=== PATIENT | male | born 1945 | race Caucasian/White ===

== ENCOUNTER 2016-11-04 12:20 | Emergency (ER) | payer MEDICARE ==
[2016-11-04] MEDS ORDERED: NS 0.9% 1000 ML* 1,000 ML IV ONE (14:50)
[2016-11-04 15:01] LABS: Hematocrit 45 % (42-52); Mean Corpuscular HGB Conc 34 g/dl (31-36); Mean Corpuscular Hemoglobin 30 pg (27-31); Mean Corpuscular Volume 90 fL (80-94); Mean Platelet Volume 9 um3 (7.4-10.4); Red Blood Count 4.98 10^6/ul (4.0-5.4); Red Cell Distribution Width 13 % (10.5-15); White Blood Count 11.2 10^3/ul (3.5-10.8)
[2016-11-04 15:13] LABS: ALT 3 U/L (7-52); AST 13 U/L (13-39); Albumin 4.5 g/dL (3.2-5.2); Alkaline Phosphatase 53 U/L (34-104); Anion Gap 7 mmol/L (2-11); BUN/Creatinine Ratio 32.1 (8-20); Blood Urea Nitrogen 25 mg/dL (6-24); C Reactive Protein 5.15 mg/L (< 5.00); CO2 Carbon Dioxide 26 mmol/L (22-32); Calcium 9.8 mg/dL (8.6-10.3); Chloride 102 mmol/L (101-111); EGFR African American 125.8 (>60); EGFR Non-African American 97.8 (>60); Globulin 2.8 g/dL (2-4); Glucose 106 mg/dL (70-100); Lipase < 10 U/L (11.0-82.0); Potassium 3.6 mmol/L (3.5-5.0); Sodium 135 mmol/L (133-145); Total Protein 7.3 g/dL (6.4-8.9)
--- NOTE | 2016-11-04 15:32 | RAD ---
Indication: Diffuse abdominal pain. Diarrhea for 4 days. Nausea and vomiting. Parkinson disease. History of urolithiasis with prior lithotripsy. Comparison: August 09, 2013 CT. Technique: Supine and upright views of the abdomen. Report: Negative for free air beneath the diaphragm. Few dilated small bowel loops in the LEFT abdomen with suggestion of mural thickening. Air-fluid levels at multiple small bowel loops and throughout the nondilated colon. No appreciable pneumatosis or portal venous gas. No suspicious calcifications or mass effect. RIGHT and LEFT dorsal column stimulator leads partially visualized. Unremarkable soft tissue contours. Grossly clear lung bases. IMPRESSION: Mild small bowel dilatation and mural thickening most prominent at the LEFT abdomen. Nonspecific appearance which may reflect gastroenteritis, inflammatory bowel disease, or potentially ischemia. Correlate with clinical presentation and consider CT for further assessment if deemed appropriate.
--- NOTE | 2016-11-04 16:26 | RAD ---
INDICATION: Left lower quadrant pain COMPARISON: CT August 09, 2013 TECHNIQUE: Noncontrast axial source images were acquired from the level hemidiaphragms to the symphysis pubis. The examination was ordered using a renal stone protocol which does not use oral or intravenous contrast and therefore has inherent limitations in evaluating the solid viscera and bowel. Lung bases: There is minimal left basilar atelectasis or scarring. Liver: The liver is normal in size. Noncontrast imaging shows a small hepatic hypodensity in the right hepatic lobe measuring 8 mm, unchanged Gallbladder: There are no calcified gallstones. There is no evidence of wall thickening or pericholecystic fluid.. Spleen: The spleen is normal in size. There is a small splenic granuloma The noncontrast CT appearance is otherwise unremarkable. Pancreas: There is mild pancreatic atrophy. No mass or ductal dilatation is seen on noncontrast imaging. Adrenal glands: No masses are identified. Kidneys/Bladder: There are incompletely characterized renal cortical hypodensities likely representing centimeter and smaller cysts. There is a nonobstructive 6 to 7 mm left renal calculus. Adenopathy: There is no evidence of intraperitoneal or retroperitoneal adenopathy. Evaluation is limited without oral contrast. Fluid collections: There are no free or localized fluid collections. Vessels: The aorta and iliac vessels are normal in caliber. There are no significant atherosclerotic changes. The IVC appears normal Pelvic organs: The prostate is normal in size. There are prostatic calcifications GI tract: Limited evaluation of the bowel shows no abnormality. There is no obstruction. Soft tissues: No significant soft tissue abnormalities of the extraperitoneal abdomen or pelvis are identified. A small, subcutaneous lesion in the left abdomen appears smaller. Osseous structures: There are no acute osseous findings. There are osteoarthritic changes. IMPRESSION: Nonobstructive, 6 mm left renal calculus. Probable renal and hepatic cysts
[2016-11-04] MEDS ORDERED: Morphine INJ* 4 MG/ML 1 ML CARPUJECT IV ONE (17:55)
[2016-11-04] MEDS ORDERED: Ondansetron INJ* 2 MG/ML VIAL IV ONE (17:55)
--- NOTE | 2016-11-04 17:59 | ED ---
nAu Olson Anna, scribed for Deacon Aguirre MD on 11/04/16 at 1618 . Progress - Progress Note Progress Note: DISCUSSED RESULTS WITH PATIENT/. DISCUSSED ADMISSION VERSES DISCHARGE HOME AND F/U WITH DR KEITH. PATIENT PREFERS TO GO HOME. DISCHARGE HOME STABLE. Re-Evaluation - Re-Evaluation First Eval Re-Evaluation Time: 17:43 Change: Unchanged Comment: Discussed results of CT and labs with patient. Patient reports he is still in pain, but he feels he can manage the pain at home and with follow up from his primary care physician, Dr. Keith. He will return to the ED with new or worsening symptoms. He and his are agreeable with this plan. Course/Dx - Course Course Of Treatment: DISCHARGE HOME STABLE. - Diagnoses Provider Diagnoses: Abdominal pain Diagnostics - Vital Signs Vital Signs Temp Pulse Resp BP Pulse Ox 11/04/16 15:12 65 95 11/04/16 14:30 73 123/85 94 11/04/16 14:21 64 95 11/04/16 14:19 145/97 11/04/16 13:23 98.5 F 100 20 120/66 96 11/04/16 12:23 99.5 F 75 20 95/73 97 - Laboratory Lab Results: Lab Results 11/04/16 11/04/16 11/04/16 Range/Units 14:34 14:34 14:34 WBC 11.2 H (3.5-10.8) 10^3/ul RBC 4.98 (4.0-5.4) 10^6/ul Hgb 15.0 (14.0-18.0) g/dl Hct 45 (42-52) % MCV 90 (80-94) fL MCH 30 (27-31) pg MCHC 34 (31-36) g/dl RDW 13 (10.5-15) % Plt Count 238 (150-450) 10^3/ul MPV 9 (7.4-10.4) um3 Neut % (Auto) 67.2 (38-83) % Lymph % (Auto) 23.9 L (25-47) % [place] % (Auto) 7.2 (1-9) % Eos % (Auto) 1.0 (0-6) % Baso % (Auto) 0.7 (0-2) % Absolute Neuts (auto) 7.5 (1.5-7.7) 10^3/ul Absolute Lymphs (auto) 2.7 (1.0-4.8) 10^3/ul Absolute Monos (auto) 0.8 (0-0.8) 10^3/ul Absolute Eos (auto) 0.1 (0-0.6) 10^3/ul Absolute Basos (auto) 0.1 (0-0.2) 10^3/ul Absolute Nucleated RBC 0 10^3/ul Nucleated RBC % 0 Sodium 135 (133-145) mmol/L Potassium 3.6 (3.5-5.0) mmol/L Chloride 102 (101-111) mmol/L Carbon Dioxide 26 (22-32) mmol/L Anion Gap 7 (2-11) mmol/L BUN 25 H (6-24) mg/dL Creatinine 0.78 (0.67-1.17) mg/dL Est GFR ( Amer) 125.8 (>60) Est GFR (Non-Af Amer) 97.8 (>60) BUN/Creatinine Ratio 32.1 H (8-20) Glucose 106 H (70-100) mg/dL Lactic Acid 1.1 (0.5-2.0) mmol/L Calcium 9.8 (8.6-10.3) mg/dL Total Bilirubin 0.80 (0.2-1.0) mg/dL AST 13 (13-39) U/L ALT 3 L (7-52) U/L Alkaline Phosphatase 53 (34-104) U/L C-Reactive Protein 5.15 H (< 5.00) mg/L Total Protein 7.3 (6.4-8.9) g/dL Albumin 4.5 (3.2-5.2) g/dL Globulin 2.8 (2-4) g/dL Albumin/Globulin Ratio 1.6 (1-3) Lipase < 10 L (11.0-82.0) U/L Result Diagrams: 11/04/16 14:34 11/04/16 14:34 Lab Statement: Any lab studies that have been ordered have been reviewed, and results considered in the medical decision making process. - CT CT ABD/PEL CT Interpretation: Positive (See Comments) CT Interpretation Completed By: Radiologist - IMPRESSION: Nonobstructive, 6 mm left renal calculus. Probable renal and hepatic cysts The documentation as recorded by the Anu lamar Anna accurately reflects the service I personally performed and the decisions made by me, Deacon Aguirre MD.
[2016-11-04 18:41] VITALS: BP 162/73
--- NOTE | 2016-11-05 13:10 | ED ---
Tamera Olson Salem, scribed for Tyler Butterfield MD on 11/04/16 at 1507 . Abdominal Pain/Male - HPI Summary HPI Summary: Patient is a 71 y/o male who presents to [facility] with diarrhea since 4 days. Pt reports bloating, vomiting, loss of appetite, and bilateral lower quadrant abdominal pain. He also reports GERD that began at about the same time as the diarrhea (4 days). Recumbent position increases fluctuants and burping. The pt states that Dr. Keith had recently changed his medication to Amatiza and he is the one who sent the pt to the ED for these symptoms. Family member present at bedside is also concerned about dehydration. Pt has a PMHx of PD. - History of Current Complaint Chief Complaint: EDNauseaVomitDiarrh Stated Complaint: N/V/D Time Seen by Provider: 11/04/16 14:09 Hx Obtained From: Patient, Family/Director Talent Onset/Duration: Gradual Onset, Lasting Hours Severity Initially: Moderate Severity Currently: Moderate Pain Intensity: 2 Pain Scale Used: 0-10 Numeric Location: Discrete At: RUQ, Discrete At: RLQ Aggravating Factor(s): Other: - Recumbent position. Alleviating Factor(s): Nothing Associated Signs And Symptoms: Positive: Nausea, Vomiting, Diarrhea, Other - Bloating, loss of appetite, and GERD. - Allergies/Home Medications Allergies/Adverse Reactions: Allergies Allergy/AdvReac Type Severity Reaction Status Date / Time Iohexol [From Omnipaque] Allergy Severe Difficulty Verified 11/04/16 12:23 Breathing PMH/Surg Hx/FS Hx/Imm Hx Endocrine/Hematology History: Reports: Hx Diabetes - BORDERLINE TYPE 2, CONTROLLED WITH DIET, NO MEDS Denies: Hx Anticoagulant Therapy, Hx Systemic Lupus Erythematosus Cardiovascular History: Reports: Hx Angina - NONE SINCE 2006 [place], Hx Coronary Artery Disease - STENT IN RCA, Hx Hypertension - ON MEDICATION FOR, Hx Myocardial Infarction, Hx Rheumatic Fever - YOUNG CHILD Denies: Hx Congestive Heart Failure, Hx Pacemaker/ICD Respiratory History: Denies: Hx Asthma, Hx Chronic Obstructive Pulmonary Disease (COPD) GI History: Reports: Hx Gastroesophageal Reflux Disease - TAKES MEDS JUST PRN, Hx Jaundice - as a child Denies: Other GI Disorders History: Reports: Hx Benign Prostatic Hyperplasia, Hx Kidney Stones - HISTORY OF, Other Problems/Disorders - ENLARGED PROSTATE Denies: Hx Dialysis, Hx Renal Disease Musculoskeletal History: Reports: Hx Arthritis - ALL OVER, Hx Back Problems, Hx Fibromyalgia, Other Musculoskeletal History - parkinsons Denies: Hx Rheumatoid Arthritis Sensory History: Reports: Hx Cataracts - BILATERAL, Hx Contacts or Glasses - GLASSES, Hx Vision Problem Denies: Hx Hearing Aid Opthamlomology History: Reports: Hx Cataracts - BILATERAL, Hx Contacts or Glasses - GLASSES, Hx Vision Problem Neurological History: Reports: Hx Headaches, Hx Migraine, Hx Transient Ischemic Attacks (TIA), Other Neuro Impairments/Disorders - Hx Parkinsons Denies: Hx Dementia, Hx Developmental Delay Psychiatric History: Reports: Hx Anxiety - PRN MEDICATION FOR, Hx Depression - ROUTINE MEDICATION FOR - Cancer History Hx Chemotherapy: No - Surgical History Surgery Procedure, Year, and Place: . 2006 CARDIAC stent placed to [facility] in [place]. [place] [facility] [place] in [place]. 02/2016-[facility]IZATION[place] [place] Hx Anesthesia Reactions: Yes - UNSURE IF THE REACTION 02/2016 WAS FROM CONTRAST OR FROM SEDATION - Immunization History Date of Tetanus Vaccine: 2008 Date of Influenza Vaccine: Unknown Infectious Disease History: No Infectious Disease History: Denies: Hx Clostridium Difficile, Hx Hepatitis, Hx Human Immunodeficiency Virus (HIV), Traveled Outside the in Last 30 Days - Family History Known Family History: Positive: Other - Colon [place] - Social History Alcohol Use: None Substance Use Type: Reports: None Smoking Status (MU): Former Smoker Type: Cigarettes Amount Used/How Often: 1 PPD- 1 1/2 PPD X 37 YEARS Have You Smoked in the Last Year: No Review of Systems Negative: Fever Positive: Abdominal Pain, Vomiting, Diarrhea, Nausea, Other - Bloating. Loss of appetite. All Other Systems Reviewed And Are Negative: Yes Physical Exam Triage Information Reviewed: Yes Vital Signs On Initial Exam: Initial Vitals Temp Pulse Resp BP Pulse Ox 99.5 F 75 20 95/73 97 11/04/16 12:23 11/04/16 12:23 11/04/16 12:23 11/04/16 12:23 11/04/16 12:23 Vital Signs Reviewed: Yes Appearance: Positive: Well-Appearing, No Pain Distress Skin: Positive: Warm, Skin Color Reflects Adequate Perfusion, Dry Head/Face: Positive: Normal Head/Face Inspection Eyes: Positive: Normal ENT: Positive: Other - DMM. Neck: Positive: Supple, Nontender Respiratory/Lung Sounds: Positive: Clear to Auscultation, Breath Sounds Present Cardiovascular: Positive: RRR Abdomen Description: Positive: Nontender, Soft Bowel Sounds: Positive: Present Musculoskeletal: Positive: Normal Neurological: Positive: Normal, Other - Resting tremor secondary to PD. Psychiatric: Positive: Normal, Affect/Mood Appropriate AVPU Assessment: Alert - Dionisio Coma Scale Coma Scale Total: 15 Diagnostics - Vital Signs Vital Signs Temp Pulse Resp BP Pulse Ox 11/04/16 14:30 73 123/85 94 11/04/16 14:21 64 95 11/04/16 14:19 145/97 11/04/16 13:23 98.5 F 100 20 120/66 96 11/04/16 12:23 99.5 F 75 20 95/73 97 - Laboratory Lab Results: Lab Results 11/04/16 11/04/16 11/04/16 Range/Units 14:34 14:34 14:34 WBC 11.2 H (3.5-10.8) 10^3/ul RBC 4.98 (4.0-5.4) 10^6/ul Hgb 15.0 (14.0-18.0) g/dl Hct 45 (42-52) % MCV 90 (80-94) fL MCH 30 (27-31) pg MCHC 34 (31-36) g/dl RDW 13 (10.5-15) % Plt Count 238 (150-450) 10^3/ul MPV 9 (7.4-10.4) um3 Neut % (Auto) 67.2 (38-83) % Lymph % (Auto) 23.9 L (25-47) % [place] % (Auto) 7.2 (1-9) % Eos % (Auto) 1.0 (0-6) % Baso % (Auto) 0.7 (0-2) % Absolute Neuts (auto) 7.5 (1.5-7.7) 10^3/ul Absolute Lymphs (auto) 2.7 (1.0-4.8) 10^3/ul Absolute Monos (auto) 0.8 (0-0.8) 10^3/ul Absolute Eos (auto) 0.1 (0-0.6) 10^3/ul Absolute Basos (auto) 0.1 (0-0.2) 10^3/ul Absolute Nucleated RBC 0 10^3/ul Nucleated RBC % 0 Sodium 135 (133-145) mmol/L Potassium 3.6 (3.5-5.0) mmol/L Chloride 102 (101-111) mmol/L Carbon Dioxide 26 (22-32) mmol/L Anion Gap 7 (2-11) mmol/L BUN 25 H (6-24) mg/dL Creatinine 0.78 (0.67-1.17) mg/dL Est GFR ( Amer) 125.8 (>60) Est GFR (Non-Af Amer) 97.8 (>60) BUN/Creatinine Ratio 32.1 H (8-20) Glucose 106 H (70-100) mg/dL Lactic Acid 1.1 (0.5-2.0) mmol/L Calcium 9.8 (8.6-10.3) mg/dL Total Bilirubin 0.80 (0.2-1.0) mg/dL AST 13 (13-39) U/L ALT 3 L (7-52) U/L Alkaline Phosphatase 53 (34-104) U/L C-Reactive Protein 5.15 H (< 5.00) mg/L Total Protein 7.3 (6.4-8.9) g/dL Albumin 4.5 (3.2-5.2) g/dL Globulin 2.8 (2-4) g/dL Albumin/Globulin Ratio 1.6 (1-3) Lipase < 10 L (11.0-82.0) U/L Result Diagrams: 11/04/16 14:34 11/04/16 14:34 Lab Statement: Any lab studies that have been ordered have been reviewed, and results considered in the medical decision making process. - Radiology Abd Xray Interpretation: Positive (See Comments) - Mild small bowel dilatation and mural thickening most prominent at the LEFT abdomen. Nonspecific appearance which may reflect gastroenteritis, inflammatory bowel disease, or potentially ischemia. Correlate with clinical presentation and consider CT for further assessment if deemed appropriate. Radiology Interpretation Completed By: Radiologist - See EMR - CT Ab/P wo contrast CT Interpretation Completed By: Radiologist - See EMR CT ABD/PEL CT Interpretation: Positive (See Comments) CT Interpretation Completed By: Radiologist - IMPRESSION: Nonobstructive, 6 mm left renal calculus. Probable renal and hepatic cysts Re-Evaluation - Re-Evaluation First Eval Re-Evaluation Time: 15:51 Comment: MD in room to update pt on X-ray results. Abdominal Pain Fem Course/Dx - Course Course Of Treatment: Mr. Ruiz presented to the ED with bloating and abdominal pain of several days duration. His WBC's and CRP wefre slightly elevted and a plain abdominal elsa was suggestive of possible SBO. A CT scan was ordered without contrast as he is allergic. - Diagnoses Provider Diagnoses: Abdominal pain - Provider Notifications Discussed Care Of Patient With: Dr. Aguirre Time Discussed With Above Provider: 16:00 - Change of shift Discharge - Discharge Plan Condition: Stable Disposition: HOME Patient Education Materials: Gas and Bloating (ED), Abdominal Pain (ED) Referrals: Filemon Wetzel MD [Primary Care Provider] - Merrick Keith MD [Medical Doctor] - Additional Instructions: FOLLOW UP WITH DR KEITH. RETURN TO THE EMERGENCY DEPARTMENT FOR ANY WORSENING OF YOUR CONDITION; PAIN, FEVER, YOU FEEL ILL OR QUESTIONS OR CONCERNS. The documentation as recorded by the Tamera lamar Salem accurately reflects the service I personally performed and the decisions made by me, Tyler Butterfield MD.
== END 2016-11-04 18:41 | disposition home or self-care (01) ==
LOC: ED 12:20
DX: R10.9 Unspecified abdominal pain (principal); R14.0 Abdominal distension (gaseous); K21.9 Gastro-esophageal reflux disease without esophagitis; R11.2 Nausea with vomiting, unspecified; R19.7 Diarrhea, unspecified
CPT/HCPCS: 36415; 74020; 74176; 80053; 83605; 83690; 85025; 86140; 96374; 96375; 99282; J2270; J2405

== ENCOUNTER 2017-11-17 19:40 | Inpatient (IN) | payer MEDICARE ==
[2017-11-17] MEDS ORDERED: Acetaminophen TAB* 325 MG PO ONE (20:35)
[2017-11-17] MEDS ORDERED: Piperacillin/Tazobac ADVAN(*) 3.375 GM in NS 0.9% 100 ML* 100 ML IVPB ONE (20:35)
[2017-11-17] MEDS ORDERED: Vancomycin(*) 1,000 MG in NS 0.9% 250 ML* 250 ML IVPB ONE (20:35)
[2017-11-17] MEDS ORDERED: Morphine INJ* 4 MG/ML 1 ML SYRINGE (NEW SYRINGE VERSION) IV ONE (20:36)
[2017-11-17] MEDS ORDERED: Ondansetron INJ* 2 MG/ML VIAL IV ONE (20:36)
[2017-11-17] MEDS: NS 0.9% 1000 ML*IV.FLUID IV ONE ×3 (21:04→23:57)
--- NOTE | 2017-11-17 21:15 | RAD ---
INDICATION: Generalized weakness and body aches for one week. Comparison: November 04, 2016 CT abdomen. June 19, 2016 chest radiograph. Technique: Upright AP 0 hours Report: Elevated lung volumes and both diffuse mild prominence of the interstitial markings and patchy rarefaction of the mid to upper lung zone interstitial markings. Mild linear consolidation at the lung bases is most suspicious for subsegmental atelectasis. No suspicious focal pulmonary lesion, pleural effusion, or pneumothorax. The heart, pulmonary vasculature, and mediastinal contours are unremarkable. Spinal cord stimulator leads noted without change. IMPRESSION: Stigmata of obstructive lung disease. Linear atelectasis at the lung bases. No compelling evidence for pneumonia.
[2017-11-17 21:43] LABS: ABS Basophils 0 10^3/ul (0-0.2); ABS Eosinophils 0 10^3/ul (0-0.6); ABS Monocytes 0.7 10^3/ul (0-0.8); ABS Neutrophils 6.8 10^3/ul (1.5-7.7); ABS Nucleated RBC 0 10^3/ul; Eosinophil % 0 % (0-6); Hematocrit 41 % (42-52); Hemoglobin 13.8 g/dl (14.0-18.0); Lymphocyte % 12.1 % (25-47); Mean Corpuscular HGB Conc 34 g/dl (31-36); Mean Corpuscular Hemoglobin 31 pg (27-31); Mean Corpuscular Volume 93 fL (80-94); Mean Platelet Volume 8 um3 (7.4-10.4); Nucleated Red Blood Cells % 0; Platelet Count 172 10^3/ul (150-450); Red Blood Count 4.39 10^6/ul (4.0-5.4); Red Cell Distribution Width 13 % (10.5-15); White Blood Count 8.6 10^3/ul (3.5-10.8)
[2017-11-17 21:50] LABS: INR 1.1 (0.77-1.02)
[2017-11-17 22:01] LABS: EGFR Non-African American 112.4 (>60)
--- NOTE | 2017-11-17 22:54 | ED ---
Shane Olson Angela, scribed for Tu Ding MD on 11/17/17 at 203 . Complex/Multi-Sys Presentation - HPI Summary HPI Summary: This pt is a 72 y/o male presenting to [facility] c/o body aches for "years" and generalized weakness. Pt is on lift chair but does not ambulate very much, due to his parkinson's. Pt has hx of Parkinson's Disease, diagnosed about 10 years ago. Pt ambulates at baseline with a cane and holding on to the wall. Per , pt has decreased appetite and bed sores due to decreased ambulation. Denies nausea, vomiting, diarrhea. Pt is currently on amitiza for constipation. Pt lives at home with his only. He takes oxycodone and acetaminophen for pain at home. one pill at 15:30 today. Pt has 100.8 F fever currently in the ED. - History Of Current Complaint Chief Complaint: EDWeakness Time Seen by Provider: 11/17/17 20:17 Hx Obtained From: Patient, Family/Transplanter Orchid - Onset/Duration: Lasting Days, Still Present Timing: Days Severity Currently: Moderate Location: Pain At: - all over body Aggravating Factor(s): nothing Alleviating Factor(s): nothing Associated Signs And Symptoms: Positive: Weakness - generalized, Decreased Oral Intake, Fever, Other - constipation, body aches, bed sores. Negative: Nausea, Vomiting, Diarrhea - Allergies/Home Medications Allergies/Adverse Reactions: Allergies Allergy/AdvReac Type Severity Reaction Status Date / Time MS Iohexol [From Omnipaque] Allergy Severe Difficulty Verified 11/17/17 20:08 Breathing PMH/Surg Hx/FS Hx/Imm Hx Endocrine/Hematology History: Reports: Hx Diabetes - BORDERLINE TYPE 2, CONTROLLED WITH DIET, NO MEDS Denies: Hx Anticoagulant Therapy, Hx Systemic Lupus Erythematosus Cardiovascular History: Reports: Hx Angina - NONE SINCE 2006 [place], Hx Coronary Artery Disease - STENT IN RCA, Hx Hypertension - ON MEDICATION FOR, Hx Myocardial Infarction, Hx Rheumatic Fever - YOUNG CHILD Denies: Hx Congestive Heart Failure, Hx Pacemaker/ICD Respiratory History: Denies: Hx Asthma, Hx Chronic Obstructive Pulmonary Disease (COPD) GI History: Reports: Hx Gastroesophageal Reflux Disease - TAKES MEDS JUST PRN, Hx Jaundice - as a child Denies: Other GI Disorders History: Reports: Hx Benign Prostatic Hyperplasia, Hx Kidney Stones - HISTORY OF, Other Problems/Disorders - ENLARGED PROSTATE Denies: Hx Dialysis, Hx Renal Disease Musculoskeletal History: Reports: Hx Arthritis - ALL OVER, Hx Back Problems, Hx Fibromyalgia, Other Musculoskeletal History - parkinsons Denies: Hx Rheumatoid Arthritis Sensory History: Reports: Hx Cataracts - BILATERAL, Hx Contacts or Glasses - GLASSES, Hx Vision Problem Denies: Hx Hearing Aid Opthamlomology History: Reports: Hx Cataracts - BILATERAL, Hx Contacts or Glasses - GLASSES, Hx Vision Problem Neurological History: Reports: Hx Headaches, Hx Migraine, Hx Transient Ischemic Attacks (TIA), Other Neuro Impairments/Disorders - Hx Parkinsons Denies: Hx Dementia, Hx Developmental Delay Psychiatric History: Reports: Hx Anxiety - PRN MEDICATION FOR, Hx Depression - ROUTINE MEDICATION FOR - Cancer History Hx Chemotherapy: No - Surgical History Surgery Procedure, Year, and Place: . 2006 CARDIAC stent placed to RCA in [place]. 2010 lithotripsy [facility] [place]. 2010 and 2011 DORSAL STIMULATOR in [place]. 02/2016-HEART CATHETERIZATION-[facility] [place] Hx Anesthesia Reactions: Yes - UNSURE IF THE REACTION 02/2016 WAS FROM CONTRAST OR FROM SEDATION - Immunization History Date of Tetanus Vaccine: 2008 Date of Influenza Vaccine: Has not received Infectious Disease History: No Infectious Disease History: Denies: Hx Clostridium Difficile, Hx Hepatitis, Hx Human Immunodeficiency Virus (HIV), Traveled Outside the [place] in Last 30 Days - Family History Known Family History: Positive: Other - Colon [place] - Social History Alcohol Use: None Substance Use Type: Reports: None Smoking Status (MU): Former Smoker Type: Cigarettes Amount Used/How Often: 1 PPD- 1 1/2 PPD X 37 YEARS Have You Smoked in the Last Year: No Review of Systems Constitutional: Other - decreased appetite Positive: Fever Gastrointestinal: Other - constipation Positive: Myalgia Skin: Other - bed sores Positive: Weakness All Other Systems Reviewed And Are Negative: Yes Physical Exam - Summary Physical Exam Summary: VITAL SIGNS: Reviewed. GENERAL: Patient is a well-developed and nourished male who seems lethargic and weak. Patient is not in any acute respiratory distress. HEAD AND FACE: No signs of trauma. No ecchymosis, hematomas or skull depressions. No sinus tenderness. EYES: PERRLA, EOMI x 2, No injected conjunctiva, no nystagmus. EARS: Hearing grossly intact. Ear canals and tympanic membranes are within normal limits. MOUTH: Oropharynx within normal limits. NECK: Supple, trachea is midline, no adenopathy, no JVD, no carotid bruit, no c- spine tenderness, neck with full ROM. CHEST: Symmetric, no tenderness at palpation LUNGS: Clear to auscultation bilaterally. No wheezing or crackles. CVS: Regular rate and rhythm, S1 and S2 present, no murmurs or gallops appreciated. ABDOMEN: Soft, non-tender. No signs of distention. No rebound no guarding, and no masses palpated. Bowel sounds are normal. EXTREMITIES: FROM in all major joints, no edema, no cyanosis or clubbing. NEURO: Alert and oriented x 3. No acute neurological deficits. Speech is normal and follows commands. Static tremors of left hand. SKIN: Dry and warm. Stage 2 ulcer over the medial buttocks with surrounding erythema. Triage Information Reviewed: Yes Vital Signs On Initial Exam: Initial Vitals Temp Pulse Resp BP Pulse Ox 98.4 F 94 16 144/73 93 11/17/17 19:45 11/17/17 19:45 11/17/17 19:45 11/17/17 19:45 11/17/17 19:45 Vital Signs Reviewed: Yes Diagnostics - Vital Signs Vital Signs Temp Pulse Resp BP Pulse Ox 11/17/17 20:01 25 11/17/17 20:00 126/55 11/17/17 19:45 98.4 F 94 16 144/73 93 - Laboratory Result Diagrams: 11/17/17 21:20 11/17/17 21:20 Lab Statement: Any lab studies that have been ordered have been reviewed, and results considered in the medical decision making process. - Radiology Chest XR Xray Interpretation: Positive (See Comments) - IMPRESSION: Stigmata of obstructive lung disease. Linear atelectasis at the lung bases. No compelling evidence for pneumonia. Dr. Ding has reviewed this radiology report. Radiology Interpretation Completed By: Radiologist - EKG 20:04 Cardiac Rate: NL EKG Rhythm: Sinus Rhythm - at 88 bpm EKG Interpretation: Right bundle branch block Complex Multi-Symp Course/Dx Course Of Treatment: Pt is a 72 y/o male who presents with body aches for "years " and generalized weakness. Chest XR shows stigmata of obstructive lung disease. Linear atelectasis at the lung bases. No compelling evidence for pneumonia. In the ED course, the pt was given morphine, Tylenol, vancomycin, Zosyn, and Zofran. I discussed pt care with Dr. Martin, hospitalist, who has agreed to admit the pt. - Diagnoses Provider Diagnoses: Weakness, Decubitus ulcer - Physician Notifications Discussed Care Of Patient With: Maxwell Martin Time Discussed With Above Provider: 22:33 Instructed by Provider To: Other - I discussed pt care with Dr. Martin, hospitalist, who has agreed to admit the pt. Discharge - Discharge Plan Condition: Stable Disposition: ADMITTED TO [facility] Referrals: Filemon Wetzel MD [Primary Care Provider] - The documentation as recorded by the Shane lamar Angela accurately reflects the service I personally performed and the decisions made by , Tu Ding MD.
--- NOTE | 2017-11-17 23:51 | HP ---
H&P (Free Text) History and Physical: PCP: Curt Wetzel MD Date/Time: 11/17/2017 2350 CC: generalized malaise HPI: Mr Ruiz is a 72YO white male HX Parkinsonism, CAD/OR/stent, TIA, fibromyalgia, chronic LBP, who reports intermittent nausea without vomiting, poor appetite, loose stools, intermittent F/C, easy fatigability and sweats over the past year. He has lost 20-25 pounds over the past 6 months (40 per his ). He spends most of his time in a lift chair, only ambulating around his home 2-3 times daily, often with a cane or with the assistance of his . Tonight he felt his generalized weakness was worse prompting this evaluation. He denies chest pain, SOB, palpitations, abdominal pain, change in bowel/bladder , or other issues. ED physician found his temperature to be 101.3F with an saO2 in the 80s. Influenza is negative. Lab work is unremarkable. PMedHx CAD/OR/stent Parkinsonism HTN HLD urolithiasis fibromyalgia TIA chronic LBP vertigo constipation dominant IBS Ambulatory Orders Aspirin TAB* [Aspirin 325 MG TAB*] 325 mg PO DAILY 11/17/12 Carbidopa/Levodop 25/100 MG(*) [Sinemet 25/100 TAB(*)] 1 tab PO QID 11/17/12 Metoprolol Tartrate TAB* [Lopressor TAB*] 25 mg PO BID 11/17/12 Nitroglycerin TAB 0.4 MG* 0.4 mg SL Q5M PRN 11/17/12 Simvastatin TAB(NF) [Zocor 20 MG (NF)] 40 mg PO BEDTIME 11/17/12 Diazepam TAB(*) [Valium TAB(*)] 10 mg PO TID PRN 08/11/13 Meclizine TAB* [Antivert 12.5 TAB*] 12.5 - 25 mg PO TID PRN 08/11/13 oxyCODONE/Acetamin 5/325 MG* [Percocet 5/325 TAB*] 1 tab PO Q4H PRN 08/24/13 Multivitamins/Minerals TAB* [Thera M Plus TAB*] 1 tab PO DAILY 10/12/13 traZODone TAB* [Desyrel TAB*] 50 mg PO BEDTIME 07/29/16 Lubiprostone [Amitiza] 24 mcg PO BID 05/06/17 Allergies iohexol Allergy (Verified 11/18/17 01:56) Difficulty Breathing PSurgHx L meniscal repair R rotator cuff repair B carpal tunnel release spinal stimulator implant/removal x2 SocHx: quit smoking ~30 years ago w/ ~45PYHX, no alcohol or recreational drugs; lives with his ; full code status FamHx: Mother: passed at 83 2nd complication of Alzheimer's; Father: passed in his 80s w/ CVA & colon CA; twin brother: estranged ROS: as above, otherwise reviewed and all were negative vitals: Vital Signs Temp 37.5 C 11/18/17 07:39 Pulse 111 11/18/17 07:39 Resp 20 11/18/17 07:39 BP 132/53 11/18/17 07:39 Pulse Ox 94 11/18/17 07:42 Constitutional: NAD, normally developed, frail appearing elderly white male HEENM: atraumatic; sclera/conjunctiva: anicteric/clear; hearing: clinically mildly decreased; oropharynx: clear, mucosa tacky Neck: soft tissue: non-tender; thyroid: normal Pulmonary: diminished B, fair to good aeration, ineffective cough, no accessory muscle use CV: RR/RR, normal S1S2, no carotid bruit, no jugular venous distention, 2+ B DP/ PT, no edema Abdominal: soft, non-distended, non-tender, no rebound/guarding/rigidity, normoactive bowel sounds, no hepatosplenomegaly or masses, no costovertebral angle tenderness Musculoskeletal: general: grossly intact, mild tenderness to B shins w/ palpation Integumental: L gluteal ~5.5cm non-blanching stg 2 pressure ulcer with full thickness fissure, mildly tender to palpation, no malodor/warmth/induration Psychiatric orientation: AA&O to PPS affect: calm mood: pleasant/cooperative eye contact: good content: reliable responses: timely insight: fair Testing: Lab Results 11/17/17 11/17/17 11/17/17 Range/Units 21:20 21:20 21:20 WBC 8.6 (3.5-10.8) 10^3/ul RBC 4.39 (4.0-5.4) 10^6/ul Hgb 13.8 L (14.0-18.0) g/dl Hct 41 L (42-52) % MCV 93 (80-94) fL MCH 31 (27-31) pg MCHC 34 (31-36) g/dl RDW 13 (10.5-15) % Plt Count 172 (150-450) 10^3/ul MPV 8 (7.4-10.4) um3 Neut % (Auto) 79.1 (38-83) % Lymph % (Auto) 12.1 L (25-47) % [place] % (Auto) 8.6 H (0-7) % Eos % (Auto) 0 (0-6) % Baso % (Auto) 0.2 (0-2) % Absolute Neuts (auto) 6.8 (1.5-7.7) 10^3/ul Absolute Lymphs (auto) 1.0 (1.0-4.8) 10^3/ul Absolute Monos (auto) 0.7 (0-0.8) 10^3/ul Absolute Eos (auto) 0 (0-0.6) 10^3/ul Absolute Basos (auto) 0 (0-0.2) 10^3/ul Absolute Nucleated RBC 0 10^3/ul Nucleated RBC % 0 INR (Anticoag Therapy) 1.10 H (0.77-1.02) APTT 36.3 (26.0-36.3) seconds Sodium 136 (133-145) mmol/L Potassium 3.7 (3.5-5.0) mmol/L Chloride 103 (101-111) mmol/L Carbon Dioxide 25 (22-32) mmol/L Anion Gap 8 (2-11) mmol/L BUN 15 (6-24) mg/dL Creatinine 0.69 (0.67-1.17) mg/dL Est GFR ( Amer) 144.5 (>60) Est GFR (Non-Af Amer) 112.4 (>60) BUN/Creatinine Ratio 21.7 H (8-20) Glucose 99 (70-100) mg/dL Lactic Acid (0.5-2.0) mmol/L Calcium 8.7 (8.6-10.3) mg/dL Total Bilirubin 0.60 (0.2-1.0) mg/dL AST 10 L (13-39) U/L ALT 8 (7-52) U/L Alkaline Phosphatase 43 (34-104) U/L Troponin I 0.00 (<0.04) ng/mL Total Protein 6.1 L (6.4-8.9) g/dL Albumin 3.5 (3.2-5.2) g/dL Globulin 2.6 (2-4) g/dL Albumin/Globulin Ratio 1.3 (1-3) Urine Color Urine Appearance Urine pH (5-9) Ur Specific [place] (1.010-1.030) Urine Protein (Negative) Urine Ketones (Negative) Urine Blood (Negative) Urine Nitrate (Negative) Urine Bilirubin (Negative) Urine Urobilinogen (Negative) Ur Leukocyte Esterase (Negative) Urine WBC (Auto) (Absent) Urine RBC (Auto) (Absent) Urine Bacteria (Absent) Urine Glucose (Negative) Influenza A (Rapid) (Negative) Influenza B (Rapid) (Negative) 11/17/17 11/17/17 11/18/17 Range/Units 21:20 21:59 02:05 WBC (3.5-10.8) 10^3/ul RBC (4.0-5.4) 10^6/ul Hgb (14.0-18.0) g/dl Hct (42-52) % MCV (80-94) fL MCH (27-31) pg MCHC (31-36) g/dl RDW (10.5-15) % Plt Count (150-450) 10^3/ul MPV (7.4-10.4) um3 Neut % (Auto) (38-83) % Lymph % (Auto) (25-47) % [place] % (Auto) (0-7) % Eos % (Auto) (0-6) % Baso % (Auto) (0-2) % Absolute Neuts (auto) (1.5-7.7) 10^3/ul Absolute Lymphs (auto) (1.0-4.8) 10^3/ul Absolute Monos (auto) (0-0.8) 10^3/ul Absolute Eos (auto) (0-0.6) 10^3/ul Absolute Basos (auto) (0-0.2) 10^3/ul Absolute Nucleated RBC 10^3/ul Nucleated RBC % INR (Anticoag Therapy) (0.77-1.02) APTT (26.0-36.3) seconds Sodium (133-145) mmol/L Potassium (3.5-5.0) mmol/L Chloride (101-111) mmol/L Carbon Dioxide (22-32) mmol/L Anion Gap (2-11) mmol/L BUN (6-24) mg/dL Creatinine (0.67-1.17) mg/dL Est GFR ( Amer) (>60) Est GFR (Non-Af Amer) (>60) BUN/Creatinine Ratio (8-20) Glucose (70-100) mg/dL Lactic Acid 0.8 (0.5-2.0) mmol/L Calcium (8.6-10.3) mg/dL Total Bilirubin (0.2-1.0) mg/dL AST (13-39) U/L ALT (7-52) U/L Alkaline Phosphatase (34-104) U/L Troponin I (<0.04) ng/mL Total Protein (6.4-8.9) g/dL Albumin (3.2-5.2) g/dL Globulin (2-4) g/dL Albumin/Globulin Ratio (1-3) Urine Color Yellow Urine Appearance Clear Urine pH 5.0 (5-9) Ur Specific [place] 1.015 (1.010-1.030) Urine Protein Negative (Negative) Urine Ketones 1+ A (Negative) Urine Blood 2+ A (Negative) Urine Nitrate Negative (Negative) Urine Bilirubin Negative (Negative) Urine Urobilinogen Negative (Negative) Ur Leukocyte Esterase Negative (Negative) Urine WBC (Auto) Trace(0-5/hpf) (Absent) Urine RBC (Auto) 1+(3-5/hpf) A (Absent) Urine Bacteria Absent (Absent) Urine Glucose Negative (Negative) Influenza A (Rapid) Negative (Negative) Influenza B (Rapid) Negative (Negative) 11/18/17 Range/Units 08:20 WBC 6.6 (3.5-10.8) 10^3/ul RBC 4.35 (4.0-5.4) 10^6/ul Hgb 13.6 L (14.0-18.0) g/dl Hct 40 L (42-52) % MCV 93 (80-94) fL MCH 31 (27-31) pg MCHC 34 (31-36) g/dl RDW 13 (10.5-15) % Plt Count 156 (150-450) 10^3/ul MPV 8 (7.4-10.4) um3 Neut % (Auto) (38-83) % Lymph % (Auto) (25-47) % [place] % (Auto) (0-7) % Eos % (Auto) (0-6) % Baso % (Auto) (0-2) % Absolute Neuts (auto) (1.5-7.7) 10^3/ul Absolute Lymphs (auto) (1.0-4.8) 10^3/ul Absolute Monos (auto) (0-0.8) 10^3/ul Absolute Eos (auto) (0-0.6) 10^3/ul Absolute Basos (auto) (0-0.2) 10^3/ul Absolute Nucleated RBC 10^3/ul Nucleated RBC % INR (Anticoag Therapy) (0.77-1.02) APTT (26.0-36.3) seconds Sodium (133-145) mmol/L Potassium (3.5-5.0) mmol/L Chloride (101-111) mmol/L Carbon Dioxide (22-32) mmol/L Anion Gap (2-11) mmol/L BUN (6-24) mg/dL Creatinine (0.67-1.17) mg/dL Est GFR ( Amer) (>60) Est GFR (Non-Af Amer) (>60) BUN/Creatinine Ratio (8-20) Glucose (70-100) mg/dL Lactic Acid (0.5-2.0) mmol/L Calcium (8.6-10.3) mg/dL Total Bilirubin (0.2-1.0) mg/dL AST (13-39) U/L ALT (7-52) U/L Alkaline Phosphatase (34-104) U/L Troponin I (<0.04) ng/mL Total Protein (6.4-8.9) g/dL Albumin (3.2-5.2) g/dL Globulin (2-4) g/dL Albumin/Globulin Ratio (1-3) Urine Color Urine Appearance Urine pH (5-9) Ur Specific [place] (1.010-1.030) Urine Protein (Negative) Urine Ketones (Negative) Urine Blood (Negative) Urine Nitrate (Negative) Urine Bilirubin (Negative) Urine Urobilinogen (Negative) Ur Leukocyte Esterase (Negative) Urine WBC (Auto) (Absent) Urine RBC (Auto) (Absent) Urine Bacteria (Absent) Urine Glucose (Negative) Influenza A (Rapid) (Negative) Influenza B (Rapid) (Negative) ECG, personally reviewed: sinus RBBB rate 88, T-wave inversion V1-4, non- specific ST-T changes diffusely CXR, personally reviewed: IMPRESSION: Stigmata of obstructive lung disease. Linear atelectasis at the lung bases. No compelling evidence for pneumonia. Impression: 72M presenting with fever of uncertain source and unrelated stg 2 pressure ulcer on L gluteal cleft DIAGNOSIS & PLAN Primary fever of uncertain origin : blood & urine CXs : given vancomycin, piperacillin/tazobactam, & azithromycin in ED : will hold further ABX & monitor temperature & WBC curves along with CXs : supportive care generalized deconditioning : PT/OT evaluations : will likely need inpatient rehab vs long-term placement, if accepting Secondary CAD/OR/stent : continue aspirin Parkinsonism : continue carbi/levodopa & diazepam HTN : continue metoprolol HLD : continue simvastatin TIA : continue aspirin chronic LBP : continue oxycodoneAPA vertigo : continue meclizine constipation dominant IBS : continue lubiprostone Admission Rational: observation for fever, initiate TX for stg 2 gluteal decubitus DVTp: SCDs & heparin Code Status: full HCP:
[2017-11-18] MEDS ORDERED: Diazepam TAB(*) 10 MG PO PRN (01:21)
[2017-11-18] MEDS ORDERED: Meclizine TAB* 12.5 MG PO PRN (01:21)
[2017-11-18] MEDS ORDERED: CMCS: Melatonin (NF) 3 MG TAB PO PRN (01:24)
[2017-11-18 02:35] LABS: Urine Appearance Clear; Urine Blood 2+ (Negative); Urine Color Yellow; Urine Ketones 1+ (Negative); Urine Protein Negative (Negative); Urine Specific Gravity 1.015 (1.010-1.030); Urine Urobilinogen Negative (Negative)
[2017-11-18] MEDS: NS 0.9% 1000 ML* 1,000 ML IV SCH ×2 (02:35→12:41)
[2017-11-18] MEDS: oxyCODONE/Acetamin 5/325 MG* TAB PO PRN ×4 (02:45→19:51)
[2017-11-18] MEDS: Omeprazole CAP* 20 MG PO SCH (05:07)
[2017-11-18] MEDS ORDERED: Albuterol 2.5 MG/3 ML NEB.SOL* (0.083%) INH PRN (08:21)
[2017-11-18] MEDS ORDERED: Benzonatate CAP* 100 MG PO PRN (08:22)
[2017-11-18 08:30] LABS: Hematocrit 40 % (42-52); Hemoglobin 13.6 g/dl (14.0-18.0); Mean Corpuscular HGB Conc 34 g/dl (31-36); Mean Corpuscular Hemoglobin 31 pg (27-31); Mean Corpuscular Volume 93 fL (80-94); Mean Platelet Volume 8 um3 (7.4-10.4); Platelet Count 156 10^3/ul (150-450); Red Blood Count 4.35 10^6/ul (4.0-5.4); Red Cell Distribution Width 13 % (10.5-15); White Blood Count 6.6 10^3/ul (3.5-10.8)
[2017-11-18] MEDS: Mometasone/Formoter 100/5 MDI INH SCH ×2 (08:39→20:02)
[2017-11-18] MEDS ORDERED: Azithromycin IV(*) 500 MG in D5W 250 ML BAG* 250 ML IVPB SCH (09:00)
[2017-11-18] MEDS: Azithromycin IV(*) 500 MG in NS 0.9% 250 ML* 250 ML IVPB SCH (09:30)
[2017-11-18] MEDS: Aspirin TAB* 325 MG PO SCH (09:31)
[2017-11-18] MEDS: Metoprolol Tartrate TAB* 25 MG PO SCH ×2 (09:31→19:51)
[2017-11-18] MEDS: guaiFENesin ER TAB 600 MG PO SCH ×2 (09:31→19:51)
[2017-11-18] MEDS: Carbidopa/Levodop 25/100 MG TAB(*) PO SCH ×4 (09:31→21:26)
[2017-11-18] MEDS: Acetaminophen TAB* 325 MG PO PRN ×2 (09:41→21:27)
[2017-11-18] MEDS: Lubiprostone 24 MCG CAP (NF) PO SCH ×2 (09:46→20:00)
--- NOTE | 2017-11-18 09:51 | PN ---
Subjective Date of Service: 11/18/17 Interval History: Per RN, patient with 102.2 fever. Tylenol provided. Azithromycin started. Blood culture and wound culture ordered. Objective Active Medications: Acetaminophen (Tylenol Tab*) 650 mg PO Q6H PRN PRN Reason: FEVER/PAIN Last Admin: 11/18/17 09:41 Dose: 650 mg Albuterol (Ventolin 2.5 Mg/3 Ml Neb.Solange*) 2.5 mg INH Q6H PRN PRN Reason: SOB/WHEEZING Aspirin (Aspirin Tab*) 325 mg PO DAILY [facility] Last Admin: 11/18/17 09:31 Dose: 325 mg Atorvastatin Calcium (Lipitor*) 20 mg PO BEDTIME [facility] Benzonatate (Tessalon Cap*) 100 mg PO BID PRN PRN Reason: COUGH Carbidopa/Levodopa (Sinemet 25/100 Tab(*)) 1 tab PO QID [facility] Last Admin: 11/18/17 09:31 Dose: 1 tab Diazepam (Valium Tab(*)) 10 mg PO TID PRN PRN Reason: ANXIETY Guaifenesin (Mucinex*) 600 mg PO BID [facility] Last Admin: 11/18/17 09:31 Dose: 600 mg Heparin Sodium (Porcine) (Heparin Vial(*)) 5,000 units SUBCUT Q8HR [facility] Sodium Chloride (Ns 0.9% 1000 Ml*) 1,000 mls @ 75 mls/hr IV PER RATE [facility] Last Admin: 11/18/17 02:35 Dose: 75 mls/hr Azithromycin 500 mg/ Sodium (Chloride) 250 mls @ 250 mls/hr IVPB Q24H [facility] Last Admin: 11/18/17 09:30 Dose: 250 mls/hr Lubiprostone (Amitiza (Nf)) 24 mcg PO BID [facility] Last Admin: 11/18/17 09:46 Dose: Not Given Meclizine HCl (Antivert Tab*) 12.5 mg PO TID PRN PRN Reason: DIZZINESS Melatonin (Melatonin (Nf)) 3 mg PO BEDTIME PRN; Protocol PRN Reason: Sleep Metoprolol Tartrate (Lopressor Tab*) 25 mg PO BID [facility] Last Admin: 11/18/17 09:31 Dose: 25 mg Mometasone Furoate/Formoterol Fumar (Dulera 100/5 Mdi*) 2 puff INH BID [facility] Last Admin: 11/18/17 08:39 Dose: Not Given Omeprazole (Prilosec Cap*) 20 mg PO DAILY@0600 [facility] Last Admin: 11/18/17 05:07 Dose: 20 mg Ondansetron HCl (Zofran Inj*) 4 mg IV Q6H PRN PRN Reason: NAUSEA Oxycodone/Acetaminophen (Percocet 5/325 Tab*) 1 tab PO Q4H PRN PRN Reason: PAIN Last Admin: 11/18/17 09:41 Dose: 1 tab Trazodone HCl (Desyrel Tab*) 50 mg PO BEDTIME [facility] Vital Signs - 8 hr 11/18/17 11/18/17 11/18/17 02:00 02:10 02:45 Temperature 98.0 F 98.0 F Pulse Rate 91 87 Respiratory 19 16 18 Rate Blood Pressure 107/86 107/86 (mmHg) O2 Sat by Pulse 91 92 Oximetry 11/18/17 11/18/17 11/18/17 03:09 03:45 04:48 Temperature 98.3 F 98.7 F Pulse Rate 76 72 Respiratory 18 16 17 Rate Blood Pressure 117/52 114/55 (mmHg) O2 Sat by Pulse 96 98 Oximetry 11/18/17 11/18/17 11/18/17 07:39 07:42 09:41 Temperature 99.5 F Pulse Rate 111 Respiratory 20 18 Rate Blood Pressure 132/53 (mmHg) O2 Sat by Pulse 85 94 Oximetry 11/18/17 09:44 Temperature 102.2 F Pulse Rate Respiratory Rate Blood Pressure (mmHg) O2 Sat by Pulse Oximetry Oxygen Devices in Use Now: Nasal Cannula Result Diagrams: 11/18/17 08:20 11/17/17 21:20 Assess/Plan/Problems-Billing Assessment:
[2017-11-18] MEDS ORDERED: NS 0.9% 500 ML* 500 ML IV ONE (11:31)
[2017-11-18] MEDS: Ondansetron INJ* 2 MG/ML VIAL IV PRN ×2 (15:00→21:27)
--- NOTE | 2017-11-18 18:12 | HP ---
ADMISSION HISTORY AND PHYSICAL: DATE OF ADMISSION: 11/17/17 PRIMARY CARE PROVIDER: Dr. Wetzel. ATTENDING PHYSICIAN: Marina Padilla MD * (DICTATED BY BASILIA REEDER NP) HISTORY OF PRESENT ILLNESS: This is a pleasant 72-year-old male patient with a history significant for Parkinson's disease, hypertension, hyperlipidemia, fibromyalgia, vertigo, history of [place], TIA, chronic back pain and coronary artery disease, presents in the emergency department with his this past evening with a complaint of advancing general weakness and inability to ambulate with gait disturbance and also reported fever at home. Per the ER note , it looks like his is stating that the patient has had decreased appetite and increase in bed sores secondary to difficulty ambulating. The patient states he feels febrile and has pain all over; however, he does not have a temperature this morning. PAST MEDICAL HISTORY: As above. MEDICATIONS: At home include: 1. Meclizine 12.5 mg 3 times a day as needed. 2. Oxycodone/acetaminophen 5/325 mg 1 tablet q.4 hours as needed for pain. 3. Simvastatin 20 mg daily. 4. Nitroglycerin 0.4 mg as needed. 5. Multivitamin 1 tablet daily. 6. Valium 10 mg 3 times a day as needed. 7. Trazodone 50 mg at bedtime. 8. Metoprolol tartrate 25 mg b.i.d. 9. Amitiza 24 mcg 2 times daily. 10. Aspirin 325 mg daily. 11. Sinemet 25/100 one tablet 4 times a day. ALLERGIES: The patient has no known drug allergies. FAMILY HISTORY: Mother is . No clear etiology of her demise. Father with CVA and colon cancer. SOCIAL HISTORY: The patient is a former smoker. He denies drinking any alcohol. No illicit drug use. He is . He lives at home with his . His surrogate decision maker is his . REVIEW OF SYSTEMS: A 10-point review of systems is negative except as noted in HPI. The patient does have a cough, nonproductive. PHYSICAL EXAMINATION GENERAL: The patient is awake and alert, mild amount of anxiety noted. VITAL SIGNS: Currently, blood pressure 114/55, heart rate 72, respiratory rate 16, satting at 98% on room air, temperature is 98.7. HEENT: The patient is atraumatic and normocephalic. PERRLA, nonicteric sclerae. NECK: Supple, nontender. No JVD noted. No carotid bruit auscultated. LUNGS: Scattered rhonchi at the bases. No wheezing or rales noted. CARDIOVASCULAR: S1 and S2 were present. No murmurs, gallops, or rubs. ABDOMEN: Soft, nontender, and nondistended. Positive bowel sounds in all 4 quadrants. Hypoactive in the left lower quadrant primarily. MUSCULOSKELETAL: There is no clubbing and no cyanosis. No edema noted. He has +2 distal pulses palpable. NEUROLOGIC: He is alert and oriented x3. He has significant Parkinsonian tremors particularly in the upper extremities. Focal neuro exam beyond his Parkinsonian tremors is negative. PSYCHIATRIC: He is cooperative, although anxious and appropriate. DIAGNOSTIC STUDIES/LAB DATA: Today; WBCs 8.6, RBCs 4.39, hemoglobin 13.8, hematocrit 41. Sodium 136, potassium 3.7, chloride 103, CO2 25, BUN 15, creatinine 0.69, GFR is 112.4. Glucose is 99, lactic acid 0.8, calcium 8.7, protein 6.1, albumin is 3.5, AST 10, ALT 8, alk phos 43. Troponin is negative at 0.00. Chest x- ray reveals as read by the radiologist stigmata of obstructing lung disease, linear atelectasis at the lung bases and no compelling evidence for pneumonia. IMPRESSION: This is a 72-year-old male patient who presents to the emergency department with advancing weakness, questionable low-grade fever at home, decubitus ulcers and inability to ambulate, also having increasing breakthrough pain secondary to his chronic pain. PLAN: The patient has been admitted to observation. Diagnoses: 1. Parkinson's disease. 2. General weakness. 3. Low-grade fever. 4. Questionable COPD with cough, possible exacerbation. 5. Decubitus ulcers. 6. History of coronary artery disease. 7. History of hypertension. 8. History of hyperlipidemia. 9. History of fibromyalgia and chronic pain. 10. Vertigo. 11. History of TIA. So far his plan may include placement in a secondary facility. The patient I think is having difficulty at home. This will be discussed with his regarding his care at home. We have also consulted Dr. Cynthia Locke for his Parkinson's disease. He has not been to see a neurologist for some time. We are looking for medical optimization of his Parkinsonian tremors and other symptoms to aid in some relief of his symptoms. We will cover him at this point for COPD with albuterol nebs. We also placed him on azithromycin. He did receive Zosyn and vanco in the ED. However, he still remains afebrile. Blood cultures were taken, nothing is coming back as yet. He does not have any leukocytosis or fever at this time. We will also give him Tessalon Perles for his cough, Mucinex for his congestion. I feel that maybe some of this is due to the fact that he is not able to mobilize his secretions secondary to his advancing Parkinson's weakness. Incentive spirometry will also be ordered while awake. For his decubitus ulcers, I put in for a wound culture and wound care consult to assess if there is any additional infection growing. He will stay on his regularly scheduled medications from home. We will follow his labs on a daily basis and look to case management for input on safe discharge whether that is to home with additional services versus an inpatient facility. The rest of the patient's course will be determined by further diagnostics, laboratories, and any other input from other providers is warranted during this admission. I have spent in excess of 60 minutes [id number] with the patient. We will also be discussing this plan with his . So, plan has been discussed with Dr. Marina Padilla, the attending for this case. BASILIA REEDER NP [id number]/[facility] #: [id number] NANI
[2017-11-18] MEDS: Atorvastatin* 20 MG TAB PO SCH (19:51)
[2017-11-18] MEDS: traZODone TAB* 50 MG TAB PO SCH (19:51)
--- NOTE | 2017-11-19 01:10 | CONS ---
NEUROLOGY CONSULTATION: DATE OF CONSULT: 11/18/17 LOCATION: The patient is in room 448. REQUESTING PROVIDER: Taylor Carnes NP REASON FOR CONSULT: Parkinson's disease. HISTORY OF PRESENT ILLNESS: Rodney Ruiz is a 72-year-old man with the history of Parkinson's disease, on carbidopa/levodopa as well as coronary artery disease ; chronic low back pain and chronic nausea associated with poor appetite, occasional vomiting and easy fatigability who came in to emergency room yesterday because of increased generalized weakness. His states that he has lost 40 pounds over the past 6 months related to his poor appetite. His mobility has significantly decreased such that he spends most of his time in his lift chair and ambulates only occasionally around his home with a cane or with the assistance of his . He was having chills prior to admission, though no documented fever at home. The emergency department physician apparently found his temperature to be 101 with low oxygen saturation. This morning, again he spiked a fever to 102.2. With this, his tremors have appeared worse and I was asked to consult to determine whether any changes can be made in his Parkinson's medication. The patient is followed for his Parkinson's disease at the [facility] by Dr. Estephania Scott as well as her nurse practitioner, Maci Ugalde. His reports that the last time he was seen was probably a bit over a year ago because they were unable to make it up to [place] in the cold winter months. He has been on many different Parkinson's medications in the past as well as combinations of medications including Rytary, Requip, pramipexole, amantadine, selegiline. All of these either lost their effectiveness or were not tolerated. Rytary was apparently effective for him for a period of time, but then became less effective and they could not see the point in paying the extra money for this medication, and so he switched back to immediate release carbidopa/levodopa a year or so ago. He is on 25/100 mg 1 tablet 4 times daily which he takes at breakfast, lunch, dinner, and at bedtime. He states that he is very sensitive to any changes in the medication and even a quarter tablet more can cause increase in dyskinesias. He notices that his tremors are worse when he is anxious and he has used p.r.n. diazepam for the past 2 to 3 years for his anxiety. He generally uses this 3 times per week, 1 to 2 times a day when he does use it. PAST MEDICAL HISTORY: 1. Parkinson's disease. 2. Coronary artery disease, status post myocardial infarction and stenting. 3. Hypertension. 4. Hyperlipidemia. 5. Chronic back pain, status post neurostimulator implants, which are no longer functioning. 6. Urolithiasis. 7. Fibromyalgia. 8. TIA. 9. Vertigo. 10. Constipation predominant irritable bowel syndrome. PAST SURGICAL HISTORY: Spinal stimulator implant/removal x2, left meniscal repair, right rotator cuff repair, bilateral carpal tunnel release. HOME MEDICATIONS: 1. Aspirin 325 mg daily. 2. Carbidopa/levodopa 25/100 mg 1 tablet 4 times daily. 3. Metoprolol 25 mg twice daily. 4. Nitroglycerin as needed. 5. Simvastatin 40 mg at bedtime. 6. Diazepam 10 mg p.o. t.i.d. p.r.n. 7. Meclizine 25 mg as needed. 8. Percocet 5/325 mg q.4 hours p.r.n. 9. Multivitamin daily. 10. Trazodone 50 mg at bedtime. 11. Amitiza 25 mcg twice daily. ALLERGIES: CONTRAST DYE. FAMILY HISTORY: His mother had Alzheimer's disease and father had a stroke and colon cancer. SOCIAL HISTORY: He quit smoking about 30 years ago. No alcohol or recreational drug use. He relates that he is a [place] and was exposed to Agent [place], which they feel is the cause of his Parkinson's disease. He lives with his . REVIEW OF SYSTEMS: As per HPI. In addition, he reports that his feet will sometimes shuffle when he bends over at the waist to pick something up off the floor. In addition, he sometimes stumbles backwards all of a sudden as though he has been pulled backwards. He has not fallen. PHYSICAL EXAMINATION: Vital Signs: Temperature last measured at 11 o'clock this morning was 101.3, blood pressure 118/48 with a heart rate of 71, and oxygen saturation of 95% on 3 L. On general examination, he is in no acute distress, but his skin is warm to touch. His heart is in a regular rate and rhythm. His lungs have diminished breath sounds bilaterally and seem to have some rhonchi as well. His arm and upper and lower extremity skin is intact, but he reportedly has a stage 2 pressure ulcer on his left gluteal region. On neurologic exam, he is fully awake, alert, and oriented. His speech is not particularly hypophonic. He does have some festinating speech and it is mildly unclear at times. He has decreased blink rate. Pupils were equal, round, and reactive from 2 to 3 mm bilaterally. Versions are full without nystagmus. Facial musculature is full strength. Sensation is intact bilaterally to light touch. Hearing is intact to finger rub. The palate elevates symmetrically and the tongue is midline. On motor examination, there is cogwheel rigidity in the right greater than left upper extremity. He has occasional dyskinesias in the left arm. He has spasticity in his lower extremities and his feet are plantar flexed with some limited range of motion at the ankle. He has a resting tremor of the right greater than left upper extremity. Finger taps and open-close hand are impaired, right greater than left, but impaired bilaterally. He has full strength in his shoulder abduction as well as elbow flexion and extension, though his medical insurance verifier is weak on the left and adequate on the right. He was not really able to lift either leg up off the bed. Reflexes were 2+ in the upper extremities, 2+ at the knees. There is no ankle clonus. His toes were mute. Sensation was intact to light touch in the upper and lower extremities. There was no ataxia on [id number] testing. LABORATORY DATA/DIAGNOSTIC STUDIES: His CBC shows a white count of 6.6, hematocrit of 40, hemoglobin of 13.6, and normal platelet count of 156. His chemistry panel shows a slightly elevated BUN to creatinine ratio of 21.7. Otherwise, he is relatively unremarkable aside from a low total protein of 6.1. His urinalysis showed 1+ ketones, 2+ blood and 1+ rbc's with trace wbc's, and no nitrites or leukocyte esterase. His flu swab was negative. His chest x-ray showed stigmata of obstructive lung disease, but no compelling evidence for pneumonia. IMPRESSION: Rodney Ruiz is a 72-year-old man with advanced Parkinson's disease who is admitted with an overall increase in his weakness, but with a poor functional status at home at baseline. He has been found to have a fever, the source of which is unclear at this time. I would like to get some records from [place] to confirm when he was last seen and what his exam looked like at that time, though my suspicion is that he is not that far off his baseline in terms of his parkinsonism at this point. His Parkinson's symptoms will be worse in the setting of infection and so the hospitalist team should continue to try to identify and treat the source of that. Given the numerous trials of other Parkinson's medications that he has been on as well as his apparent sensitivity to medications, I do not feel that it will be of benefit to attempt to change his dose of carbidopa/levodopa here in the hospital at this time. He and his are in agreement with this. I also mentioned that he has very stiff legs and some of his walking dysfunction could be related to cervical spinal stenosis. He cannot have an MRI scan though he could have a CT scan to further investigate this; however, at this point, I doubt any intervention would be indicated or desired, and so the patient does not want this testing to be done and I agree with this. I spoke with them that as an outpatient, it would likely benefit him to be seen by Kyle Ivory from physical therapy department as he works with most of our patients with Parkinson's disease and they often have very good functional gains. Thank you for this consultation. [id number]/[facility] #: [id number] NANI
[2017-11-19] MEDS: Ibuprofen TAB* 400 MG PO PRN ×2 (01:55→11:58)
[2017-11-19] MEDS: NS 0.9% 1000 ML* 1,000 ML IV SCH ×2 (01:56→17:53)
[2017-11-19] MEDS: Acetaminophen TAB* 325 MG PO PRN ×2 (03:25→20:37)
[2017-11-19] MEDS: Omeprazole CAP* 20 MG PO SCH (04:52)
[2017-11-19] MEDS: Heparin VIAL(*) 5000 UNITS/ML VIAL (FIVE THOUSAND) SUBCUT SCH ×3 (04:52→20:44)
[2017-11-19] MEDS: Carbidopa/Levodop 25/100 MG TAB(*) PO SCH ×4 (08:39→20:37)
[2017-11-19] MEDS: Aspirin TAB* 325 MG PO SCH (08:39)
[2017-11-19] MEDS: Azithromycin IV(*) 500 MG in NS 0.9% 250 ML* 250 ML IVPB SCH (08:39)
[2017-11-19] MEDS: guaiFENesin ER TAB 600 MG PO SCH ×2 (08:39→20:37)
[2017-11-19] MEDS: Metoprolol Tartrate TAB* 25 MG PO SCH ×2 (08:39→20:37)
[2017-11-19] MEDS: Lubiprostone 24 MCG CAP (NF) PO SCH ×2 (08:40→20:44)
[2017-11-19] MEDS: Mometasone/Formoter 100/5 MDI INH SCH ×2 (08:58→20:53)
--- NOTE | 2017-11-19 10:30 | PN ---
Subjective Date of Service: 11/19/17 Interval History: Patient seen and examined. OOB to chair, tremors very pronounced. Fevers overnight, denies chills or rigors. No headache, some fatigue. Pain at baseline. Still with productive cough. Objective Active Medications: Acetaminophen (Tylenol Tab*) 650 mg PO Q6H PRN PRN Reason: FEVER/PAIN Last Admin: 11/19/17 03:25 Dose: 650 mg Albuterol (Ventolin 2.5 Mg/3 Ml Neb.Solange*) 2.5 mg INH Q6H PRN PRN Reason: SOB/WHEEZING Aspirin (Aspirin Tab*) 325 mg PO DAILY [facility] Last Admin: 11/19/17 08:39 Dose: 325 mg Atorvastatin Calcium (Lipitor*) 20 mg PO BEDTIME [facility] Last Admin: 11/18/17 19:51 Dose: 20 mg Benzonatate (Tessalon Cap*) 100 mg PO BID PRN PRN Reason: COUGH Last Admin: 11/18/17 23:50 Dose: 100 mg Carbidopa/Levodopa (Sinemet 25/100 Tab(*)) 1 tab PO QID [facility] Last Admin: 11/19/17 08:39 Dose: 1 tab Diazepam (Valium Tab(*)) 10 mg PO TID PRN PRN Reason: ANXIETY Guaifenesin (Mucinex*) 600 mg PO BID [facility] Last Admin: 11/19/17 08:39 Dose: 600 mg Heparin Sodium (Porcine) (Heparin Vial(*)) 5,000 units SUBCUT Q8HR [facility] Last Admin: 11/19/17 04:52 Dose: 5,000 units Sodium Chloride (Ns 0.9% 1000 Ml*) 1,000 mls @ 75 mls/hr IV PER RATE [facility] Last Admin: 11/19/17 01:56 Dose: 75 mls/hr Azithromycin 500 mg/ Sodium (Chloride) 250 mls @ 250 mls/hr IVPB Q24H [facility] Last Admin: 11/19/17 08:39 Dose: 250 mls/hr Ibuprofen (Motrin Tab*) 400 mg PO Q6H PRN PRN Reason: fever/pain Last Admin: 11/19/17 01:55 Dose: 400 mg Lubiprostone (Amitiza (Nf)) 24 mcg PO BID [facility] Last Admin: 11/19/17 08:40 Dose: Not Given Meclizine HCl (Antivert Tab*) 12.5 mg PO TID PRN PRN Reason: DIZZINESS Melatonin (Melatonin (Nf)) 3 mg PO BEDTIME PRN; Protocol PRN Reason: Sleep Metoprolol Tartrate (Lopressor Tab*) 25 mg PO BID [facility] Last Admin: 11/19/17 08:39 Dose: 25 mg Mometasone Furoate/Formoterol Fumar (Dulera 100/5 Mdi*) 2 puff INH BID [facility] Last Admin: 11/19/17 08:58 Dose: 2 puff Omeprazole (Prilosec Cap*) 20 mg PO DAILY@0600 [facility] Last Admin: 11/19/17 04:52 Dose: 20 mg Ondansetron HCl (Zofran Inj*) 4 mg IV Q6H PRN PRN Reason: NAUSEA Last Admin: 11/18/17 21:27 Dose: 4 mg Oxycodone/Acetaminophen (Percocet 5/325 Tab*) 1 tab PO Q4H PRN PRN Reason: PAIN Last Admin: 11/18/17 19:51 Dose: 1 tab Trazodone HCl (Desyrel Tab*) 50 mg PO BEDTIME [facility] Last Admin: 11/18/17 19:51 Dose: 50 mg Vital Signs - 8 hr 11/19/17 11/19/17 11/19/17 03:07 04:57 07:41 Temperature 101.0 F 98.7 F 97.8 F Pulse Rate 86 90 Respiratory 20 18 Rate Blood Pressure 120/56 116/56 (mmHg) O2 Sat by Pulse 91 93 Oximetry 11/19/17 08:00 Temperature Pulse Rate Respiratory 18 Rate Blood Pressure (mmHg) O2 Sat by Pulse Oximetry Oxygen Devices in Use Now: Nasal Cannula Appearance: Alert, NAD Ears/Nose/Mouth/Throat: Mucous Membranes Moist Neck: Trachea Midline Respiratory: Symmetrical Chest Expansion and Respiratory Effort, - - bilateral wheeze with scattered rhonchi, no rales Abdominal: NL Sounds; No Tenderness; No Distention Extremities: No Edema, No Clubbing, Cyanosis Neurological: Alert and Oriented x 3, - - general weakness Nutrition: Taking PO's Result Diagrams: 11/18/17 08:20 11/17/17 21:20 Microbiology and Other Data: Microbiology 11/18/17 11:30 Gram Stain - Final Buttock Assess/Plan/Problems-Billing Assessment: This is a 72 year old male patient with hx osignificant for PD with advancing weakness, presents to ER with c/o subjective fever, cough and malaise, likely viral illness and COPD exacerbation. - Patient Problems (1) Parkinson disease Code(s): G20 - PARKINSON'S DISEASE SNOMED Code(s): 74359395 Comment: - Neurology consult appreciated - No changes in medical management at this time - Continue supportive care and SW/CM follow up (2) Cough Code(s): R05 - COUGH SNOMED Code(s): 99695856 Comment: - Send sputum for C&S - Mucinex and tessalon (3) Fever Code(s): R50.9 - FEVER, UNSPECIFIED SNOMED Code(s): 671041082 Comment: - Tylenol PRN - Fluids - Follow blood cultures - May be viral etiology and COPD? - Continue azithromycin (4) Weakness Code(s): R53.1 - WEAKNESS SNOMED Code(s): 20141083 Comment: - 2/2 parkinson's - PT consult - Home DME at [place] (5) Chronic pain Code(s): G89.29 - OTHER CHRONIC PAIN SNOMED Code(s): 60291797 Comment: - Contineu percocet PRN with amitiza (6) Sacral decubitus ulcer Comment: - Wound care consult appreciated - Wound C&S sent, does not appear infected - Local wound care and off-loading (7) COPD exacerbation Code(s): J44.1 - CHRONIC OBSTRUCTIVE PULMONARY DISEASE W (ACUTE) EXACERBATION SNOMED Code(s): 120133648 Comment: - CXR as above - Continue nebs, azithromycin, mucinex, tessolon, O2 (8) CAD (coronary artery disease) Code(s): I25.10 - ATHSCL HEART DISEASE OF [place] CORONARY ARTERY W/O ANG PCTRS SNOMED Code(s): 63638304 Comment: - Continue Aspirin, Metoprolol and statin (9) History of TIA (transient ischemic attack) Comment: - Continue ASA and statin (10) Full code status Current Visit: No Status: Acute Code(s): Z78.9 - OTHER SPECIFIED HEALTH STATUS SNOMED Code(s): 198490912 (11) DVT prophylaxis Code(s): BZO1754 - SNOMED Code(s): 734645351 Comment: - HSQ Status and Disposition: Remain inpatient. Dispo planning to home when stable
[2017-11-19] MEDS: oxyCODONE/Acetamin 5/325 MG* TAB PO PRN ×2 (11:58→20:38)
[2017-11-19] MEDS: Atorvastatin* 20 MG TAB PO SCH (20:37)
[2017-11-19] MEDS: traZODone TAB* 50 MG TAB PO SCH (20:37)
[2017-11-20] MEDS: Heparin VIAL(*) 5000 UNITS/ML VIAL (FIVE THOUSAND) SUBCUT SCH ×3 (04:58→21:19)
[2017-11-20] MEDS: Omeprazole CAP* 20 MG PO SCH (04:58)
[2017-11-20] MEDS: NS 0.9% 1000 ML* 1,000 ML IV SCH ×2 (05:37→20:18)
[2017-11-20] MEDS: Mometasone/Formoter 100/5 MDI INH SCH ×2 (08:24→20:25)
[2017-11-20] MEDS: Lubiprostone 24 MCG CAP (NF) PO SCH (08:59)
[2017-11-20] MEDS: guaiFENesin ER TAB 600 MG PO SCH ×2 (09:06→20:17)
[2017-11-20] MEDS: oxyCODONE/Acetamin 5/325 MG* TAB PO PRN ×3 (09:06→20:16)
[2017-11-20] MEDS: Aspirin TAB* 325 MG PO SCH (09:06)
[2017-11-20] MEDS: Carbidopa/Levodop 25/100 MG TAB(*) PO SCH ×4 (09:06→20:17)
[2017-11-20] MEDS: Metoprolol Tartrate TAB* 25 MG PO SCH ×2 (09:06→20:17)
[2017-11-20] MEDS: Azithromycin IV(*) 500 MG in NS 0.9% 250 ML* 250 ML IVPB SCH (09:32)
--- NOTE | 2017-11-20 12:45 | PN ---
Subjective Date of Service: 11/20/17 Interval History: Patient seen and examined. No fevers overnight, did say he had the sweats though. States his breathing is improving. Mild cough, no dyspnea, some sputum. Denies chest pain, no n/v. Objective Active Medications: Acetaminophen (Tylenol Tab*) 650 mg PO Q6H PRN PRN Reason: FEVER/PAIN Last Admin: 11/19/17 20:37 Dose: 650 mg Albuterol (Ventolin 2.5 Mg/3 Ml Neb.Solange*) 2.5 mg INH Q6H PRN PRN Reason: SOB/WHEEZING Aspirin (Aspirin Tab*) 325 mg PO DAILY [facility] Last Admin: 11/20/17 09:06 Dose: 325 mg Atorvastatin Calcium (Lipitor*) 20 mg PO BEDTIME [facility] Last Admin: 11/19/17 20:37 Dose: 20 mg Benzonatate (Tessalon Cap*) 100 mg PO BID PRN PRN Reason: COUGH Last Admin: 11/18/17 23:50 Dose: 100 mg Carbidopa/Levodopa (Sinemet 25/100 Tab(*)) 1 tab PO QID [facility] Last Admin: 11/20/17 09:06 Dose: 1 tab Diazepam (Valium Tab(*)) 10 mg PO TID PRN PRN Reason: ANXIETY Guaifenesin (Mucinex*) 600 mg PO BID [facility] Last Admin: 11/20/17 09:06 Dose: 600 mg Heparin Sodium (Porcine) (Heparin Vial(*)) 5,000 units SUBCUT Q8HR [facility] Last Admin: 11/20/17 04:58 Dose: 5,000 units Sodium Chloride (Ns 0.9% 1000 Ml*) 1,000 mls @ 75 mls/hr IV PER RATE [facility] Last Admin: 11/20/17 05:37 Dose: 75 mls/hr Azithromycin 500 mg/ Sodium (Chloride) 250 mls @ 250 mls/hr IVPB Q24H [facility] Last Admin: 11/20/17 09:32 Dose: 250 mls/hr Ibuprofen (Motrin Tab*) 400 mg PO Q6H PRN PRN Reason: fever/pain Last Admin: 11/19/17 11:58 Dose: 400 mg Lubiprostone (Amitiza (Nf)) 24 mcg PO BID [facility] Meclizine HCl (Antivert Tab*) 12.5 mg PO TID PRN PRN Reason: DIZZINESS Melatonin (Melatonin (Nf)) 3 mg PO BEDTIME PRN; Protocol PRN Reason: Sleep Metoprolol Tartrate (Lopressor Tab*) 25 mg PO BID [facility] Last Admin: 11/20/17 09:06 Dose: 25 mg Mometasone Furoate/Formoterol Fumar (Dulera 100/5 Mdi*) 2 puff INH BID [facility] Last Admin: 11/20/17 08:24 Dose: 2 puff Omeprazole (Prilosec Cap*) 20 mg PO DAILY@0600 [facility] Last Admin: 11/20/17 04:58 Dose: 20 mg Ondansetron HCl (Zofran Inj*) 4 mg IV Q6H PRN PRN Reason: NAUSEA Last Admin: 11/18/17 21:27 Dose: 4 mg Oxycodone/Acetaminophen (Percocet 5/325 Tab*) 1 tab PO Q4H PRN PRN Reason: PAIN Last Admin: 11/20/17 09:06 Dose: 1 tab Trazodone HCl (Desyrel Tab*) 50 mg PO BEDTIME [facility] Last Admin: 11/19/17 20:37 Dose: 50 mg Vital Signs - 8 hr 11/20/17 11/20/17 11/20/17 07:41 07:48 08:26 Temperature 98.3 F Pulse Rate 56 54 Respiratory 18 18 15 Rate Blood Pressure 139/53 (mmHg) O2 Sat by Pulse 94 93 Oximetry 11/20/17 11/20/17 09:06 11:14 Temperature Pulse Rate Respiratory 18 16 Rate Blood Pressure (mmHg) O2 Sat by Pulse Oximetry Oxygen Devices in Use Now: Nasal Cannula Appearance: Alert, NAD Ears/Nose/Mouth/Throat: Clear Oropharnyx Neck: Trachea Midline Respiratory: Symmetrical Chest Expansion and Respiratory Effort, - - improved wheeze, no rales or rhonchi noted Cardiovascular: NL Sounds; No Murmurs; No JVD, RRR Abdominal: NL Sounds; No Tenderness; No Distention Extremities: No Edema Neurological: Alert and Oriented x 3, - - PD tremors at baseline Nutrition: Taking PO's Result Diagrams: 11/18/17 08:20 11/17/17 21:20 Microbiology and Other Data: Microbiology 11/18/17 11:30 Gram Stain - Final Buttock Assess/Plan/Problems-Billing Assessment: This is a 72 year old male patient with hx osignificant for PD with advancing weakness, presents to ER with c/o subjective fever, cough and malaise, likely viral illness and COPD exacerbation, clinically improving today. - Patient Problems (1) Parkinson disease Code(s): G20 - PARKINSON'S DISEASE SNOMED Code(s): 35166755 Comment: - Neurology consult appreciated - No changes in medical management at this time - Continue supportive care and SW/CM follow up (2) Cough Code(s): R05 - COUGH SNOMED Code(s): 78264837 Comment: - Sputum culture negative - Continue mucinex and tessalon (3) Fever Code(s): R50.9 - FEVER, UNSPECIFIED SNOMED Code(s): 639832676 Comment: - Tmax 99 overnight, improving - Tylenol PRN - Will DC IVF - Blood cultures NTD - Continue azithromycin (4) Weakness Code(s): R53.1 - WEAKNESS SNOMED Code(s): 91440917 Comment: - 2/2 parkinson's - PT/OT consult - Home DME at [place] (5) Chronic pain Code(s): G89.29 - OTHER CHRONIC PAIN SNOMED Code(s): 81137301 Comment: - Continue percocet PRN with amitiza (6) Sacral decubitus ulcer Comment: - Wound care consult appreciated - Culture negative - Local wound care and off-loading (7) COPD exacerbation Code(s): J44.1 - CHRONIC OBSTRUCTIVE PULMONARY DISEASE W (ACUTE) EXACERBATION SNOMED Code(s): 923690225 Comment: - CXR as above - Continue nebs, azithromycin day 4 of 5, mucinex, tessolon, O2 (8) CAD (coronary artery disease) Code(s): I25.10 - ATHSCL HEART DISEASE OF [place] CORONARY ARTERY W/O ANG PCTRS SNOMED Code(s): 73142042 Comment: - Continue Aspirin, Metoprolol and statin (9) History of TIA (transient ischemic attack) Comment: - Continue ASA and statin (10) Full code status Current Visit: No Status: Acute Code(s): Z78.9 - OTHER SPECIFIED HEALTH STATUS SNOMED Code(s): 350696287 (11) DVT prophylaxis Code(s): OYN4839 - SNOMED Code(s): 127114573 Comment: - HSQ Status and Disposition: Remain inpatient. Dispo planning to home Thursday when DME is delivered. Counseling and/or Coordination of Care Minutes: coordinated with patient, his and staff
[2017-11-20] MEDS: Acetaminophen TAB* 325 MG PO PRN (16:36)
[2017-11-20] MEDS: traZODone TAB* 50 MG TAB PO SCH (20:17)
[2017-11-20] MEDS: CMCS:Lubiprostone 24 MCG CAP (NF) PO SCH (20:17)
[2017-11-20] MEDS: Atorvastatin* 20 MG TAB PO SCH (20:17)
[2017-11-21] MEDS: oxyCODONE/Acetamin 5/325 MG* TAB PO PRN ×3 (04:12→17:09)
[2017-11-21] MEDS: Heparin VIAL(*) 5000 UNITS/ML VIAL (FIVE THOUSAND) SUBCUT SCH ×3 (05:42→21:32)
[2017-11-21] MEDS: Omeprazole CAP* 20 MG PO SCH (05:42)
[2017-11-21 06:12] LABS: ABS Basophils 0 10^3/ul (0-0.2); ABS Eosinophils 0.1 10^3/ul (0-0.6); ABS Lymphocytes 1.4 10^3/ul (1.0-4.8); ABS Monocytes 0.5 10^3/ul (0-0.8); ABS Neutrophils 3.3 10^3/ul (1.5-7.7); ABS Nucleated RBC 0 10^3/ul; Eosinophil % 1.9 % (0-6); Hematocrit 35 % (42-52); Hemoglobin 12.1 g/dl (14.0-18.0); Lymphocyte % 27.1 % (25-47); Mean Corpuscular HGB Conc 34 g/dl (31-36); Mean Corpuscular Hemoglobin 31 pg (27-31); Mean Corpuscular Volume 92 fL (80-94); Mean Platelet Volume 8 um3 (7.4-10.4); Nucleated Red Blood Cells % 0; Platelet Count 170 10^3/ul (150-450); Red Blood Count 3.87 10^6/ul (4.0-5.4); Red Cell Distribution Width 14 % (10.5-15); White Blood Count 5.3 10^3/ul (3.5-10.8)
[2017-11-21 06:25] LABS: EGFR Non-African American 132.1 (>60)
[2017-11-21] MEDS: Mometasone/Formoter 100/5 MDI INH SCH ×2 (07:45→20:10)
[2017-11-21] MEDS ORDERED: NS 0.9% 250 ML* 250 ML ONE (09:14)
[2017-11-21] MEDS: Azithromycin IV(*) 500 MG in NS 0.9% 250 ML* 250 ML IVPB SCH (09:19)
[2017-11-21] MEDS: NS 0.9% 1000 ML* 1,000 ML IV SCH (09:22)
[2017-11-21] MEDS: guaiFENesin ER TAB 600 MG PO SCH ×2 (09:23→21:32)
[2017-11-21] MEDS: CMCS:Lubiprostone 24 MCG CAP (NF) PO SCH ×2 (09:23→21:32)
[2017-11-21] MEDS: Carbidopa/Levodop 25/100 MG TAB(*) PO SCH ×4 (09:23→21:32)
[2017-11-21] MEDS: Aspirin TAB* 325 MG PO SCH (09:23)
[2017-11-21] MEDS: Metoprolol Tartrate TAB* 25 MG PO SCH ×2 (09:23→21:32)
--- NOTE | 2017-11-21 09:54 | PN ---
Subjective Date of Service: 11/21/17 Interval History: Patient reports he didn't sleep well last night due to "pain all over in my joints". He denies any fever or chills. Continues to have a cough with sputum production. Reports he feels a little better today reporting improved appetite. Objective Active Medications: Acetaminophen (Tylenol Tab*) 650 mg PO Q6H PRN PRN Reason: FEVER/PAIN Last Admin: 11/20/17 16:36 Dose: 650 mg Albuterol (Ventolin 2.5 Mg/3 Ml Neb.Solange*) 2.5 mg INH Q6H PRN PRN Reason: SOB/WHEEZING Aspirin (Aspirin Tab*) 325 mg PO DAILY [facility] Last Admin: 11/21/17 09:23 Dose: 325 mg Atorvastatin Calcium (Lipitor*) 20 mg PO BEDTIME [facility] Last Admin: 11/20/17 20:17 Dose: 20 mg Benzonatate (Tessalon Cap*) 100 mg PO BID PRN PRN Reason: COUGH Last Admin: 11/18/17 23:50 Dose: 100 mg Carbidopa/Levodopa (Sinemet 25/100 Tab(*)) 1 tab PO QID [facility] Last Admin: 11/21/17 09:23 Dose: 1 tab Diazepam (Valium Tab(*)) 10 mg PO TID PRN PRN Reason: ANXIETY Guaifenesin (Mucinex*) 600 mg PO BID [facility] Last Admin: 11/21/17 09:23 Dose: 600 mg Heparin Sodium (Porcine) (Heparin Vial(*)) 5,000 units SUBCUT Q8HR [facility] Last Admin: 11/21/17 05:42 Dose: 5,000 units Sodium Chloride (Ns 0.9% 1000 Ml*) 1,000 mls @ 75 mls/hr IV PER RATE [facility] Last Admin: 11/21/17 09:22 Dose: 75 mls/hr Azithromycin 500 mg/ Sodium (Chloride) 250 mls @ 250 mls/hr IVPB Q24H [facility] Last Admin: 11/21/17 09:19 Dose: 250 mls/hr Ibuprofen (Motrin Tab*) 400 mg PO Q6H PRN PRN Reason: fever/pain Last Admin: 11/19/17 11:58 Dose: 400 mg Lubiprostone (Amitiza (Nf)) 24 mcg PO BID [facility] Last Admin: 11/21/17 09:23 Dose: 24 mcg Meclizine HCl (Antivert Tab*) 12.5 mg PO TID PRN PRN Reason: DIZZINESS Melatonin (Melatonin (Nf)) 3 mg PO BEDTIME PRN; Protocol PRN Reason: Sleep Metoprolol Tartrate (Lopressor Tab*) 25 mg PO BID [facility] Last Admin: 11/21/17 09:23 Dose: 25 mg Mometasone Furoate/Formoterol Fumar (Dulera 100/5 Mdi*) 2 puff INH BID [facility] Last Admin: 11/21/17 07:45 Dose: 2 puff Omeprazole (Prilosec Cap*) 20 mg PO DAILY@0600 [facility] Last Admin: 11/21/17 05:42 Dose: 20 mg Ondansetron HCl (Zofran Inj*) 4 mg IV Q6H PRN PRN Reason: NAUSEA Last Admin: 11/18/17 21:27 Dose: 4 mg Oxycodone/Acetaminophen (Percocet 5/325 Tab*) 1 tab PO Q4H PRN PRN Reason: PAIN Last Admin: 11/21/17 04:12 Dose: 1 tab Trazodone HCl (Desyrel Tab*) 50 mg PO BEDTIME [facility] Last Admin: 11/20/17 20:17 Dose: 50 mg Vital Signs - 8 hr 11/21/17 11/21/17 11/21/17 03:49 04:01 04:12 Temperature 98.1 F Pulse Rate 56 55 Respiratory 16 16 18 Rate Blood Pressure 153/103 143/80 (mmHg) O2 Sat by Pulse 97 96 Oximetry 11/21/17 11/21/17 08:00 09:10 Temperature Pulse Rate Respiratory 20 18 Rate Blood Pressure (mmHg) O2 Sat by Pulse Oximetry Oxygen Devices in Use Now: Nasal Cannula Appearance: A+O x3 72 yo male sitting up in a chair in NAD; essential tremors noted Eyes: No Scleral Icterus Respiratory: Symmetrical Chest Expansion and Respiratory Effort, - - b/l LL scattered rhonchi, diminished Cardiovascular: NL Sounds; No Murmurs; No JVD, RRR, - - trace LE edema Abdominal: NL Sounds; No Tenderness; No Distention Extremities: No Clubbing, Cyanosis, - - R foot drop, right ankle edema, pain to medial and lateral malleolus with palpation Skin: - - Left buttock has opening 2 cm x 1 cm x .1 cm; wound bed is red with no drainage noted. cover with mepilex. Neurological: Alert and Oriented x 3, NL Sensation, - - essential tremors UE Lines/Tubes/Other Access: Clean, Dry and Intact Peripheral IV Nutrition: Taking PO's Result Diagrams: 11/21/17 05:49 11/21/17 05:49 Microbiology and Other Data: Microbiology 11/18/17 11:30 Gram Stain - Final Buttock Assess/Plan/Problems-Billing Assessment: This is a 72 year old male patient with hx osignificant for PD with advancing weakness, presents to ER with c/o subjective fever, cough and malaise, likely viral illness and COPD exacerbation, clinically improving today. - Patient Problems (1) Fever Comment: - Last Temp 3/2 99; Max temp 102.2; No Temp in 24 hours. Influenza negative. Possible COPD exacerbation, no evidence of pneumonia on chest xray on admission , plan to repeat chest xray after hydration as he has b/l lower lobe rhonchi. - Sputum with 1+ yeast - no thrush noted in mouth - Nystatin swish & swallow x 7 days. - Tylenol PRN - Blood cultures NTD - Continue azithromycin - last dose today (2) COPD exacerbation Comment: - CXR as above - Continue nebs, azithromycin day 5 of 5, mucinex, tessolon, O2 (3) Parkinson disease Comment: - Neurology consult appreciated - No changes in medical management at this time - Continue supportive care and SW/CM follow up (4) Weakness Comment: - 2/2 parkinson's - PT/OT consult - Home DME at [place] (5) Right ankle pain Comment: Reports foot drop for the past few months. Right ankle pain with noted edema. No known trauma. Obtain xray d/t decreased ROM, pain and swelling. - PT (6) Sacral decubitus ulcer Comment: - Wound care consult appreciated - Culture negative - Local wound care, recommended off loading device at home (7) History of TIA (transient ischemic attack) Comment: - Continue ASA and statin (8) CAD (coronary artery disease) Comment: - Continue Aspirin, Metoprolol and statin (9) Full code status (10) DVT prophylaxis Comment: - HSQ Status and Disposition: Remain inpatient. Dispo planning to home Thursday when DME is delivered. PMRU following?
--- NOTE | 2017-11-21 11:24 | RAD ---
HISTORY: Right ankle pain and edema COMPARISONS: None VIEWS: 3, Frontal, lateral, and oblique views of the right ankle FINDINGS: BONE DENSITY: Normal. BONES: There is no displaced fracture. JOINTS: There is no arthropathy. ALIGNMENT: There is no dislocation. SOFT TISSUES: There is extensive circumferential soft tissue swelling OTHER FINDINGS: None. IMPRESSION: SOFT TISSUE SWELLING. NO ACUTE OSSEOUS INJURY. IF SYMPTOMS PERSIST, RECOMMEND REPEAT IMAGING.
--- NOTE | 2017-11-21 11:25 | RAD ---
HISTORY: Cough COMPARISONS: November 17, 2017 VIEWS: 2: Frontal and lateral views of the chest. FINDINGS: CARDIOMEDIASTINAL SILHOUETTE: The cardiomediastinal silhouette is normal. EDGAR: The edgar are normal. PLEURA: The costophrenic angles are sharp. No pleural abnormalities are noted. LUNG PARENCHYMA: There is hyperinflation with flattening of the diaphragm and expansion of the AP diameter of the chest. There is persistent linear opacification of the left lung base. ABDOMEN: The upper abdomen is clear. There is no subphrenic gas. BONES AND SOFT TISSUES: There is diffuse osteopenia. The patient is status post dorsal column stimulator placement. There is soft tissue calcification consistent with calcific tendinopathy of the right shoulder. OTHER: None. IMPRESSION: COPD WITH PERSISTENT LINEAR ATELECTASIS OF THE LEFT LUNG BASE.
[2017-11-21] MEDS: Nystatin SUSPENSION* 100000 UNITS/ML 5 ML UDC PO SCH ×3 (12:45→21:33)
[2017-11-21] MEDS: Acetaminophen TAB* 325 MG PO PRN (16:07)
[2017-11-21] MEDS: traZODone TAB* 50 MG TAB PO SCH (21:32)
[2017-11-21] MEDS: Atorvastatin* 20 MG TAB PO SCH (21:32)
[2017-11-22] MEDS: NS 0.9% 1000 ML* 1,000 ML IV SCH (01:08)
[2017-11-22] MEDS: Omeprazole CAP* 20 MG PO SCH (06:02)
[2017-11-22] MEDS: Acetaminophen TAB* 325 MG PO PRN ×2 (06:02→12:50)
[2017-11-22] MEDS: Heparin VIAL(*) 5000 UNITS/ML VIAL (FIVE THOUSAND) SUBCUT SCH ×3 (06:02→21:33)
[2017-11-22] MEDS: Ondansetron INJ* 2 MG/ML VIAL IV PRN (06:03)
--- NOTE | 2017-11-22 07:16 | PN ---
Subjective Date of Service: 11/22/17 Interval History: Patient agrees with subacute rehab reporting that he feels weak. He reports over all today he feels a little better. Reports some mild nausea which he reports is chronic. No vomiting. No abdominal pain. Reports decreased appetite but states this is his baseline. No further fever or chills. Objective Active Medications: Acetaminophen (Tylenol Tab*) 650 mg PO Q6H PRN PRN Reason: FEVER/PAIN Last Admin: 11/22/17 06:02 Dose: 650 mg Albuterol (Ventolin 2.5 Mg/3 Ml Neb.Solange*) 2.5 mg INH Q6H PRN PRN Reason: SOB/WHEEZING Aspirin (Aspirin Tab*) 325 mg PO DAILY [facility] Last Admin: 11/21/17 09:23 Dose: 325 mg Atorvastatin Calcium (Lipitor*) 20 mg PO BEDTIME [facility] Last Admin: 11/21/17 21:32 Dose: 20 mg Benzonatate (Tessalon Cap*) 100 mg PO BID PRN PRN Reason: COUGH Last Admin: 11/18/17 23:50 Dose: 100 mg Carbidopa/Levodopa (Sinemet 25/100 Tab(*)) 1 tab PO QID [facility] Last Admin: 11/21/17 21:32 Dose: 1 tab Diazepam (Valium Tab(*)) 10 mg PO TID PRN PRN Reason: ANXIETY Guaifenesin (Mucinex*) 600 mg PO BID [facility] Last Admin: 11/21/17 21:32 Dose: 600 mg Heparin Sodium (Porcine) (Heparin Vial(*)) 5,000 units SUBCUT Q8HR [facility] Last Admin: 11/22/17 06:02 Dose: 5,000 units Sodium Chloride (Ns 0.9% 1000 Ml*) 1,000 mls @ 75 mls/hr IV PER RATE [facility] Last Admin: 11/22/17 01:08 Dose: 75 mls/hr Ibuprofen (Motrin Tab*) 400 mg PO Q6H PRN PRN Reason: fever/pain Last Admin: 11/19/17 11:58 Dose: 400 mg Lubiprostone (Amitiza (Nf)) 24 mcg PO BID [facility] Last Admin: 11/21/17 21:32 Dose: 24 mcg Meclizine HCl (Antivert Tab*) 12.5 mg PO TID PRN PRN Reason: DIZZINESS Melatonin (Melatonin (Nf)) 3 mg PO BEDTIME PRN; Protocol PRN Reason: Sleep Metoprolol Tartrate (Lopressor Tab*) 25 mg PO BID [facility] Last Admin: 11/21/17 21:32 Dose: 25 mg Mometasone Furoate/Formoterol Fumar (Dulera 100/5 Mdi*) 2 puff INH BID [facility] Last Admin: 11/21/17 20:10 Dose: 2 puff Nystatin (Nystatin Suspension*) 500,000 units PO QID [facility] Stop: 11/28/17 12:59 Last Admin: 11/21/17 21:33 Dose: 500,000 units Omeprazole (Prilosec Cap*) 20 mg PO DAILY@0600 [facility] Last Admin: 11/22/17 06:02 Dose: 20 mg Ondansetron HCl (Zofran Inj*) 4 mg IV Q6H PRN PRN Reason: NAUSEA Last Admin: 11/22/17 06:03 Dose: 4 mg Oxycodone/Acetaminophen (Percocet 5/325 Tab*) 1 tab PO Q4H PRN PRN Reason: PAIN Last Admin: 11/21/17 17:09 Dose: 1 tab Trazodone HCl (Desyrel Tab*) 50 mg PO BEDTIME [facility] Last Admin: 11/21/17 21:32 Dose: 50 mg Vital Signs - 8 hr 11/21/17 11/22/17 23:55 03:51 Temperature 97.9 F 98.4 F Pulse Rate 63 47 Respiratory 16 16 Rate Blood Pressure 126/55 138/57 (mmHg) O2 Sat by Pulse 95 95 Oximetry Oxygen Devices in Use Now: Nasal Cannula Appearance: A+Ox3 eldelry male in NAD Eyes: No Scleral Icterus, PERRLA Respiratory: Symmetrical Chest Expansion and Respiratory Effort, Clear to Auscultation Cardiovascular: NL Sounds; No Murmurs; No JVD, RRR Abdominal: NL Sounds; No Tenderness; No Distention Extremities: No Clubbing, Cyanosis, - - right foot drop - limited ROM in ankle Neurological: Alert and Oriented x 3, NL Sensation Lines/Tubes/Other Access: Clean, Dry and Intact Peripheral IV Nutrition: Taking PO's Result Diagrams: 11/21/17 05:49 11/21/17 05:49 Microbiology and Other Data: Microbiology 02/28/18 11:30 Gram Stain - Final Buttock Assess/Plan/Problems-Billing Assessment: This is a 72 year old male patient with hx osignificant for PD with advancing weakness, presents to ER with c/o subjective fever, cough and malaise, likely viral illness and COPD exacerbation, clinically improving today. - Patient Problems (1) Fever Comment: - No Temp in 48 hours. Influenza negative. Possible COPD exacerbation, no evidence of pneumonia on repeat chest xray / - Sputum with 1+ yeast - no thrush noted in mouth but could be in posterior throat plan to tx w/ Nystatin swish & swallow x 7 days. - Tylenol PRN - Blood cultures NTD - Finished course of azithromycin (2) COPD exacerbation Comment: - improving - Continue nebs, mucinex, tessolon, O2 (3) Parkinson disease Comment: - Neurology consult appreciated - No changes in medical management at this time - Continue supportive care and SW/CM follow up (4) Weakness Comment: - 2/2 parkinson's - PT/OT consult - Plan for subacute rehab (5) Right ankle pain Comment: Reports foot drop for the past few months. Right ankle pain with noted edema. No known trauma. Xray negative for fx - PT (6) Sacral decubitus ulcer Comment: - Wound care consult appreciated. Continue wound care tx. - Culture negative - Recommended off loading device at home (7) History of TIA (transient ischemic attack) Comment: - Continue ASA and statin (8) CAD (coronary artery disease) Comment: - Continue Aspirin, Metoprolol and statin (9) Full code status (10) DVT prophylaxis Comment: - HSQ Status and Disposition: Remain inpatient. Plan for subacute rehab, awaiting bed offer. PMRU following.
[2017-11-22] MEDS: Mometasone/Formoter 100/5 MDI INH SCH ×2 (08:08→20:14)
[2017-11-22] MEDS: CMCS:Lubiprostone 24 MCG CAP (NF) PO SCH ×2 (09:58→21:32)
[2017-11-22] MEDS: Aspirin TAB* 325 MG PO SCH (09:58)
[2017-11-22] MEDS: Nystatin SUSPENSION* 100000 UNITS/ML 5 ML UDC PO SCH ×4 (09:58→21:32)
[2017-11-22] MEDS: Metoprolol Tartrate TAB* 25 MG PO SCH ×2 (09:58→21:32)
[2017-11-22] MEDS: oxyCODONE/Acetamin 5/325 MG* TAB PO PRN ×2 (09:59→14:11)
[2017-11-22] MEDS: guaiFENesin ER TAB 600 MG PO SCH ×2 (09:59→21:32)
[2017-11-22] MEDS: Carbidopa/Levodop 25/100 MG TAB(*) PO SCH ×4 (09:59→21:32)
[2017-11-22] MEDS: Ibuprofen TAB* 400 MG PO PRN (12:51)
[2017-11-22] MEDS: Atorvastatin* 20 MG TAB PO SCH (21:32)
[2017-11-22] MEDS: Lactobacillus Acidophilu (GG)* 1 CAP CAP PO SCH (21:33)
[2017-11-22] MEDS: traZODone TAB* 50 MG TAB PO SCH (21:33)
[2017-11-23] MEDS: Omeprazole CAP* 20 MG PO SCH (05:18)
[2017-11-23] MEDS: Heparin VIAL(*) 5000 UNITS/ML VIAL (FIVE THOUSAND) SUBCUT SCH (05:18)
[2017-11-23] MEDS: Ondansetron INJ* 2 MG/ML VIAL IV PRN (05:24)
[2017-11-23] MEDS: oxyCODONE/Acetamin 5/325 MG* TAB PO PRN ×2 (05:26→10:26)
[2017-11-23 07:33] VITALS: BP 120/57
[2017-11-23] MEDS: Mometasone/Formoter 100/5 MDI INH SCH (08:14)
[2017-11-23] MEDS: Nystatin SUSPENSION* 100000 UNITS/ML 5 ML UDC PO SCH (08:31)
[2017-11-23] MEDS: CMCS:Lubiprostone 24 MCG CAP (NF) PO SCH (08:31)
[2017-11-23] MEDS: Lactobacillus Acidophilu (GG)* 1 CAP CAP PO SCH (08:32)
[2017-11-23] MEDS: Ibuprofen TAB* 400 MG PO PRN (08:32)
[2017-11-23] MEDS: Acetaminophen TAB* 325 MG PO PRN (08:32)
[2017-11-23] MEDS: Metoprolol Tartrate TAB* 25 MG PO SCH (08:32)
[2017-11-23] MEDS: Carbidopa/Levodop 25/100 MG TAB(*) PO SCH (08:32)
[2017-11-23] MEDS: guaiFENesin ER TAB 600 MG PO SCH (08:32)
[2017-11-23] MEDS: Aspirin TAB* 325 MG PO SCH (08:33)
[2017-11-23] MEDS ORDERED: Docusate CAP* 100 MG PO PRN (10:01)
[2017-11-23] MEDS ORDERED: Polyethylene Glycol 3350* 17 GM PACKET PO PRN (10:01)
[2017-11-23] MEDS ORDERED: Senna TAB PO SCH (10:01)
--- NOTE | 2017-11-23 10:13 | PN ---
Subjective Date of Service: 11/23/17 Interval History: Mr. Ruiz reports a continued cough productive of clear sputum. He denies other complaint and is eager for discharge to home. Objective Active Medications: Acetaminophen (Tylenol Tab*) 650 mg PO Q6H PRN Albuterol (Ventolin 2.5 Mg/3 Ml Neb.Solange*) 2.5 mg INH Q6H PRN Aspirin (Aspirin Tab*) 325 mg PO DAILY [facility] Atorvastatin Calcium (Lipitor*) 20 mg PO BEDTIME [facility] Benzonatate (Tessalon Cap*) 100 mg PO BID PRN Carbidopa/Levodopa (Sinemet 25/100 Tab(*)) 1 tab PO QID [facility] Diazepam (Valium Tab(*)) 10 mg PO TID PRN Docusate Sodium (Colace Cap*) 100 mg PO BID PRN Guaifenesin (Mucinex*) 600 mg PO BID [facility] Heparin Sodium (Porcine) (Heparin Vial(*)) 5,000 units SUBCUT Q8HR [facility] Ibuprofen (Motrin Tab*) 400 mg PO Q6H PRN Lactobacillus Rhamnosus (Culturelle*) 1 cap PO BID [facility] Lubiprostone (Amitiza (Nf)) 24 mcg PO BID [facility] Meclizine HCl (Antivert Tab*) 12.5 mg PO TID PRN Melatonin (Melatonin (Nf)) 3 mg PO BEDTIME PRN; Protocol Metoprolol Tartrate (Lopressor Tab*) 25 mg PO BID [facility] Mometasone Furoate/Formoterol Fumar (Dulera 100/5 Mdi*) 2 puff INH BID [facility] Nystatin (Nystatin Suspension*) 500,000 units PO QID [facility] Omeprazole (Prilosec Cap*) 20 mg PO DAILY@0600 [facility] Ondansetron HCl (Zofran Inj*) 4 mg IV Q6H PRN Oxycodone/Acetaminophen (Percocet 5/325 Tab*) 1 tab PO Q4H PRN Polyethylene Glycol/Electrolytes (Miralax*) 17 gm PO DAILY [facility]N Senna (Senokot Tab*) 1 tab PO DAILY [facility] Trazodone HCl (Desyrel Tab*) 50 mg PO BEDTIME [facility] Vital Signs: Temp Pulse Resp BP Pulse Ox 97.7 F 52 16 120/57 94 11/23/17 07:15 11/23/17 07:15 11/23/17 08:00 11/23/17 07:15 11/23/17 07:15 Oxygen Devices in Use Now: None Appearance: Male sitting up in chair Eyes: No Scleral Icterus Ears/Nose/Mouth/Throat: Mucous Membranes Moist Neck: Trachea Midline Respiratory: Symmetrical Chest Expansion and Respiratory Effort, - - Congestion clears with coughing Cardiovascular: NL Sounds; No Murmurs; No JVD, No Edema Abdominal: NL Sounds; No Tenderness; No Distention Lymphatic: No Cervical Adenopathy Extremities: No Edema Skin: No Rash or Ulcers Neurological: Alert and Oriented x 3, - - Foot drop, R > L Nutrition: Taking PO's Result Diagrams: 11/21/17 05:49 11/21/17 05:49 Microbiology and Other Data: . Assess/Plan/Problems-Billing Assessment: Mr. Ruiz is a 72 year old male patient with hx significant for PD with advancing weakness, presents to ER with c/o subjective fever, cough and malaise , likely viral illness and COPD exacerbation. - Patient Problems (1) Fever Comment: - Resolved. - Influenza negative. Likely viral etiology with possible COPD exacerbation, no evidence of pneumonia on repeat chest xray 11/21. - Blood cultures NGTD - Finished course of azithromycin (2) COPD exacerbation Comment: - Resolved. - COPD suspected based on symptoms, cxray findings and decades long history of smoking. - Continue dulera. - Recommend outpatient follow up with PFTs for definitive diagnosis. (3) Parkinson disease Comment: - Neurology consult appreciated - No changes in medical management at this time - Continue supportive care and SW/CM follow up (4) Chronic pain Comment: - Continue percocet PRN with amitiza (5) Right ankle pain Comment: - Reports foot drop for the past few months. Right ankle pain with noted edema. No known trauma. - Xray negative for fx - Continue PT. (6) Weakness Comment: - 2/2 parkinson's - PT/OT consult - Plan for subacute rehab (7) Sacral decubitus ulcer Comment: - Wound care consult appreciated. Continue wound care tx. - Culture negative - Recommended off loading device at home (8) CAD (coronary artery disease) Comment: - Continue Aspirin, Metoprolol and statin (9) History of TIA (transient ischemic attack) Comment: - Continue ASA and statin (10) DVT prophylaxis Comment: - HSQ (11) Full code status Comment: Status and Disposition: Discharge to [facility].
[2017-11-23] MEDS ORDERED: Prochlorperazine TAB* 5 MG PO PRN (11:08)
--- NOTE | 2017-11-24 12:32 | DS ---
CC: Dr. Wetzel [facility] MEDICINE DISCHARGE SUMMARY: DATE OF ADMISSION: 11/18/17 DATE OF DISCHARGE: 11/23/17 PRIMARY CARE PHYSICIAN: Dr. Wetzel. ATTENDING PHYSICIAN: Silvano Cano MD (dictation provided by Cecilia Richard NP). PRIMARY DIAGNOSES: 1. Fever with suspected viral illness. 2. Suspected chronic obstructive pulmonary disease (new diagnosis) SECONDARY DIAGNOSES: 1. Parkinson's disease. 2. Coronary artery disease with myocardial infarction and stent. 3. Transient ischemic attack. 4. Fibromyalgia. 5. Chronic low back pain. 6. Chronic nausea. MEDICATIONS AT THE TIME OF DISCHARGE: 1. Meclizine 12.5 to 25 mg p.o. t.i.d. p.r.n. 2. Oxycodone/acetaminophen 5/325 mg 1 tab p.o. q.4 hours p.r.n. 3. Simvastatin 40 mg p.o. at bedtime. 4. Nitroglycerin 0.4 mg sublingually q.5 minutes p.r.n. 5. Multivitamin with mineral 1 tab p.o. daily. 6. Diazepam 10 mg p.o. t.i.d. p.r.n. 7. Trazodone 50 mg p.o. at bedtime. 8. Metoprolol tartrate 25 mg p.o. b.i.d. 9. Amitiza 24 mcg p.o. b.i.d. 10. Aspirin 325 mg p.o. daily. 11. Carbidopa/levodopa 25/100 one tab p.o. 4 times a day. 12. Guaifenesin 600 mg p.o. b.i.d. 13. Senna 1 tab p.o. daily. 14. Polyethylene glycol 17 g p.o. daily p.r.n. 15. Compazine 5 mg p.o. q.6 hours p.r.n. nausea (new medication) 16. MiraLax 17 g p.o. daily p.r.n. 17. Dulera 100/5 two puffs inhaled b.i.d.(new medication). 18. Melatonin 3 mg p.o. b.i.d. p.r.n. 19. Lactobacillus 1 cap p.o. b.i.d. 20. Ibuprofen as needed. 21. Benzonatate 100 mg p.o. b.i.d. 21. Tylenol 650 mg p.o. q.6 hours p.r.n. HOSPITAL COURSE: Mr. Ruiz is a 72-year-old male with a past medical history of Parkinson's with cor onary artery disease, ME and stent, who presented to the hospital on 11/18/17 with concern for genera lized malaise. Please see the dictated H and P from Dr. Maxwell Martin for complete details. In [facility], the patient had reported intermittent nausea with vomiting, poor appetite, loss of stools, inte rmittent fever and chills, easy fatigability and sweats over the past year. He said he had lost abou t 20-25 pounds over the past 6 months in the setting of this chronic illness. He presented to the ED with fever with a temperature of 101.3, and O2 saturation in the 80s. The patient was admitted to [facility] with concern for fever of uncertain origin. Mr. Ruiz had a chest x-ray, which showed stigmata of obstructive lung disease, but no evidence of pn eumonia or CHF. He had labs which showed no leukocytosis. His urine showed no evidence of infection . His flu swab was negative. He had blood cultures drawn, which showed no growth. His sputum cultu re only showed 1+ yeast, which is likely contaminant. Mr. Ruiz's fever was suspected to be secondary to a viral illness. He has not had a fever for over 4 days. He continues to have cough with clear sputum production and had been requiring up to 2 L alysa al cannula as of yesterday, but now is on room air. Mr. Ruiz has a long-term history of smoking fro m the age of 18 until his mid 50s. He says he smoked up to 3 packs a day at times. His chest x-ray is concerning for COPD. I think based on the x-ray findings and his history, he likely does have a c omponent of COPD. He has been started on Dulera and should be continued on albuterol p.r.n. We kesha mmend that he have outpatient pulmonary function testing for definitive diagnosis. Mr. Ruiz has persistent weakness. He has been evaluated by Physical and Occupational Therapy to hav e rehab needs and he has been accepted to our inpatient PMRU unit for further rehabilitation. Mr. Ruiz is mentally stable for discharge to home. Follow up with Dr. Wetzel at the time of dischar ge regarding this acute hospitalization and new diagnosis of COPD. TIME SPENT: Approximately 75 tianna sagar was spent on discharge of this patient; more than half the time was spent with the patient at the bedside reviewing the events leading up to this hospitalization, performing the physical examination , and reviewing my plan of care. CECILIA RICHARD NP [id number]/CPS #: [id number]
== END 2017-11-23 12:13 | DRG 866 ==
LOC: ED 19:40 → MEDTELE 23:50 → OBSVTOIN 11-18 09:00
PROVIDERS: ADMIT Hospitalist; ATTEND Hospitalist
DX: B34.9 Viral infection, unspecified (principal); L89.322 Pressure ulcer of left buttock, stage 2; G20 Parkinson's disease; I11.9 Hypertensive heart disease without heart failure; N20.9 Urinary calculus, unspecified; J44.9 Chronic obstructive pulmonary disease, unspecified; I25.10 Atherosclerotic heart disease of native coronary artery without angina pectoris; M79.7 Fibromyalgia; M54.5 Low back pain; K58.1 Irritable bowel syndrome with constipation; M25.571 Pain in right ankle and joints of right foot; R11.0 Nausea; I25.2 Old myocardial infarction; Z87.891 Personal history of nicotine dependence; Z95.5 Presence of coronary angioplasty implant and graft; Z86.73 Personal history of transient ischemic attack (TIA), and cerebral infarction without residual deficits; Z79.1 Long term (current) use of non-steroidal anti-inflammatories (NSAID); Z79.82 Long term (current) use of aspirin; Z79.891 Long term (current) use of opiate analgesic; Z79.899 Other long term (current) drug therapy; Z80.0 Family history of malignant neoplasm of digestive organs; Z82.3 Family history of stroke
CPT/HCPCS: 36415; 71045; 71046; 80053; 81003; 81015; 83605; 84134; 84484; 85025; 85027; 85610; 85730; 87040; 87070; 87086; 87205; 87502; 93005; 94640; 94760; 99285; A9270-GY; J0456; J1644; J2270; J2405; J2543; J3370

== ENCOUNTER 2017-11-23 10:27 | Inpatient (IN) | payer MEDICARE ==
[2017-11-23] MEDS ORDERED: Magnesium Hydroxide LIQ* 30 ML UDC PO PRN (13:18)
[2017-11-23] MEDS ORDERED: Carbidopa/Levodop 25/100 MG TAB(*) PO ONE (13:27)
[2017-11-23] MEDS: Senna TAB PO PRN (14:09)
[2017-11-23] MEDS: Heparin VIAL(*) 5000 UNITS/ML VIAL (FIVE THOUSAND) SUBCUT SCH ×2 (14:10→20:53)
[2017-11-23] MEDS: oxyCODONE/Acetamin 5/325 MG* TAB PO PRN ×2 (15:16→20:49)
[2017-11-23] MEDS: CARBIDOPA PO SCH ×2 (16:51→20:49)
[2017-11-23] MEDS: Atorvastatin* 20 MG TAB PO SCH (16:51)
[2017-11-23] MEDS: LEVODOP PO SCH ×2 (16:51→20:49)
[2017-11-23] MEDS: Prochlorperazine TAB* 10 MG PO PRN (19:18)
[2017-11-23] MEDS: Metoprolol Tartrate TAB* 25 MG PO SCH (20:48)
[2017-11-23] MEDS: Lactobacillus Acidophilu (GG)* 1 CAP CAP PO SCH (20:48)
[2017-11-23] MEDS: Docusate CAP* 100 MG PO SCH (20:48)
[2017-11-23] MEDS: traZODone TAB* 50 MG TAB PO SCH (20:49)
[2017-11-23] MEDS: Mometasone/Formoter 100/5 MDI INH SCH (20:52)
[2017-11-23] MEDS ORDERED: LUBIPROSTONE 24 MCG PO SCH (21:00)
--- NOTE | 2017-11-23 23:12 | HP ---
ADMISSION HISTORY AND PHYSICAL: DATE OF ADMISSION: 11/23/17 REASON FOR ADMISSION: Parkinson's disease. HISTORY OF ILLNESS: Rodney Ruiz is a 72-year-old white male. He has a medical history significant for Parkinson's disease. He follows with a neurologist in [place], Dr. Estephania Scott. He has not been up there in several months due to the winter weather. He has been on many different medications in the past including Rytary, Requip, amantadine, selegiline. All of these were either not tolerated or lost their effectiveness over time. He is currently on Sinemet 25/100 four times a day. The patient normally lives at home with his . He tells me he has a lift chair at home to help him get up after he is sitting down. Over the past few weeks, he has been spending more and more time in the lift chair and even sleeping in the lift chair. The patient's was sick with the flu in October. Rodney began to get sick and had fatigues and night sweats. On 11/17/17, the patient's was unable to get him out of the lift chair. She tried several attempts. It was decided that 911 should be called. In the emergency room, the patient was found to have a fever. He was admitted to the hospitalist service. He was found to have a fever of 100.8. Chest x-ray showed COPD. There was no evidence of any pneumonia. The patient was found to have a small decubitus ulcer over his left buttock. The patient was admitted. It was felt that his fever was likely secondary to a viral illness. Blood cultures in addition to his chest x-ray that did not show any cause of the fever. The patient seemed to be clinically improving. He had great difficulties with his mobility. He was given Zithromax Z- Mono while in the hospital. The patient was felt to have physical therapy and occupational therapy needs. He is now being admitted for inpatient rehab, so he might return to independent living. Of note, the patient did have a consult with the wound care team. PAST MEDICAL HISTORY: Significant for Parkinson's disease as mentioned previously. He also has history of hypertension, hyperlipidemia, chronic low back pain, coronary artery disease. CURRENT MEDICATIONS: Include: 1. Lipitor. 2. Aspirin. 3. Sinemet. 4. Heparin for DVT prophylaxis. 5. Amitiza. 6. Lopressor. 7. Prilosec. 8. Percocet. 9. Trazodone. ALLERGIES: No known drug allergies. SOCIAL HISTORY: He lives in a double wide trailer with his . He is a nonsmoker, but his is a heavy smoker. He does have a lift chair at home. He normally ambulates with one cane. There are 3 steps to enter. REVIEW OF SYSTEMS: The patient reports difficulty with constipation. PHYSICAL EXAMINATION VITAL SIGNS: The patient's temperature is 97.6, blood pressure is 125/69, pulse is 61, respirations 18. HEENT: His extraocular movements are intact. NECK: Supple. LUNGS: Sounded clear to auscultation bilaterally. HEART: Sounds are regular. S1 and S2 are audible. ABDOMEN: Soft and nontender. EXTREMITIES: His extremities showed slightly increased tone in both upper extremities. He does have a resting tremor in all 4 extremities. His peripheral pulses were intact. NEUROLOGIC: The patient was awake, alert, oriented. Muscle strength is about 4 +/5 throughout. FUNCTIONAL EXAM: He transfers with mod to max assist. ASSESSMENT: Parkinson's disease. PLAN: We are going to integrate him into a comprehensive and therapeutic rehab program. We will have the following goals: 1. Physical Therapy will see the patient. They are going to work on functional transfer training and ambulation training with a walker. 2. Occupational Therapy will see the patient. They are going to work on activities of daily living including toileting and toilet transfers. 3. Heparin for DVT prophylaxis. 4. For his Parkinson's disease, we are going to continue him on Sinemet. 5. For coronary artery disease, we will continue him on aspirin and Lipitor. 6. For his chronic constipation, we are going to try lactulose. We will likely stop his Amitiza. 7. For his back pain, we will continue his Percocet. 8. director pharmacy services will be closely involved to make sure that any services and equipment that the patient requires are in place prior to discharge. 9. Family training as appropriate. 10. Home with appropriate services. ESTIMATED LENGTH OF STAY: 12 to 14 days. [id number]/[facility] #: [id number] NANI
[2017-11-24] MEDS: oxyCODONE/Acetamin 5/325 MG* TAB PO PRN ×4 (04:59→21:17)
[2017-11-24] MEDS: Heparin VIAL(*) 5000 UNITS/ML VIAL (FIVE THOUSAND) SUBCUT SCH ×3 (05:31→21:23)
[2017-11-24] MEDS: Omeprazole CAP* 20 MG PO SCH (05:31)
[2017-11-24] MEDS: Prochlorperazine TAB* 10 MG PO PRN ×2 (05:31→22:18)
[2017-11-24] MEDS: LEVODOP PO SCH ×4 (09:15→21:17)
[2017-11-24] MEDS: Aspirin TAB* 325 MG PO SCH (09:15)
[2017-11-24] MEDS: CARBIDOPA PO SCH ×4 (09:15→21:17)
[2017-11-24] MEDS: Docusate CAP* 100 MG PO SCH ×2 (09:15→21:17)
[2017-11-24] MEDS: Mometasone/Formoter 100/5 MDI INH SCH ×2 (09:16→21:19)
[2017-11-24] MEDS: Lactobacillus Acidophilu (GG)* 1 CAP CAP PO SCH (09:16)
[2017-11-24] MEDS: Metoprolol Tartrate TAB* 25 MG PO SCH ×2 (09:16→21:17)
[2017-11-24] MEDS ORDERED: Sodium Phosphate ADULT ENEMA* 118 ml bottle PR PRN (10:26)
--- NOTE | 2017-11-24 12:43 | PMRUTEAM ---
PMRU: Goals Current Status: Nursing: Current Status Skin Deviations [Buttocks] Other Skin Deviation Description [ slightly red Buttocks] Skin Deviation Description [ mepelex Coccyx] Physical Therapy: Current Status Bed Mobility Assistance Supervision,Min Assist Transfer Moblility Assistance Supervision,Min Assist Ambulation Assistance Supervision,Min Assist Ambulation Assistive Devices Rolling Walker Stairs Assistance Not Tested Occupational Therapy: Current Status Upper Body Dressing Min Assist Lower Body Dressing Total Assist Bathing Max Asst Toileting Max Asst Toilet Transfer Mod Assist,2 Person Assist Shower Transfer Mod Assist,2 Person Assist Eating Ind with Adaptive Equip Rec Therapy: Current Status Summary of Assessment and Will meet with patient today to complete RT Clinical Impression assessment and set goals. Social Work: Current Status Discharge Plan return home with home care svs and family support Potential for Family Training pt's is involved and attentive Anticipated Discharge Home Destination Discharge With home care svs and family support Nutrition: Current Status Monitoring new admission - full assessment planned no later than 12/03. Initial nutrition goals as outlined below. Goals: Physical Therapy: Updated Goals Transfer/Bed Mobility Rolling Walker Recommended Devices Occupational Therapy: Initial Goals Goals to be Completed in (Days 7-10 days ) Upper Body Bathing Routine Supervision/Set Up Lower Body Bathing Routine Moderate Assist Upper Body Dressing Routine Minimal Contact Assist Lower Body Dressing Routine Moderate Assist Toilet Hygeine and Clothing Supervision/Set Up Management Routine Toilet Transfer Routine Supervision/Set Up Tub Transfer Routine Supervision/Set Up Functional Transfers for ADL Modified Independent with Grooming Routine Modified Independent with Feeding Routine Modified Independent with Nutrition: Goals Intervention Goals 1. adequate po intake to promote stable weight and maintain lean body mass - Goal: > 75% intake of meals 2. adequate hydration without clincial s/sx dehydration 3. maintain serum electrolytes within normal ranges 4. maintain regularity of BM w/o constipation (or diarrhea) Social Work: Goals Discharge Plan return home with home care svs and family support Potential for Family Training pt's is involved and attentive Anticipated Discharge Home Destination Discharge With home care svs and family support Care Plan: Care Plan ADL's - Improve/Maintain Start: 11/24/17 11:32 Freq: DAILY Status: Active Target: Protocol: Activity Type Activity Date Activity User E-Sign Co-Sign Detail Recorded Client Recorded Date Recorded By Document 11/24/17 11:32 [id number] 11/24/17 11:33 [id number] 11/24/17 11:32 PMRU Outcome: ADL's/ADL Transfers Orders/Interventions Occupational Therapy Evaluation & Treatment Patient to receive OT 5x/wk for 60-120 Therex min/day Self Care Management Group Therapy UE/LE ADL's with Assist Yes ADL Transfers with Assist Yes Toileting: Transfers,Clothing Management Yes ,Hygeine w/Assist Light Kitchen/Laundry w/Assist Yes Progression Toward Outcome/Goals Progressing Coping/Psych-Improve/Maintain Start: 11/23/17 19:26 Freq: DAILY Status: Active Target: Protocol: Activity Type Activity Date Activity User E-Sign Co-Sign Detail Recorded Client Recorded Date Recorded By Document 11/24/17 00:50 [id number] 11/24/17 00:58 [id number] 11/24/17 00:50 PMRU Outcome: Coping/Psychosocial Coping Outcome/Goals Verbalization of Acceptance of Rehab Admit Verbalization of Sense of Control Over Health Status Utilization of Appropriate Problem Solving Techniques Willingness to Participate in Treatment Plan and Basic Needs Utilization of Available Support Systems Absence of Destructive Behavior to Self/Others Psychosocial Outcome/Goals Maintain/ Improve Emotional Health Demonstrates Knowledge of Healthy Coping Mechanisms Available Cooperate/ Participate in Plan Progression Toward Outcome/Goals - Progressing Coping Progression Toward Outcome/Goals - Progressing Psychosocial DVT Prophylaxis- Improve/Maintain Start: 11/23/17 19:26 Freq: DAILY Status: Active Target: Protocol: Activity Type Activity Date Activity User E-Sign Co-Sign Detail Recorded Client Recorded Date Recorded By Document 11/24/17 00:50 [id number] 11/24/17 00:58 [id number] 11/24/17 00:50 PMRU Outcome: DVT Prophylaxis Outcome/Goals Remains Free of DVT Complies with DVT Prophylaxis /Treatment Progression Toward Outcome/Goals Progressing Discharge Planning - Improve/Maintain Start: 11/23/17 19:26 Freq: DAILY Status: Active Target: Protocol: Activity Type Activity Date Activity User E-Sign Co-Sign Detail Recorded Client Recorded Date Recorded By Document 11/23/17 19:26 [id number] 11/23/17 19:29 [id number] 11/23/17 19:26 PMRU Outcome: Discharge Planning Identify Patient Needs yes Update Patient Family Yes Outcome/Goals Demonstrates Understanding of Discharge Plan Progression Toward Outcome/Goals Progressing Education-Improve/Maintain Start: 11/23/17 19:26 Freq: DAILY Status: Active Target: Protocol: Activity Type Activity Date Activity User E-Sign Co-Sign Detail Recorded Client Recorded Date Recorded By Document 11/24/17 00:50 [id number] 11/24/17 00:58 [id number] 11/24/17 00:50 PMRU Outcome: Education Outcome/Goals Demonstrate/ Verbalize Understanding of Written Discharge Instructions Demonstrates Skills Encourage Questions Progression Toward Outcome/Goals Progressing /GI-Improve/Maintain Start: 11/23/17 19:26 Freq: DAILY Status: Active Target: Protocol: Activity Type Activity Date Activity User E-Sign Co-Sign Detail Recorded Client Recorded Date Recorded By Document 11/24/17 00:50 [id number] [id number] 11/24/17 00:58 [id number] 11/24/17 00:50 PMRU Outcome: Genitourinary/ Gastrointestinal Genitourinary- Outcome/Goals Maintain/ Achieve Urinary Continence Maintain/ Achieve Adequate Urinary Output Gastrointestinal-Outcome/Goals Maintain/ Achieve Bowel Regularity in Accordance with Pt's Baseline Remain Free of Emesis Bowel Regularity at Home Progression Toward Outcome/Goals - Progressing Progression Toward Outcome/Goals - GI Progressing Pain/Comfort- Improve/Maintain Start: 11/23/17 19:26 Freq: DAILY Status: Active Target: Protocol: Activity Type Activity Date Activity User E-Sign Co-Sign Detail Recorded Client Recorded Date Recorded By Document 11/24/17 00:50 [id number] 11/24/17 00:58 [id number] 11/24/17 00:50 PMRU Outcome: Pain/Comfort Outcome/Goals Demonstrates Knowledge and Use of Available Comfort Measures Achieves Acceptable Comfort/Pain Level as Determined by Patient/Condit Maintain Comfort Level Allowing Patient to Fully Participate in Rehab Progression Toward Outcome/Goals Progressing Respiratory - Improve/Maintain Start: 11/23/17 19:26 Freq: DAILY Status: Active Target: Protocol: Activity Type Activity Date Activity User E-Sign Co-Sign Detail Recorded Client Recorded Date Recorded By Document 11/24/17 00:50 [id number] 11/24/17 00:58 [id number] 11/24/17 00:50 PMRU Outcome: Respiratory Does Patient Have a Trach No Outcome/Goals Maintain/ Improve O2 Sat per MD Order Maintain/ Improve Baseline Respiratory Status Maintain/ Improve Activity Tolerance Prevent Pneumonia/ Atelectasis Progression Toward Outcome/Goals Progressing Safety- Improve/Maintain Start: 11/23/17 19:26 Freq: DAILY Status: Active Target: Protocol: Activity Type Activity Date Activity User E-Sign Co-Sign Detail Recorded Client Recorded Date Recorded By Document 11/24/17 00:50 [id number] 11/24/17 00:58 [id number] 11/24/17 00:50 PMRU Outcome: Safety Outcome/Goals Remain Free of Injury or Harm Cooperates with Safety Measures for Least Restrictive Environment Prevent Falls/ Injury Equipment Needed Progression Toward Outcome/Goals Progressing Skin- Improve/Maintain Start: 11/23/17 19:26 Freq: DAILY Status: Active Target: Protocol: Activity Type Activity Date Activity User E-Sign Co-Sign Detail Recorded Client Recorded Date Recorded By Document 11/24/17 00:50 [id number] 11/24/17 00:58 [id number] 11/24/17 00:50 PMRU Outcome: Skin Skin Risk Level High Skin Orders Teach Patient Air Mattress Heels Off Bed Turn/Position q2hr While in Bed Outcome/Goals Maintain/ Improve Skin Intergrity Progression Toward Outcome/Goals Progressing Medicine Note: Length of Stay: 2 weeks Anticipated Discharge Destination: Home Tentative Discharge Date: 12/08/17 Discharged to: Home
[2017-11-24] MEDS ORDERED: Bisacodyl SUPP* 10 MG SUPP PR PRN (13:25)
--- NOTE | 2017-11-24 16:19 | PN ---
Progress Note Date of Service: 11/24/17 Note: TIMOTHY DELGADO was visited. Therapy notes read and reviewed. He was discussed in interdisciplinary team rounds. Posterior lean noted. Quite anxious. Still no BM. Will continue Lactulose; had Dulc Supp and Fleet's Enema today. Current Medications: Active Medications Generic Name Dose Route Start Last Admin Trade Name Freq PRN Reason Stop Dose Admin Acetaminophen 650 mg 11/23/17 13:18 Tylenol Tab* PO Q6H PRN FEVER/HEADACHE Aspirin 325 mg 11/24/17 09:00 11/24/17 09:15 Aspirin Tab* PO 325 mg DAILY EMILY Administration Atorvastatin Calcium 20 mg 11/23/17 17:00 11/23/17 16:51 Lipitor* PO 20 mg 1700 EMILY Administration Bisacodyl 10 mg 11/24/17 13:25 11/24/17 14:42 Dulcolax Supp* [place] 10 mg DAILY PRN Administration CONSTIPATION Carbidopa/Levodopa 1 tab 11/23/17 17:00 11/24/17 13:08 Sinemet 25/100 Tab(*) PO 1 tab QID EMILY Administration Docusate Sodium 100 mg 11/23/17 21:00 11/24/17 09:15 Colace Cap* PO 100 mg BID EMILY Administration Heparin Sodium (Porcine) 5,000 units 11/23/17 14:00 11/24/17 13:09 Heparin Vial(*) SUBCUT 5,000 units Q8HR EMILY Administration Lactobacillus Rhamnosus 1 cap 11/23/17 21:00 11/24/17 09:16 Culturelle* PO 1 cap BID EMILY Administration Lactulose 30 ml 11/23/17 17:00 11/24/17 11:57 Lactulose* PO 30 ml Q6H EMILY Administration Magnesium Hydroxide 30 ml 11/23/17 13:18 11/24/17 07:43 Milk Of Magnesia Liq* PO 30 ml Q6H PRN Administration CONSTIPATION Metoprolol Tartrate 25 mg 11/23/17 21:00 11/24/17 09:16 Lopressor Tab* PO 25 mg BID EMILY Administration Mometasone Furoate/Formoterol Fumar 2 puff 11/23/17 21:00 11/24/17 09:16 Dulera 100/5 Mdi* INH 2 puff BID EMILY Administration Omeprazole 20 mg 11/24/17 06:00 11/24/17 05:31 Prilosec Cap* PO 20 mg 0600 EMILY Administration Oxycodone/Acetaminophen 1 tab 11/23/17 13:37 11/24/17 13:08 Percocet 5/325 Tab* PO 1 tab Q4H PRN Administration PAIN - MODERATE TO SEVERE Prochlorperazine 10 mg 11/23/17 18:31 11/24/17 05:31 Compazine Tab* PO 10 mg Q8H PRN Administration NAUSEA Senna 2 tab 11/23/17 13:18 11/23/17 14:09 Senokot Tab* PO 2 tab BEDTIME PRN Administration CONSTIPATION Sodium Biphosphate/Sodium Phosphate 1 bottle 11/24/17 10:26 Fleet Enema* [place] DAILY PRN CONSTIPATION Trazodone HCl 50 mg 11/23/17 21:00 11/23/17 20:49 Desyrel Tab* PO 50 mg BEDTIME EMILY Administration Vital Signs: Vital Signs Temp Pulse Resp BP Pulse Ox 99.2 F 57 18 134/63 93 11/24/17 04:52 11/24/17 04:52 11/24/17 15:08 11/24/17 04:52 11/24/17 08:00 Exam: HEENT: EOMI LUNGS: Clear HEART: reg rhythm ABDOMEN: soft, distended. +BS EXTREMITIES: Resting tremor NEUROLOGIC: some rigidity. Assessment/Plan: 1. Parkinson's Disease: Sinemet. PT/OT. 2. Nausea: compazine PRN 3. Constipation: Lactulose 4. COPD: Dulera 5. DVT Prophylaxis: Heparin S/Q 6. Advanced Directives: Full code 7. Back pain: Percocet 8. Anxiety: Diazepam PRN 9. CAD: Lipitor/ASA 11/24/17 16:22
[2017-11-24] MEDS: Atorvastatin* 20 MG TAB PO SCH (16:46)
[2017-11-24] MEDS: Senna TAB PO PRN (21:17)
[2017-11-24] MEDS: traZODone TAB* 50 MG TAB PO SCH (21:21)
[2017-11-25] MEDS: Omeprazole CAP* 20 MG PO SCH (05:09)
[2017-11-25] MEDS: Heparin VIAL(*) 5000 UNITS/ML VIAL (FIVE THOUSAND) SUBCUT SCH ×3 (05:09→21:05)
[2017-11-25 06:00] LABS: ABS Basophils 0 10^3/ul (0-0.2); ABS Eosinophils 0 10^3/ul (0-0.6); ABS Lymphocytes 1.2 10^3/ul (1.0-4.8); ABS Monocytes 1.1 10^3/ul (0-0.8); ABS Neutrophils 11.9 10^3/ul (1.5-7.7); ABS Nucleated RBC 0 10^3/ul; Eosinophil % 0 % (0-6); Hematocrit 41 % (42-52); Hemoglobin 14.4 g/dl (14.0-18.0); Lymphocyte % 8.2 % (25-47); Mean Corpuscular HGB Conc 35 g/dl (31-36); Mean Corpuscular Hemoglobin 32 pg (27-31); Mean Corpuscular Volume 90 fL (80-94); Mean Platelet Volume 8 um3 (7.4-10.4); Nucleated Red Blood Cells % 0; Platelet Count 362 10^3/ul (150-450); Red Blood Count 4.59 10^6/ul (4.0-5.4); Red Cell Distribution Width 14 % (10.5-15); White Blood Count 14.1 10^3/ul (3.5-10.8)
[2017-11-25 06:28] LABS: EGFR Non-African American 132.1 (>60)
[2017-11-25] MEDS: Docusate CAP* 100 MG PO SCH ×2 (08:55→21:02)
[2017-11-25] MEDS: LEVODOP PO SCH ×4 (08:55→20:57)
[2017-11-25] MEDS: Metoprolol Tartrate TAB* 25 MG PO SCH ×2 (08:55→20:57)
[2017-11-25] MEDS: Aspirin TAB* 325 MG PO SCH (08:55)
[2017-11-25] MEDS: CARBIDOPA PO SCH ×4 (08:55→20:57)
[2017-11-25] MEDS: Mometasone/Formoter 100/5 MDI INH SCH ×2 (09:03→21:08)
[2017-11-25] MEDS: oxyCODONE/Acetamin 5/325 MG* TAB PO PRN ×3 (10:26→20:58)
[2017-11-25] MEDS: Prochlorperazine TAB* 10 MG PO PRN (15:07)
[2017-11-25] MEDS: Atorvastatin* 20 MG TAB PO SCH (17:07)
[2017-11-25] MEDS: traZODone TAB* 50 MG TAB PO SCH (21:02)
--- NOTE | 2017-11-25 22:27 | PN ---
Progress Note Date of Service: 11/25/17 Note: TIMOTHY DELGADO was visited. Therapy notes read and reviewed. Had multiple BMs today. Will stop Lactulose. Will resume Amitiza on Thursday. He might benefit from Symproic Current Medications: Active Medications Generic Name Dose Route Start Last Admin Trade Name Freq PRN Reason Stop Dose Admin Acetaminophen 650 mg 11/23/17 13:18 Tylenol Tab* PO Q6H PRN FEVER/HEADACHE Aspirin 325 mg 11/24/17 09:00 11/25/17 08:55 Aspirin Tab* PO 325 mg DAILY EMILY Administration Atorvastatin Calcium 20 mg 11/23/17 17:00 11/25/17 17:07 Lipitor* PO 20 mg 1700 EMILY Administration Bisacodyl 10 mg 11/24/17 13:25 11/24/17 14:42 Dulcolax Supp* [place] 10 mg DAILY PRN Administration CONSTIPATION Carbidopa/Levodopa 1 tab 11/23/17 17:00 11/25/17 20:57 Sinemet 25/100 Tab(*) PO 1 tab QID EMILY Administration Diazepam 10 mg 11/24/17 16:16 Valium Tab(*) PO Q8H PRN ANXIETY Docusate Sodium 100 mg 11/23/17 21:00 11/25/17 21:02 Colace Cap* PO Not Given BID EMILY Heparin Sodium (Porcine) 5,000 units 11/23/17 14:00 11/25/17 21:05 Heparin Vial(*) SUBCUT 5,000 units Q8HR EMILY Administration Magnesium Hydroxide 30 ml 11/23/17 13:18 11/24/17 07:43 Milk Of Magnesia Liq* PO 30 ml Q6H PRN Administration CONSTIPATION Metoprolol Tartrate 25 mg 11/23/17 21:00 11/25/17 20:57 Lopressor Tab* PO 25 mg BID EMILY Administration Mometasone Furoate/Formoterol Fumar 2 puff 11/23/17 21:00 11/25/17 21:08 Dulera 100/5 Mdi* INH 2 puff BID EMILY Administration Omeprazole 20 mg 11/24/17 06:00 11/25/17 05:09 Prilosec Cap* PO 20 mg 0600 EMILY Administration Oxycodone/Acetaminophen 1 tab 11/23/17 13:37 11/25/17 20:58 Percocet 5/325 Tab* PO 1 tab Q4H PRN Administration PAIN - MODERATE TO SEVERE Prochlorperazine 10 mg 11/23/17 18:31 11/25/17 15:07 Compazine Tab* PO 10 mg Q8H PRN Administration NAUSEA Senna 2 tab 11/23/17 13:18 11/24/17 21:17 Senokot Tab* PO 2 tab BEDTIME PRN Administration CONSTIPATION Sodium Biphosphate/Sodium Phosphate 1 bottle 11/24/17 10:26 Fleet Enema* [place] DAILY PRN CONSTIPATION Trazodone HCl 50 mg 11/23/17 21:00 11/25/17 21:02 Desyrel Tab* PO Not Given BEDTIME EMILY Vital Signs: Vital Signs Temp Pulse Resp BP Pulse Ox 98.2 F 80 18 139/56 93 11/25/17 16:08 11/25/17 16:08 11/25/17 22:17 11/25/17 16:08 11/25/17 16:33 Lab Results: Laboratory Results - last 24 hr 11/25/17 11/25/17 05:35 05:35 WBC 14.1 H RBC 4.59 Hgb 14.4 Hct 41 L MCV 90 MCH 32 H MCHC 35 RDW 14 Plt Count 362 MPV 8 Neut % (Auto) 84.2 H Lymph % (Auto) 8.2 L [place] % (Auto) 7.5 H Eos % (Auto) 0 Baso % (Auto) 0.1 Absolute Neuts (auto) 11.9 H Absolute Lymphs (auto) 1.2 Absolute Monos (auto) 1.1 H Absolute Eos (auto) 0 Absolute Basos (auto) 0 Absolute Nucleated RBC 0 Nucleated RBC % 0 Sodium 134 Potassium 4.0 Chloride 100 L Carbon Dioxide 27 Anion Gap 7 BUN 22 Creatinine 0.60 L Est GFR ( Amer) 169.8 Est GFR (Non-Af Amer) 132.1 BUN/Creatinine Ratio 36.7 H Glucose 144 H Calcium 9.7 Total Bilirubin 0.60 AST 20 ALT 16 Alkaline Phosphatase 51 Total Protein 6.9 Albumin 3.8 Globulin 3.1 Albumin/Globulin Ratio 1.2 Exam: HEENT: EOMI LUNGS: Clear HEART: reg rhythm ABDOMEN: soft, distended. +BS EXTREMITIES: Resting tremor NEUROLOGIC: some rigidity. Assessment/Plan: 1. Parkinson's Disease: Sinemet. PT/OT. 2. Nausea: compazine PRN 3. Elevated WBC: Asymptomatic. Will recheck in am 4. Constipation: D/C Lactulose. Had BMs. Will resume Amitiza Thursday or Symproic 5. COPD: Dulera 6. DVT Prophylaxis: Heparin S/Q 7. Advanced Directives: Full code 8. Back pain: Percocet 9. Anxiety: Diazepam PRN 10. CAD: Lipitor/ASA 11/25/17 22:29
[2017-11-26 05:22] LABS: ABS Basophils 0.1 10^3/ul (0-0.2); ABS Eosinophils 0 10^3/ul (0-0.6); ABS Monocytes 0.9 10^3/ul (0-0.8); ABS Neutrophils 8.6 10^3/ul (1.5-7.7); ABS Nucleated RBC 0 10^3/ul; Eosinophil % 0.2 % (0-6); Hematocrit 39 % (42-52); Hemoglobin 13.3 g/dl (14.0-18.0); Lymphocyte % 16.8 % (25-47); Mean Corpuscular HGB Conc 35 g/dl (31-36); Mean Corpuscular Hemoglobin 31 pg (27-31); Mean Corpuscular Volume 91 fL (80-94); Mean Platelet Volume 7 um3 (7.4-10.4); Nucleated Red Blood Cells % 0; Platelet Count 314 10^3/ul (150-450); Red Blood Count 4.25 10^6/ul (4.0-5.4); Red Cell Distribution Width 14 % (10.5-15); White Blood Count 11.6 10^3/ul (3.5-10.8)
[2017-11-26] MEDS: Omeprazole CAP* 20 MG PO SCH (05:45)
[2017-11-26] MEDS: Heparin VIAL(*) 5000 UNITS/ML VIAL (FIVE THOUSAND) SUBCUT SCH ×3 (05:45→21:15)
[2017-11-26] MEDS: Docusate CAP* 100 MG PO SCH ×2 (08:29→21:12)
[2017-11-26] MEDS: Metoprolol Tartrate TAB* 25 MG PO SCH ×2 (08:29→21:04)
[2017-11-26] MEDS: CARBIDOPA PO SCH ×4 (08:29→21:04)
[2017-11-26] MEDS: LEVODOP PO SCH ×4 (08:29→21:04)
[2017-11-26] MEDS: Aspirin TAB* 325 MG PO SCH (08:29)
[2017-11-26] MEDS: oxyCODONE/Acetamin 5/325 MG* TAB PO PRN ×3 (08:29→19:02)
[2017-11-26] MEDS: Mometasone/Formoter 100/5 MDI INH SCH ×2 (08:32→21:08)
[2017-11-26] MEDS: Diazepam TAB(*) 5 MG PO PRN (10:14)
[2017-11-26] MEDS: Prochlorperazine TAB* 10 MG PO PRN (15:06)
--- NOTE | 2017-11-26 16:39 | PN ---
Progress Note Date of Service: 11/26/17 Note: TIMOTHY DELGADO was visited. Therapy notes read and reviewed. BMs have slowed. Will resume Miralax tomorrow. He feels like therapy increases his pain. Current Medications: Active Medications Generic Name Dose Route Start Last Admin Trade Name Freq PRN Reason Stop Dose Admin Acetaminophen 650 mg 11/23/17 13:18 Tylenol Tab* PO Q6H PRN FEVER/HEADACHE Aspirin 325 mg 11/24/17 09:00 11/26/17 08:29 Aspirin Tab* PO 325 mg DAILY EMILY Administration Atorvastatin Calcium 20 mg 11/23/17 17:00 11/25/17 17:07 Lipitor* PO 20 mg 1700 EMILY Administration Bisacodyl 10 mg 11/24/17 13:25 11/24/17 14:42 Dulcolax Supp* [place] 10 mg DAILY PRN Administration CONSTIPATION Carbidopa/Levodopa 1 tab 11/23/17 17:00 11/26/17 12:52 Sinemet 25/100 Tab(*) PO 1 tab QID EMILY Administration Diazepam 10 mg 11/24/17 16:16 11/26/17 10:14 Valium Tab(*) PO 10 mg Q8H PRN Administration ANXIETY Docusate Sodium 100 mg 11/23/17 21:00 11/26/17 08:29 Colace Cap* PO Not Given BID [facility] Heparin Sodium (Porcine) 5,000 units 11/23/17 14:00 11/26/17 14:43 Heparin Vial(*) SUBCUT 5,000 units Q8HR EMILY Administration Magnesium Hydroxide 30 ml 11/23/17 13:18 11/24/17 07:43 Milk Of Magnesia Liq* PO 30 ml Q6H PRN Administration CONSTIPATION Metoprolol Tartrate 25 mg 11/23/17 21:00 11/26/17 08:29 Lopressor Tab* PO 25 mg BID EMILY Administration Mometasone Furoate/Formoterol Fumar 2 puff 11/23/17 21:00 11/26/17 08:32 Dulera 100/5 Mdi* INH 2 puff BID EMILY Administration Omeprazole 20 mg 11/24/17 06:00 11/26/17 05:45 Prilosec Cap* PO 20 mg 0600 EMILY Administration Oxycodone/Acetaminophen 1 tab 11/23/17 13:37 11/26/17 12:52 Percocet 5/325 Tab* PO 1 tab Q4H PRN Administration PAIN - MODERATE TO SEVERE Prochlorperazine 10 mg 11/23/17 18:31 11/26/17 15:06 Compazine Tab* PO 10 mg Q8H PRN Administration NAUSEA Senna 2 tab 11/23/17 13:18 11/24/17 21:17 Senokot Tab* PO 2 tab BEDTIME PRN Administration CONSTIPATION Sodium Biphosphate/Sodium Phosphate 1 bottle 11/24/17 10:26 Fleet Enema* [place] DAILY PRN CONSTIPATION Trazodone HCl 50 mg 11/23/17 21:00 11/25/17 21:02 Desyrel Tab* PO Not Given BEDTIME EMILY Vital Signs: Vital Signs Temp Pulse Resp BP Pulse Ox 97.7 F 65 16 138/97 94 11/26/17 15:42 11/26/17 15:42 11/26/17 15:42 11/26/17 15:42 11/26/17 15:42 Lab Results: Laboratory Results - last 24 hr 11/26/17 05:17 WBC 11.6 H RBC 4.25 Hgb 13.3 L Hct 39 L MCV 91 MCH 31 MCHC 35 RDW 14 Plt Count 314 MPV 7 L Neut % (Auto) 73.9 Lymph % (Auto) 16.8 L [place] % (Auto) 8.1 H Eos % (Auto) 0.2 Baso % (Auto) 1.0 Absolute Neuts (auto) 8.6 H Absolute Lymphs (auto) 2.0 Absolute Monos (auto) 0.9 H Absolute Eos (auto) 0 Absolute Basos (auto) 0.1 Absolute Nucleated RBC 0 Nucleated RBC % 0 Exam: HEENT: EOMI LUNGS: Clear HEART: reg rhythm ABDOMEN: soft, distended. +BS EXTREMITIES: Resting tremor NEUROLOGIC: some rigidity. Assessment/Plan: 1. Parkinson's Disease: Sinemet. PT/OT. 2. Nausea: compazine PRN 3. Elevated WBC: Asymptomatic. Will recheck in am 4. Constipation: D/C Lactulose. Had BMs. Will resume Miralax 5. COPD: Dulera 6. DVT Prophylaxis: Heparin S/Q 7. Advanced Directives: Full code 8. Back pain: Percocet 9. Anxiety: Diazepam PRN 10. CAD: Lipitor/ASA 11/26/17 16:39
[2017-11-26] MEDS: Atorvastatin* 20 MG TAB PO SCH (17:02)
[2017-11-26] MEDS: Senna TAB PO SCH (21:04)
[2017-11-26] MEDS: traZODone TAB* 50 MG TAB PO SCH (21:05)
[2017-11-27] MEDS: Acetaminophen TAB* 325 MG PO PRN (05:39)
[2017-11-27] MEDS: Omeprazole CAP* 20 MG PO SCH (05:39)
[2017-11-27] MEDS: Heparin VIAL(*) 5000 UNITS/ML VIAL (FIVE THOUSAND) SUBCUT SCH ×3 (05:43→21:50)
[2017-11-27] MEDS: LEVODOP PO SCH ×4 (08:23→21:47)
[2017-11-27] MEDS: Metoprolol Tartrate TAB* 25 MG PO SCH ×2 (08:23→23:31)
[2017-11-27] MEDS: CARBIDOPA PO SCH ×4 (08:23→21:47)
[2017-11-27] MEDS: Aspirin TAB* 325 MG PO SCH (08:23)
[2017-11-27] MEDS: Docusate CAP* 100 MG PO SCH ×2 (08:23→21:46)
[2017-11-27] MEDS: Polyethylene Glycol 3350* 17 GM PACKET PO SCH (08:24)
[2017-11-27] MEDS: Mometasone/Formoter 100/5 MDI INH SCH ×2 (08:24→20:08)
[2017-11-27] MEDS: oxyCODONE/Acetamin 5/325 MG* TAB PO PRN ×3 (08:52→16:58)
[2017-11-27] MEDS: Diazepam TAB(*) 5 MG PO PRN (12:41)
[2017-11-27] MEDS: Prochlorperazine TAB* 10 MG PO PRN (14:12)
[2017-11-27] MEDS: Atorvastatin* 20 MG TAB PO SCH (16:58)
--- NOTE | 2017-11-27 17:04 | PN ---
Progress Note Date of Service: 11/27/17 Note: TIMOTHY DELGADO was visited. Therapy notes read and reviewed. Bowel movements are more regular, less watery. he still complains about the therapy. Current Medications: Active Medications Generic Name Dose Route Start Last Admin Trade Name Freq PRN Reason Stop Dose Admin Acetaminophen 650 mg 11/23/17 13:18 11/27/17 05:39 Tylenol Tab* PO 650 mg Q6H PRN Administration FEVER/HEADACHE Aspirin 325 mg 11/24/17 09:00 11/27/17 08:23 Aspirin Tab* PO 325 mg DAILY EMILY Administration Atorvastatin Calcium 20 mg 11/23/17 17:00 11/27/17 16:58 Lipitor* PO 20 mg 1700 EMILY Administration Bisacodyl 10 mg 11/24/17 13:25 11/24/17 14:42 Dulcolax Supp* [place] 10 mg DAILY PRN Administration CONSTIPATION Carbidopa/Levodopa 1 tab 11/23/17 17:00 11/27/17 16:58 Sinemet 25/100 Tab(*) PO 1 tab QID EMILY Administration Diazepam 10 mg 11/24/17 16:16 11/27/17 12:41 Valium Tab(*) PO 10 mg Q8H PRN Administration ANXIETY Docusate Sodium 100 mg 11/23/17 21:00 11/27/17 08:23 Colace Cap* PO 100 mg BID EMILY Administration Heparin Sodium (Porcine) 5,000 units 11/23/17 14:00 11/27/17 12:39 Heparin Vial(*) SUBCUT 5,000 units Q8HR EMILY Administration Magnesium Hydroxide 30 ml 11/23/17 13:18 11/24/17 07:43 Milk Of Magnesia Liq* PO 30 ml Q6H PRN Administration CONSTIPATION Metoprolol Tartrate 25 mg 11/23/17 21:00 11/27/17 08:23 Lopressor Tab* PO 25 mg BID EMILY Administration Mometasone Furoate/Formoterol Fumar 2 puff 11/23/17 21:00 11/27/17 08:24 Dulera 100/5 Mdi* INH 2 puff BID EMILY Administration Omeprazole 20 mg 11/24/17 06:00 11/27/17 05:39 Prilosec Cap* PO 20 mg 0600 EMILY Administration Oxycodone/Acetaminophen 1 tab 11/23/17 13:37 11/27/17 16:58 Percocet 5/325 Tab* PO 1 tab Q4H PRN Administration PAIN - MODERATE TO SEVERE Polyethylene Glycol/Electrolytes 17 gm 11/27/17 09:00 11/27/17 08:24 Miralax* PO 17 gm DAILY EMILY Administration Prochlorperazine 10 mg 11/23/17 18:31 11/27/17 14:12 Compazine Tab* PO 10 mg Q8H PRN Administration NAUSEA Senna 2 tab 11/26/17 21:00 11/26/17 21:04 Senokot Tab* PO 2 tab BEDTIME EMILY Administration Sodium Biphosphate/Sodium Phosphate 1 bottle 11/24/17 10:26 Fleet Enema* [place] DAILY PRN CONSTIPATION Trazodone HCl 50 mg 11/23/17 21:00 11/26/17 21:05 Desyrel Tab* PO 50 mg BEDTIME EMILY Administration Vital Signs: Vital Signs Temp Pulse Resp BP Pulse Ox 97.5 F 73 14 112/62 95 11/27/17 16:04 11/27/17 16:04 11/27/17 16:58 11/27/17 16:47 11/27/17 16:04 Exam: HEENT: EOMI LUNGS: Clear HEART: reg rhythm ABDOMEN: soft, distended. +BS EXTREMITIES: Resting tremor NEUROLOGIC: some rigidity. Assessment/Plan: 1. Parkinson's Disease: Sinemet. PT/OT. 2. Nausea: compazine PRN 3. Elevated WBC: Asymptomatic. 4. Constipation: D/C Lactulose. Had BMs. Resumed Miralax 5. COPD: Dulera 6. DVT Prophylaxis: Heparin S/Q 7. Advanced Directives: Full code 8. Back pain: Percocet 9. Anxiety: Diazepam PRN 10. CAD: Lipitor/ASA 11/27/17 17:04
[2017-11-27] MEDS: Senna TAB PO SCH (21:47)
[2017-11-27] MEDS: traZODone TAB* 50 MG TAB PO SCH (21:48)
[2017-11-28] MEDS: Heparin VIAL(*) 5000 UNITS/ML VIAL (FIVE THOUSAND) SUBCUT SCH ×3 (06:13→22:14)
[2017-11-28] MEDS: Omeprazole CAP* 20 MG PO SCH (06:19)
[2017-11-28] MEDS: oxyCODONE/Acetamin 5/325 MG* TAB PO PRN ×2 (06:20→11:25)
[2017-11-28] MEDS: Aspirin TAB* 325 MG PO SCH (08:55)
[2017-11-28] MEDS: CARBIDOPA PO SCH ×4 (08:55→20:53)
[2017-11-28] MEDS: Metoprolol Tartrate TAB* 25 MG PO SCH ×2 (08:55→21:10)
[2017-11-28] MEDS: LEVODOP PO SCH ×4 (08:55→20:53)
[2017-11-28] MEDS: Docusate CAP* 100 MG PO SCH ×2 (08:55→21:10)
[2017-11-28] MEDS: Mometasone/Formoter 100/5 MDI INH SCH ×2 (08:56→20:43)
[2017-11-28] MEDS: Polyethylene Glycol 3350* 17 GM PACKET PO SCH (08:56)
[2017-11-28] MEDS: Diazepam TAB(*) 5 MG PO PRN (12:29)
[2017-11-28] MEDS: Acetaminophen TAB* 325 MG PO PRN (15:32)
--- NOTE | 2017-11-28 16:03 | PN ---
Progress Note Date of Service: 11/28/17 Note: TIMOTHY DELGADO was visited. Therapy notes read and reviewed.He has a slight cough today. Also says therapy causes him more pain. I explained we are trying to balance analgesia and constipation Current Medications: Active Medications Generic Name Dose Route Start Last Admin Trade Name Freq PRN Reason Stop Dose Admin Acetaminophen 650 mg 11/23/17 13:18 11/28/17 15:32 Tylenol Tab* PO 650 mg Q6H PRN Administration FEVER/HEADACHE Aspirin 325 mg 11/24/17 09:00 11/28/17 08:55 Aspirin Tab* PO 325 mg DAILY EMILY Administration Atorvastatin Calcium 20 mg 11/23/17 17:00 11/27/17 16:58 Lipitor* PO 20 mg 1700 EMILY Administration Bisacodyl 10 mg 11/24/17 13:25 11/24/17 14:42 Dulcolax Supp* [place] 10 mg DAILY PRN Administration CONSTIPATION Carbidopa/Levodopa 1 tab 11/23/17 17:00 11/28/17 12:29 Sinemet 25/100 Tab(*) PO 1 tab QID EMILY Administration Diazepam 10 mg 11/24/17 16:16 11/28/17 12:29 Valium Tab(*) PO 10 mg Q8H PRN Administration ANXIETY Docusate Sodium 100 mg 11/23/17 21:00 11/28/17 08:55 Colace Cap* PO 100 mg BID EMILY Administration Heparin Sodium (Porcine) 5,000 units 11/23/17 14:00 11/28/17 14:31 Heparin Vial(*) SUBCUT 5,000 units Q8HR EMILY Administration Magnesium Hydroxide 30 ml 11/23/17 13:18 11/24/17 07:43 Milk Of Magnesia Liq* PO 30 ml Q6H PRN Administration CONSTIPATION Metoprolol Tartrate 25 mg 11/23/17 21:00 11/28/17 08:55 Lopressor Tab* PO 25 mg BID EMILY Administration Mometasone Furoate/Formoterol Fumar 2 puff 11/23/17 21:00 11/28/17 08:56 Dulera 100/5 Mdi* INH 2 puff BID EMILY Administration Omeprazole 20 mg 11/24/17 06:00 11/28/17 06:19 Prilosec Cap* PO 20 mg 0600 EMILY Administration Oxycodone/Acetaminophen 1 tab 11/23/17 13:37 11/28/17 11:25 Percocet 5/325 Tab* PO 1 tab Q4H PRN Administration PAIN - MODERATE TO SEVERE Polyethylene Glycol/Electrolytes 17 gm 11/27/17 09:00 11/28/17 08:56 Miralax* PO 17 gm DAILY EMILY Administration Prochlorperazine 10 mg 11/23/17 18:31 11/27/17 14:12 Compazine Tab* PO 10 mg Q8H PRN Administration NAUSEA Senna 2 tab 11/26/17 21:00 11/27/17 21:47 Senokot Tab* PO 2 tab BEDTIME EMILY Administration Sodium Biphosphate/Sodium Phosphate 1 bottle 11/24/17 10:26 Fleet Enema* [place] DAILY PRN CONSTIPATION Trazodone HCl 50 mg 11/23/17 21:00 11/27/17 21:48 Desyrel Tab* PO 50 mg BEDTIME EMILY Administration Vital Signs: Vital Signs Temp Pulse Resp BP Pulse Ox 97.8 F 71 16 137/62 96 11/28/17 15:29 11/28/17 15:27 11/28/17 15:27 11/28/17 15:27 11/28/17 15:27 Exam: HEENT: EOMI LUNGS: Clear HEART: reg rhythm ABDOMEN: soft, distended. +BS EXTREMITIES: Resting tremor NEUROLOGIC: some rigidity. Assessment/Plan: 1. Parkinson's Disease: Sinemet. PT/OT. 2. Nausea: compazine PRN 3. Elevated WBC: Asymptomatic. 4. Constipation: Had BMs yesterday. Resumed Miralax 5. COPD: Dulera 6. DVT Prophylaxis: Heparin S/Q 7. Advanced Directives: Full code 8. Back pain: Percocet 9. Anxiety: Diazepam PRN 10. CAD: Lipitor/ASA 11/28/17 16:04
[2017-11-28] MEDS: Atorvastatin* 20 MG TAB PO SCH (17:14)
[2017-11-28] MEDS: Benzocaine/Menthol LOZ* 1 LOZENGE PO PRN (19:32)
[2017-11-28] MEDS: traZODone TAB* 50 MG TAB PO SCH (20:53)
[2017-11-28] MEDS: Senna TAB PO SCH (21:05)
[2017-11-29] MEDS: oxyCODONE/Acetamin 5/325 MG* TAB PO PRN ×3 (04:48→12:45)
[2017-11-29] MEDS: Heparin VIAL(*) 5000 UNITS/ML VIAL (FIVE THOUSAND) SUBCUT SCH ×3 (04:48→21:09)
[2017-11-29] MEDS: Omeprazole CAP* 20 MG PO SCH (04:48)
[2017-11-29] MEDS: Aspirin TAB* 325 MG PO SCH (08:38)
[2017-11-29] MEDS: Docusate CAP* 100 MG PO SCH ×2 (08:38→21:07)
[2017-11-29] MEDS: Metoprolol Tartrate TAB* 25 MG PO SCH ×2 (08:38→21:07)
[2017-11-29] MEDS: Polyethylene Glycol 3350* 17 GM PACKET PO SCH (08:38)
[2017-11-29] MEDS: LEVODOP PO SCH ×4 (08:38→21:07)
[2017-11-29] MEDS: CARBIDOPA PO SCH ×4 (08:38→21:07)
[2017-11-29] MEDS: Benzocaine/Menthol LOZ* 1 LOZENGE PO PRN ×2 (09:04→12:53)
[2017-11-29] MEDS: Diazepam TAB(*) 5 MG PO PRN (09:14)
[2017-11-29] MEDS: Mometasone/Formoter 100/5 MDI INH SCH ×2 (11:49→21:07)
[2017-11-29] MEDS: Prochlorperazine TAB* 10 MG PO PRN ×2 (12:53→21:07)
--- NOTE | 2017-11-29 15:45 | PN ---
Progress Note Date of Service: 11/29/17 Note: TIMOTHY DELGADO was visited. Nursing notes read and reviewed. He complains of pain all over his body. He says he ahs fibromyalgia and this happens sometimes. He took Lyrica years ago but it stopped working. Current Medications: Active Medications Generic Name Dose Route Start Last Admin Trade Name Freq PRN Reason Stop Dose Admin Acetaminophen 650 mg 11/23/17 13:18 11/28/17 15:32 Tylenol Tab* PO 650 mg Q6H PRN Administration FEVER/HEADACHE Aspirin 325 mg 11/24/17 09:00 11/29/17 08:38 Aspirin Tab* PO 325 mg DAILY EMILY Administration Atorvastatin Calcium 20 mg 11/23/17 17:00 11/28/17 17:14 Lipitor* PO 20 mg 1700 EMILY Administration Bisacodyl 10 mg 11/24/17 13:25 11/24/17 14:42 Dulcolax Supp* [place] 10 mg DAILY PRN Administration CONSTIPATION Carbidopa/Levodopa 1 tab 11/23/17 17:00 11/29/17 12:47 Sinemet 25/100 Tab(*) PO 1 tab QID EMILY Administration Diazepam 10 mg 11/24/17 16:16 11/29/17 09:14 Valium Tab(*) PO 10 mg Q8H PRN Administration ANXIETY Docusate Sodium 100 mg 11/23/17 21:00 11/29/17 08:38 Colace Cap* PO 100 mg BID EMILY Administration Heparin Sodium (Porcine) 5,000 units 11/23/17 14:00 11/29/17 14:54 Heparin Vial(*) SUBCUT 5,000 units Q8HR EMILY Administration Magnesium Hydroxide 30 ml 11/23/17 13:18 11/24/17 07:43 Milk Of Magnesia Liq* PO 30 ml Q6H PRN Administration CONSTIPATION Metoprolol Tartrate 25 mg 11/23/17 21:00 11/29/17 08:38 Lopressor Tab* PO 25 mg BID EMILY Administration Mometasone Furoate/Formoterol Fumar 2 puff 11/23/17 21:00 11/29/17 11:49 Dulera 100/5 Mdi* INH 2 puff BID EMILY Administration Omeprazole 20 mg 11/24/17 06:00 11/29/17 04:48 Prilosec Cap* PO 20 mg 0600 EMILY Administration Oxycodone/Acetaminophen 1 tab 11/23/17 13:37 11/29/17 12:45 Percocet 5/325 Tab* PO 1 tab Q4H PRN Administration PAIN - MODERATE TO SEVERE Polyethylene Glycol/Electrolytes 17 gm 11/27/17 09:00 11/29/17 08:38 Miralax* PO 17 gm DAILY EMILY Administration Pregabalin 75 mg 11/29/17 21:00 Lyrica Cap(*) PO BID EMILY Prochlorperazine 10 mg 11/23/17 18:31 11/29/17 12:53 Compazine Tab* PO 10 mg Q8H PRN Administration NAUSEA Senna 2 tab 11/26/17 21:00 11/28/17 21:05 Senokot Tab* PO 2 tab BEDTIME EMILY Administration Sodium Biphosphate/Sodium Phosphate 1 bottle 11/24/17 10:26 Fleet Enema* [place] DAILY PRN CONSTIPATION Throat Lozenges 1 eric 11/28/17 16:04 11/29/17 12:53 Chloraseptic Eric* PO 1 eric Q6H PRN Administration COUGH Trazodone HCl 50 mg 11/23/17 21:00 11/28/17 20:53 Desyrel Tab* PO 50 mg BEDTIME EMILY Administration Vital Signs: Vital Signs Temp Pulse Resp BP Pulse Ox 97.8 F 78 16 127/59 95 11/29/17 04:49 11/29/17 04:49 11/29/17 12:45 11/29/17 04:49 11/29/17 08:00 Exam: HEENT: EOMI LUNGS: Clear HEART: reg rhythm ABDOMEN: soft, distended. +BS EXTREMITIES: Resting tremor NEUROLOGIC: some rigidity. Assessment/Plan: 1. Parkinson's Disease: Sinemet. PT/OT. 2. Nausea: compazine PRN 3. Elevated WBC: Asymptomatic. 4. Constipation: Had BMs yesterday. Resumed Miralax 5. COPD: Dulera 6. DVT Prophylaxis: Heparin S/Q 7. Advanced Directives: Full code 8. Back pain: Percocet 9. Anxiety: Diazepam PRN 10. CAD: Lipitor/ASA 11. Fibromyalgia: Try Lyrica. 11/29/17 15:46
[2017-11-29] MEDS: Atorvastatin* 20 MG TAB PO SCH (16:51)
[2017-11-29] MEDS: Pregabalin CAP(*) 25 MG PO SCH (21:06)
[2017-11-29] MEDS: traZODone TAB* 50 MG TAB PO SCH (21:07)
[2017-11-29] MEDS: Senna TAB PO SCH (21:08)
[2017-11-30] MEDS: Heparin VIAL(*) 5000 UNITS/ML VIAL (FIVE THOUSAND) SUBCUT SCH ×3 (05:37→21:02)
[2017-11-30] MEDS: oxyCODONE/Acetamin 5/325 MG* TAB PO PRN ×3 (05:38→14:24)
[2017-11-30] MEDS: Omeprazole CAP* 20 MG PO SCH (05:38)
[2017-11-30] MEDS: LEVODOP PO SCH ×4 (09:52→20:57)
[2017-11-30] MEDS: CARBIDOPA PO SCH ×4 (09:52→20:57)
[2017-11-30] MEDS: Docusate CAP* 100 MG PO SCH ×2 (09:52→20:57)
[2017-11-30] MEDS: Pregabalin CAP(*) 25 MG PO SCH ×2 (09:52→20:56)
[2017-11-30] MEDS: Aspirin TAB* 325 MG PO SCH (09:52)
[2017-11-30] MEDS: Polyethylene Glycol 3350* 17 GM PACKET PO SCH (09:53)
[2017-11-30] MEDS: Mometasone/Formoter 100/5 MDI INH SCH ×2 (09:53→19:59)
[2017-11-30] MEDS: Metoprolol Tartrate TAB* 25 MG PO SCH ×2 (09:53→20:57)
[2017-11-30] MEDS: Benzocaine/Menthol LOZ* 1 LOZENGE PO PRN (10:00)
[2017-11-30] MEDS: Diazepam TAB(*) 5 MG PO PRN (12:46)
[2017-11-30] MEDS: Prochlorperazine TAB* 10 MG PO PRN (14:30)
--- NOTE | 2017-11-30 16:05 | PN ---
Progress Note Date of Service: 11/30/17 Note: TIMOTHY DELGADO was visited. Therapy notes read and reviewed. He was started on Lyrica last night. It may have been helpful. Seems to be resting now. Current Medications: Active Medications Generic Name Dose Route Start Last Admin Trade Name Freq PRN Reason Stop Dose Admin Acetaminophen 650 mg 11/23/17 13:18 11/28/17 15:32 Tylenol Tab* PO 650 mg Q6H PRN Administration FEVER/HEADACHE Aspirin 325 mg 11/24/17 09:00 11/30/17 09:52 Aspirin Tab* PO 325 mg DAILY EMILY Administration Atorvastatin Calcium 20 mg 11/23/17 17:00 11/29/17 16:51 Lipitor* PO 20 mg 1700 EMILY Administration Bisacodyl 10 mg 11/24/17 13:25 11/24/17 14:42 Dulcolax Supp* [place] 10 mg DAILY PRN Administration CONSTIPATION Carbidopa/Levodopa 1 tab 11/23/17 17:00 11/30/17 14:25 Sinemet 25/100 Tab(*) PO 1 tab QID EMILY Administration Diazepam 10 mg 11/24/17 16:16 11/30/17 12:46 Valium Tab(*) PO 10 mg Q8H PRN Administration ANXIETY Docusate Sodium 100 mg 11/23/17 21:00 11/30/17 09:52 Colace Cap* PO 100 mg BID EMILY Administration Heparin Sodium (Porcine) 5,000 units 11/23/17 14:00 11/30/17 14:25 Heparin Vial(*) SUBCUT 5,000 units Q8HR EMILY Administration Magnesium Hydroxide 30 ml 11/23/17 13:18 11/24/17 07:43 Milk Of Magnesia Liq* PO 30 ml Q6H PRN Administration CONSTIPATION Metoprolol Tartrate 25 mg 11/23/17 21:00 11/30/17 09:53 Lopressor Tab* PO 25 mg BID EMILY Administration Mometasone Furoate/Formoterol Fumar 2 puff 11/23/17 21:00 11/30/17 09:53 Dulera 100/5 Mdi* INH 2 puff BID EMILY Administration Omeprazole 20 mg 11/24/17 06:00 11/30/17 05:38 Prilosec Cap* PO 20 mg 0600 EMILY Administration Oxycodone/Acetaminophen 1 tab 11/23/17 13:37 11/30/17 14:24 Percocet 5/325 Tab* PO 1 tab Q4H PRN Administration PAIN - MODERATE TO SEVERE Polyethylene Glycol/Electrolytes 17 gm 11/27/17 09:00 11/30/17 09:53 Miralax* PO 17 gm DAILY EMILY Administration Pregabalin 75 mg 11/29/17 21:00 11/30/17 09:52 Lyrica Cap(*) PO 75 mg BID EMILY Administration Prochlorperazine 10 mg 11/23/17 18:31 11/30/17 14:30 Compazine Tab* PO 10 mg Q8H PRN Administration NAUSEA Senna 2 tab 11/26/17 21:00 11/29/17 21:08 Senokot Tab* PO 2 tab BEDTIME EMILY Administration Sodium Biphosphate/Sodium Phosphate 1 bottle 11/24/17 10:26 Fleet Enema* [place] DAILY PRN CONSTIPATION Throat Lozenges 1 eric 11/28/17 16:04 11/30/17 10:00 Chloraseptic Eric* PO 1 eric Q6H PRN Administration COUGH Trazodone HCl 50 mg 11/23/17 21:00 11/29/17 21:07 Desyrel Tab* PO 50 mg BEDTIME EMILY Administration Vital Signs: Vital Signs Temp Pulse Resp BP Pulse Ox 97.8 F 65 16 112/63 95 11/30/17 05:35 11/30/17 05:35 11/30/17 14:24 11/30/17 05:35 11/30/17 05:35 Exam: HEENT: EOMI LUNGS: Clear HEART: reg rhythm ABDOMEN: soft, distended. +BS EXTREMITIES: Resting tremor NEUROLOGIC: some rigidity. Assessment/Plan: 1. Parkinson's Disease: Sinemet. PT/OT. 2. Nausea: compazine PRN 3. Elevated WBC: Asymptomatic. 4. Constipation: Had BMs yesterday. Resumed Miralax 5. COPD: Dulera 6. DVT Prophylaxis: Heparin S/Q 7. Advanced Directives: Full code 8. Back pain: Percocet 9. Anxiety: Diazepam PRN 10. CAD: Lipitor/ASA 11. Fibromyalgia: On Lyrica. 11/30/17 16:05
[2017-11-30] MEDS: Acetaminophen TAB* 325 MG PO PRN (16:44)
[2017-11-30] MEDS: Atorvastatin* 20 MG TAB PO SCH (16:59)
[2017-11-30] MEDS: Senna TAB PO SCH (20:57)
[2017-11-30] MEDS: traZODone TAB* 50 MG TAB PO SCH (21:01)
[2017-12-01] MEDS: Heparin VIAL(*) 5000 UNITS/ML VIAL (FIVE THOUSAND) SUBCUT SCH ×3 (05:56→21:47)
[2017-12-01] MEDS: Omeprazole CAP* 20 MG PO SCH (05:58)
[2017-12-01] MEDS: Mometasone/Formoter 100/5 MDI INH SCH ×2 (08:06→21:47)
[2017-12-01] MEDS: Polyethylene Glycol 3350* 17 GM PACKET PO SCH (08:06)
[2017-12-01] MEDS: Aspirin TAB* 325 MG PO SCH (08:06)
[2017-12-01] MEDS: Pregabalin CAP(*) 25 MG PO SCH ×2 (08:06→21:46)
[2017-12-01] MEDS: LEVODOP PO SCH ×4 (08:07→21:52)
[2017-12-01] MEDS: Docusate CAP* 100 MG PO SCH ×2 (08:07→21:47)
[2017-12-01] MEDS: Metoprolol Tartrate TAB* 25 MG PO SCH ×2 (08:07→21:46)
[2017-12-01] MEDS: CARBIDOPA PO SCH ×4 (08:07→21:52)
[2017-12-01] MEDS: Diazepam TAB(*) 5 MG PO PRN (10:47)
[2017-12-01] MEDS: oxyCODONE/Acetamin 5/325 MG* TAB PO PRN ×2 (10:53→15:41)
--- NOTE | 2017-12-01 12:45 | PMRUTEAM ---
PMRU: Goals Current Status: Nursing: Current Status Skin Deviations [Buttocks] Other Skin Deviations [Coccyx] Other Skin Deviation Description [ site of healed pressure ulcer; discoloratioin; Buttocks] blanchable Skin Deviation Description [ healed Coccyx] Physical Therapy: Current Status Bed Mobility Assistance Not Tested Transfer Moblility Assistance Contact Guard Assist Transfer/Bed Mobility Rolling Walker Recommended Devices Ambulation Assistance Min Assist Ambulation Assistive Devices Rolling Walker Number of Feet Patient 215 Ambulated Stairs Assistance Min Assist Stairs Recommended Devices Two Rails Number of Stairs 2 (6inch) x 3 bouts Occupational Therapy: Current Status Upper Body Dressing Min Assist Lower Body Dressing Max Asst Bathing Mod Assist Toileting Total Assist Toilet Transfer Contact Guard Assist Shower Transfer Mod Assist,2 Person Assist Shower Transfer Progress not assesed. Pt. declines Eating Supervision Rec Therapy: Current Status Summary of Assessment and RT assessment complete and pt. is aware of RT Clinical Impression services. Pt. has been resting or with his visitor during the afternoons. Treatment Goals Pt. will engage in recreation and leisure activities while on the unit. Treatment Plan Provide RT services and encourage involvement. Social Work: Current Status Discharge Plan return home with home care svs and family support Potential for Family Training pt's is involved and attentive Anticipated Discharge Home Destination Discharge With home care svs and family support Nutrition: Current Status Monitoring po intake averaging approx 66% of meals; regular diet appropriate. Offered Ensure Enlive w/each meal as well. BMs near daily, so no c/o constipation. BG 144 per labs 11/25; will follow w/ lab draw 12/02. Otherwise, appears to be meeting goals as outlined below. Goals: Physical Therapy: Initial Goals Bed Mobility Assistance Independent Transfer Mobility Assistance Independent Transfer/Bed Mobility Rolling Walker Recommended Devices Ambulation Independent Ambulation Recommended Devices Rolling Walker Ambulation Distance 150 Stairs Assistance Independent Stair Recommended Devices Two Rails Number of Stairs 3 Physical Therapy: Updated Goals Transfer/Bed Mobility Rolling Walker Recommended Devices Occupational Therapy: Initial Goals Goals to be Completed in (Days 7-10 days ) Upper Body Bathing Routine Supervision/Set Up Lower Body Bathing Routine Moderate Assist Upper Body Dressing Routine Minimal Contact Assist Lower Body Dressing Routine Moderate Assist Toilet Hygeine and Clothing Supervision/Set Up Management Routine Toilet Transfer Routine Supervision/Set Up Tub Transfer Routine Supervision/Set Up Functional Transfers for ADL Modified Independent with Grooming Routine Modified Independent with Feeding Routine Supervision/Set Up Nutrition: Goals Intervention Goals 1. adequate po intake to promote stable weight and maintain lean body mass - Goal: > 75% intake of meals 2. adequate hydration without clincial s/sx dehydration 3. maintain serum electrolytes within normal ranges 4. maintain regularity of BM w/o constipation (or diarrhea) Social Work: Goals Discharge Plan return home with home care svs and family support Potential for Family Training pt's is involved and attentive Anticipated Discharge Home Destination Discharge With home care svs and family support Care Plan: Care Plan ADL's - Improve/Maintain Start: 11/24/17 11:32 Freq: DAILY Status: Active Target: Protocol: Activity Type Activity Date Activity User E-Sign Co-Sign Detail Recorded Client Recorded Date Recorded By Document 12/01/17 11:56 [id number] 12/01/17 11:56 [id number] 12/01/17 11:56 PMRU Outcome: ADL's/ADL Transfers Orders/Interventions Occupational Therapy Evaluation & Treatment Patient to receive OT 5x/wk for 60-120 Therex min/day Self Care Management Group Therapy UE/LE ADL's with Assist Yes ADL Transfers with Assist Yes Toileting: Transfers,Clothing Management Yes ,Hygeine w/Assist Light Kitchen/Laundry w/Assist Yes Progression Toward Outcome/Goals Not Progressing Outcome/Goals Met Pt. continues to flucuate day to day 2* dx. Pt. continues to be limited d /t posterior lean, tremors and decreased activity tolerance. Coping/Psych-Improve/Maintain Start: 11/23/17 19:26 Freq: DAILY Status: Active Target: Protocol: Activity Type Activity Date Activity User E-Sign Co-Sign Detail Recorded Client Recorded Date Recorded By Document 12/01/17 00:32 [id number] 12/01/17 00:33 [id number] 12/01/17 00:32 PMRU Outcome: Coping/Psychosocial Coping Outcome/Goals Verbalization of Acceptance of Rehab Admit Verbalization of Sense of Control Over Health Status Utilization of Appropriate Problem Solving Techniques Willingness to Participate in Treatment Plan and Basic Needs Utilization of Available Support Systems Absence of Destructive Behavior to Self/Others Psychosocial Outcome/Goals Maintain/ Improve Emotional Health Demonstrates Knowledge of Healthy Coping Mechanisms Available Cooperate/ Participate in Plan Progression Toward Outcome/Goals - Progressing Coping Progression Toward Outcome/Goals - Progressing Psychosocial DVT Prophylaxis- Improve/Maintain Start: 11/23/17 19:26 Freq: DAILY Status: Active Target: Protocol: Activity Type Activity Date Activity User E-Sign Co-Sign Detail Recorded Client Recorded Date Recorded By Document 12/01/17 00:32 [id number] 12/01/17 00:33 [id number] 12/01/17 00:32 PMRU Outcome: DVT Prophylaxis Outcome/Goals Remains Free of DVT Complies with DVT Prophylaxis /Treatment TEDS Stockings on Every AM, Off at HS Progression Toward Outcome/Goals Progressing Discharge Planning - Improve/Maintain Start: 11/23/17 19:26 Freq: DAILY Status: Active Target: Protocol: Activity Type Activity Date Activity User E-Sign Co-Sign Detail Recorded Client Recorded Date Recorded By Document 12/01/17 00:32 [id number] 12/01/17 00:33 [id number] 12/01/17 00:32 PMRU Outcome: Discharge Planning Identify Patient Needs yes Update Patient Family Yes Outcome/Goals Demonstrates Understanding of Discharge Plan Progression Toward Outcome/Goals Progressing Education-Improve/Maintain Start: 11/23/17 19:26 Freq: DAILY Status: Active Target: Protocol: Activity Type Activity Date Activity User E-Sign Co-Sign Detail Recorded Client Recorded Date Recorded By Document 12/01/17 00:32 [id number] 12/01/17 00:33 [id number] 12/01/17 00:32 PMRU Outcome: Education Outcome/Goals Demonstrate/ Verbalize Understanding of Written Discharge Instructions Demonstrates Skills Encourage Questions Progression Toward Outcome/Goals Progressing /GI-Improve/Maintain Start: 11/23/17 19:26 Freq: DAILY Status: Active Target: Protocol: Activity Type Activity Date Activity User E-Sign Co-Sign Detail Recorded Client Recorded Date Recorded By Document 12/01/17 00:32 [id number] 12/01/17 00:33 [id number] 12/01/17 00:32 PMRU Outcome: Genitourinary/ Gastrointestinal Genitourinary- Outcome/Goals Maintain/ Achieve Urinary Continence Maintain/ Achieve Adequate Urinary Output Gastrointestinal-Outcome/Goals Maintain/ Achieve Bowel Regularity in Accordance with Pt's Baseline Remain Free of Emesis Prevent Constipation Bowel Regularity at Home Laxatives as Ordered Progression Toward Outcome/Goals - Progressing Progression Toward Outcome/Goals - GI Progressing Outcome/Goals Met Comment pt incontinent - full bed change Mobility- Improve/Maintain Start: 11/23/17 19:26 Freq: DAILY Status: Active Target: Protocol: Activity Type Activity Date Activity User E-Sign Co-Sign Detail Recorded Client Recorded Date Recorded By Document 11/28/17 17:25 [id number] 11/28/17 17:25 [id number] 11/28/17 17:25 PMRU Outcome: Mobility Physical Therapy Evaluation and Yes Treatment Activity OOB with Assistance Yes Device Yes Assistance Yes Patient to be seen 5x/wk for 60-120 min/ Therex day for: Mobility Training Gait Training Balance Outcome/Goals Maintain/ Achieve Baseline Mobility Status Improve Mobility Status Demonstrates Proper Use of Assistive Devices Free from Complications of Immobility Progression Toward Outcome/Goals Progressing Bed Mobility Yes: independent Transfers Yes: independent with RW Gait x ft Yes: independent 150 ' with RW Up/Down Stairs Yes: independent up down 5 stairs with 2 rails. Pain/Comfort- Improve/Maintain Start: 11/23/17 19:26 Freq: DAILY Status: Active Target: Protocol: Activity Type Activity Date Activity User E-Sign Co-Sign Detail Recorded Client Recorded Date Recorded By Document 12/01/17 00:32 [id number] 12/01/17 00:33 [id number] 12/01/17 00:32 PMRU Outcome: Pain/Comfort Outcome/Goals Demonstrates Knowledge and Use of Available Comfort Measures Achieves Acceptable Comfort/Pain Level as Determined by Patient/Condit Maintain Comfort Level Allowing Patient to Fully Participate in Rehab Progression Toward Outcome/Goals Progressing Outcome/Goals Met Comment pt denied pain at this time - stated he could make it through the night Respiratory - Improve/Maintain Start: 11/23/17 19:26 Freq: DAILY Status: Active Target: Protocol: Activity Type Activity Date Activity User E-Sign Co-Sign Detail Recorded Client Recorded Date Recorded By Document 12/01/17 00:32 [id number] 12/01/17 00:33 [id number] 12/01/17 00:32 PMRU Outcome: Respiratory Does Patient Have a Trach No Outcome/Goals Maintain/ Improve O2 Sat per MD Order Maintain/ Improve Baseline Respiratory Status Maintain/ Improve Activity Tolerance Prevent Pneumonia/ Atelectasis Progression Toward Outcome/Goals Progressing Safety- Improve/Maintain Start: 11/23/17 19:26 Freq: DAILY Status: Active Target: Protocol: Activity Type Activity Date Activity User E-Sign Co-Sign Detail Recorded Client Recorded Date Recorded By Document 12/01/17 00:32 [id number] 12/01/17 00:33 [id number] 12/01/17 00:32 PMRU Outcome: Safety Outcome/Goals Remain Free of Injury or Harm Cooperates with Safety Measures for Least Restrictive Environment Prevent Falls/ Injury Equipment Needed Progression Toward Outcome/Goals Progressing Outcome/Goals Met Comment PA in place Skin- Improve/Maintain Start: 11/23/17 19:26 Freq: DAILY Status: Active Target: Protocol: Activity Type Activity Date Activity User E-Sign Co-Sign Detail Recorded Client Recorded Date Recorded By Document 12/01/17 00:32 [id number] [email or web address] 12/01/17 00:33 [id number] 12/01/17 00:32 PMRU Outcome: Skin Skin Risk Level High Skin Orders Teach Patient Air Mattress Spen[employer] Boots Heels Off Bed Turn/Position q2hr While in Bed Outcome/Goals Maintain/ Improve Skin Intergrity Progression Toward Outcome/Goals Progressing Medicine Note: Length of Stay: 7 days Anticipated Discharge Destination: Home Tentative Discharge Date: 12/08/17 Discharged to: Home
[2017-12-01] MEDS: Atorvastatin* 20 MG TAB PO SCH (15:41)
--- NOTE | 2017-12-01 16:38 | PN ---
Progress Note Date of Service: 12/01/17 Note: TIMOTHY DELGADO was visited. Therapy notes read and reviewed. He was discussed in interdisciplinary team rounds. He was able to walk down the shen today, and functionally he is much improved. He doesn't see it and focuses disproportionately on his pain. Not sure if Lyyvettea is helping Current Medications: Active Medications Generic Name Dose Route Start Last Admin Trade Name Freq PRN Reason Stop Dose Admin Acetaminophen 650 mg 11/23/17 13:18 11/30/17 16:44 Tylenol Tab* PO 650 mg Q6H PRN Administration FEVER/HEADACHE Aspirin 325 mg 11/24/17 09:00 12/01/17 08:06 Aspirin Tab* PO 325 mg DAILY EMILY Administration Atorvastatin Calcium 20 mg 11/23/17 17:00 12/01/17 15:41 Lipitor* PO 20 mg 1700 EMILY Administration Bisacodyl 10 mg 11/24/17 13:25 11/24/17 14:42 Dulcolax Supp* [place] 10 mg DAILY PRN Administration CONSTIPATION Carbidopa/Levodopa 1 tab 11/23/17 17:00 12/01/17 15:41 Sinemet 25/100 Tab(*) PO 1 tab QID EMILY Administration Diazepam 10 mg 11/24/17 16:16 12/01/17 10:47 Valium Tab(*) PO 10 mg Q8H PRN Administration ANXIETY Docusate Sodium 100 mg 11/23/17 21:00 12/01/17 08:07 Colace Cap* PO 100 mg BID EMILY Administration Heparin Sodium (Porcine) 5,000 units 11/23/17 14:00 12/01/17 15:41 Heparin Vial(*) SUBCUT 5,000 units Q8HR EMILY Administration Magnesium Hydroxide 30 ml 11/23/17 13:18 11/24/17 07:43 Milk Of Magnesia Liq* PO 30 ml Q6H PRN Administration CONSTIPATION Metoprolol Tartrate 25 mg 11/23/17 21:00 12/01/17 08:07 Lopressor Tab* PO 25 mg BID EMILY Administration Mometasone Furoate/Formoterol Fumar 2 puff 11/23/17 21:00 12/01/17 08:06 Dulera 100/5 Mdi* INH 2 puff BID EMILY Administration Omeprazole 20 mg 11/24/17 06:00 12/01/17 05:58 Prilosec Cap* PO 20 mg 0600 EMILY Administration Oxycodone/Acetaminophen 1 tab 11/23/17 13:37 12/01/17 15:41 Percocet 5/325 Tab* PO 1 tab Q4H PRN Administration PAIN - MODERATE TO SEVERE Polyethylene Glycol/Electrolytes 17 gm 11/27/17 09:00 12/01/17 08:06 Miralax* PO 17 gm DAILY EMILY Administration Pregabalin 75 mg 11/29/17 21:00 12/01/17 08:06 Lyrica Cap(*) PO 75 mg BID EMILY Administration Prochlorperazine 10 mg 11/23/17 18:31 11/30/17 14:30 Compazine Tab* PO 10 mg Q8H PRN Administration NAUSEA Senna 2 tab 11/26/17 21:00 11/30/17 20:57 Senokot Tab* PO 2 tab BEDTIME EMILY Administration Sodium Biphosphate/Sodium Phosphate 1 bottle 11/24/17 10:26 Fleet Enema* [place] DAILY PRN CONSTIPATION Throat Lozenges 1 eric 11/28/17 16:04 11/30/17 10:00 Chloraseptic Eric* PO 1 eric Q6H PRN Administration COUGH Trazodone HCl 50 mg 11/23/17 21:00 11/30/17 21:01 Desyrel Tab* PO 50 mg BEDTIME EMILY Administration Vital Signs: Vital Signs Temp Pulse Resp BP Pulse Ox 97.8 F 63 16 120/54 94 12/01/17 16:10 12/01/17 16:10 12/01/17 16:10 12/01/17 16:10 12/01/17 16:10 Exam: HEENT: EOMI LUNGS: Clear HEART: reg rhythm ABDOMEN: soft, distended. +BS EXTREMITIES: Resting tremor NEUROLOGIC: some rigidity. Assessment/Plan: 1. Parkinson's Disease: Sinemet. PT/OT. 2. Nausea: compazine PRN 3. Elevated WBC: Asymptomatic. 4. Constipation: Had BMs yesterday. Resumed Miralax 5. COPD: Dulera 6. DVT Prophylaxis: Heparin S/Q 7. Advanced Directives: Full code 8. Back pain: Percocet 9. Anxiety: Diazepam PRN 10. CAD: Lipitor/ASA 11. Fibromyalgia: On Lyrica. May need to increase to 100 BID 12/01/17 16:39
[2017-12-01] MEDS: traZODone TAB* 50 MG TAB PO SCH (21:47)
[2017-12-01] MEDS: Senna TAB PO SCH (21:47)
[2017-12-02] MEDS: Heparin VIAL(*) 5000 UNITS/ML VIAL (FIVE THOUSAND) SUBCUT SCH ×3 (05:33→22:07)
[2017-12-02] MEDS: Omeprazole CAP* 20 MG PO SCH (05:33)
[2017-12-02 07:09] LABS: ABS Basophils 0 10^3/ul (0-0.2); ABS Eosinophils 0.1 10^3/ul (0-0.6); ABS Lymphocytes 2.4 10^3/ul (1.0-4.8); ABS Monocytes 0.8 10^3/ul (0-0.8); ABS Neutrophils 6.3 10^3/ul (1.5-7.7); ABS Nucleated RBC 0 10^3/ul; Eosinophil % 1.2 % (0-6); Hematocrit 41 % (42-52); Hemoglobin 13.9 g/dl (14.0-18.0); Mean Corpuscular HGB Conc 34 g/dl (31-36); Mean Corpuscular Hemoglobin 31 pg (27-31); Mean Corpuscular Volume 92 fL (80-94); Mean Platelet Volume 8 um3 (7.4-10.4); Nucleated Red Blood Cells % 0.1; Platelet Count 415 10^3/ul (150-450); Red Blood Count 4.43 10^6/ul (4.0-5.4); Red Cell Distribution Width 14 % (10.5-15); White Blood Count 9.7 10^3/ul (3.5-10.8)
[2017-12-02 07:23] LABS: EGFR Non-African American 102.1 (>60)
[2017-12-02] MEDS: Aspirin TAB* 325 MG PO SCH (08:25)
[2017-12-02] MEDS: Pregabalin CAP(*) 25 MG PO SCH ×2 (08:25→19:48)
[2017-12-02] MEDS: CARBIDOPA PO SCH ×4 (08:25→19:48)
[2017-12-02] MEDS: Metoprolol Tartrate TAB* 25 MG PO SCH ×2 (08:25→19:48)
[2017-12-02] MEDS: Docusate CAP* 100 MG PO SCH ×2 (08:25→19:48)
[2017-12-02] MEDS: LEVODOP PO SCH ×4 (08:25→19:48)
[2017-12-02] MEDS: Polyethylene Glycol 3350* 17 GM PACKET PO SCH (08:30)
[2017-12-02] MEDS: Mometasone/Formoter 100/5 MDI INH SCH ×2 (09:32→19:49)
[2017-12-02] MEDS: oxyCODONE/Acetamin 5/325 MG* TAB PO PRN ×3 (09:36→19:48)
[2017-12-02] MEDS: Atorvastatin* 20 MG TAB PO SCH (16:37)
[2017-12-02] MEDS: Senna TAB PO SCH (19:48)
[2017-12-02] MEDS: traZODone TAB* 50 MG TAB PO SCH (19:50)
--- NOTE | 2017-12-02 20:27 | PN ---
Progress Note Date of Service: 12/02/17 Note: TIMOTHY DELGADO was visited. Therapy notes read and reviewed. He complains of a lot of pain but is walking better. He is doing more. Current Medications: Active Medications Generic Name Dose Route Start Last Admin Trade Name Freq PRN Reason Stop Dose Admin Acetaminophen 650 mg 11/23/17 13:18 11/30/17 16:44 Tylenol Tab* PO 650 mg Q6H PRN Administration FEVER/HEADACHE Aspirin 325 mg 11/24/17 09:00 12/02/17 08:25 Aspirin Tab* PO 325 mg DAILY EMILY Administration Atorvastatin Calcium 20 mg 11/23/17 17:00 12/02/17 16:37 Lipitor* PO 20 mg 1700 EMILY Administration Bisacodyl 10 mg 11/24/17 13:25 11/24/17 14:42 Dulcolax Supp* [place] 10 mg DAILY PRN Administration CONSTIPATION Carbidopa/Levodopa 1 tab 11/23/17 17:00 12/02/17 19:48 Sinemet 25/100 Tab(*) PO 1 tab QID EMILY Administration Diazepam 10 mg 11/24/17 16:16 12/01/17 10:47 Valium Tab(*) PO 10 mg Q8H PRN Administration ANXIETY Docusate Sodium 100 mg 11/23/17 21:00 12/02/17 19:48 Colace Cap* PO 100 mg BID EMILY Administration Heparin Sodium (Porcine) 5,000 units 11/23/17 14:00 12/02/17 14:10 Heparin Vial(*) SUBCUT 5,000 units Q8HR EMILY Administration Magnesium Hydroxide 30 ml 11/23/17 13:18 11/24/17 07:43 Milk Of Magnesia Liq* PO 30 ml Q6H PRN Administration CONSTIPATION Metoprolol Tartrate 25 mg 11/23/17 21:00 12/02/17 19:48 Lopressor Tab* PO 25 mg BID EMILY Administration Mometasone Furoate/Formoterol Fumar 2 puff 11/23/17 21:00 12/02/17 19:49 Dulera 100/5 Mdi* INH 2 puff BID EMILY Administration Omeprazole 20 mg 11/24/17 06:00 12/02/17 05:33 Prilosec Cap* PO 20 mg 0600 EMILY Administration Oxycodone/Acetaminophen 1 tab 11/23/17 13:37 12/02/17 19:48 Percocet 5/325 Tab* PO 1 tab Q4H PRN Administration PAIN - MODERATE TO SEVERE Polyethylene Glycol/Electrolytes 17 gm 11/27/17 09:00 12/02/17 08:30 Miralax* PO 17 gm DAILY EMILY Administration Pregabalin 75 mg 11/29/17 21:00 12/02/17 19:48 Lyrica Cap(*) PO 75 mg BID EMILY Administration Prochlorperazine 10 mg 11/23/17 18:31 11/30/17 14:30 Compazine Tab* PO 10 mg Q8H PRN Administration NAUSEA Senna 2 tab 11/26/17 21:00 12/02/17 19:48 Senokot Tab* PO 2 tab BEDTIME EMILY Administration Sodium Biphosphate/Sodium Phosphate 1 bottle 11/24/17 10:26 Fleet Enema* [place] DAILY PRN CONSTIPATION Throat Lozenges 1 eric 11/28/17 16:04 11/30/17 10:00 Chloraseptic Eric* PO 1 eric Q6H PRN Administration COUGH Trazodone HCl 50 mg 11/23/17 21:00 12/02/17 19:50 Desyrel Tab* PO 50 mg BEDTIME EMILY Administration Vital Signs: Vital Signs Temp Pulse Resp BP Pulse Ox 97.9 F 74 16 131/57 94 12/02/17 15:23 12/02/17 19:55 12/02/17 19:55 12/02/17 19:55 12/02/17 19:55 Lab Results: Laboratory Results - last 24 hr 12/02/17 12/02/17 06:45 06:45 WBC 9.7 RBC 4.43 Hgb 13.9 L Hct 41 L MCV 92 MCH 31 MCHC 34 RDW 14 Plt Count 415 MPV 8 Neut % (Auto) 65.3 Lymph % (Auto) 25.0 Baxter % (Auto) 8.2 H Eos % (Auto) 1.2 Baso % (Auto) 0.3 Absolute Neuts (auto) 6.3 Absolute Lymphs (auto) 2.4 Absolute Monos (auto) 0.8 Absolute Eos (auto) 0.1 Absolute Basos (auto) 0 Absolute Nucleated RBC 0 Nucleated RBC % 0.1 Sodium 138 Potassium 4.1 Chloride 101 Carbon Dioxide 32 Anion Gap 5 BUN 28 H Creatinine 0.75 Est GFR ( Amer) 131.3 Est GFR (Non-Af Amer) 102.1 BUN/Creatinine Ratio 37.3 H Glucose 111 H Calcium 9.9 Total Bilirubin 0.60 AST 12 L ALT 6 L Alkaline Phosphatase 60 Total Protein 6.8 Albumin 3.7 Globulin 3.1 Albumin/Globulin Ratio 1.2 Exam: HEENT: EOMI LUNGS: Clear HEART: reg rhythm ABDOMEN: soft, distended. +BS EXTREMITIES: Resting tremor NEUROLOGIC: some rigidity. Assessment/Plan: 1. Parkinson's Disease: Sinemet. PT/OT. 2. Nausea: compazine PRN 3. Elevated WBC: Asymptomatic. 4. Constipation: Had BMs yesterday. Resumed Miralax 5. COPD: Dulera 6. DVT Prophylaxis: Heparin S/Q 7. Advanced Directives: Full code 8. Back pain: Percocet 9. Anxiety: Diazepam PRN 10. CAD: Lipitor/ASA 11. Fibromyalgia: On Lyrica. May need to increase to 100 BID 12/02/17 20:28
[2017-12-03] MEDS: Omeprazole CAP* 20 MG PO SCH (06:35)
[2017-12-03] MEDS: Heparin VIAL(*) 5000 UNITS/ML VIAL (FIVE THOUSAND) SUBCUT SCH ×3 (06:35→21:20)
[2017-12-03] MEDS: Polyethylene Glycol 3350* 17 GM PACKET PO SCH (09:10)
[2017-12-03] MEDS: LEVODOP PO SCH ×4 (09:11→21:20)
[2017-12-03] MEDS: Aspirin TAB* 325 MG PO SCH (09:11)
[2017-12-03] MEDS: Metoprolol Tartrate TAB* 25 MG PO SCH ×2 (09:11→21:19)
[2017-12-03] MEDS: CARBIDOPA PO SCH ×4 (09:11→21:20)
[2017-12-03] MEDS: Pregabalin CAP(*) 25 MG PO SCH ×2 (09:11→21:28)
[2017-12-03] MEDS: Docusate CAP* 100 MG PO SCH ×2 (09:11→21:20)
[2017-12-03] MEDS: oxyCODONE/Acetamin 5/325 MG* TAB PO PRN ×3 (09:11→17:28)
[2017-12-03] MEDS: Mometasone/Formoter 100/5 MDI INH SCH ×2 (09:14→21:01)
[2017-12-03] MEDS: Diazepam TAB(*) 5 MG PO PRN (12:53)
[2017-12-03] MEDS: Atorvastatin* 20 MG TAB PO SCH (17:38)
[2017-12-03] MEDS: traZODone TAB* 50 MG TAB PO SCH (21:19)
[2017-12-03] MEDS: Senna TAB PO SCH (21:20)
--- NOTE | 2017-12-03 21:42 | PN ---
Progress Note Date of Service: 12/03/17 Note: TIMOTHY DELGADO was visited. Therapy notes read and reviewed. The patient continues to report pain. He notes he had pain before he came in, and at least, he is doing more. Current Medications: Active Medications Generic Name Dose Route Start Last Admin Trade Name Freq PRN Reason Stop Dose Admin Acetaminophen 650 mg 11/23/17 13:18 11/30/17 16:44 Tylenol Tab* PO 650 mg Q6H PRN Administration FEVER/HEADACHE Aspirin 325 mg 11/24/17 09:00 12/03/17 09:11 Aspirin Tab* PO 325 mg DAILY EMILY Administration Atorvastatin Calcium 20 mg 11/23/17 17:00 12/03/17 17:38 Lipitor* PO 20 mg 1700 EMILY Administration Bisacodyl 10 mg 11/24/17 13:25 11/24/17 14:42 Dulcolax Supp* [place] 10 mg DAILY PRN Administration CONSTIPATION Carbidopa/Levodopa 1 tab 11/23/17 17:00 12/03/17 21:20 Sinemet 25/100 Tab(*) PO 1 tab QID EMILY Administration Diazepam 10 mg 11/24/17 16:16 12/03/17 12:53 Valium Tab(*) PO 10 mg Q8H PRN Administration ANXIETY Docusate Sodium 100 mg 11/23/17 21:00 12/03/17 21:20 Colace Cap* PO 100 mg BID EMILY Administration Heparin Sodium (Porcine) 5,000 units 11/23/17 14:00 12/03/17 21:20 Heparin Vial(*) SUBCUT 5,000 units Q8HR EMILY Administration Magnesium Hydroxide 30 ml 11/23/17 13:18 11/24/17 07:43 Milk Of Magnesia Liq* PO 30 ml Q6H PRN Administration CONSTIPATION Metoprolol Tartrate 25 mg 11/23/17 21:00 12/03/17 21:19 Lopressor Tab* PO 25 mg BID EMILY Administration Mometasone Furoate/Formoterol Fumar 2 puff 11/23/17 21:00 12/03/17 21:01 Dulera 100/5 Mdi* INH 2 puff BID EMILY Administration Omeprazole 20 mg 11/24/17 06:00 12/03/17 06:35 Prilosec Cap* PO 20 mg 0600 EMILY Administration Oxycodone/Acetaminophen 1 tab 11/23/17 13:37 12/03/17 17:28 Percocet 5/325 Tab* PO 1 tab Q4H PRN Administration PAIN - MODERATE TO SEVERE Polyethylene Glycol/Electrolytes 17 gm 11/27/17 09:00 12/03/17 09:10 Miralax* PO 17 gm DAILY EMILY Administration Pregabalin 75 mg 11/29/17 21:00 12/03/17 21:28 Lyrica Cap(*) PO 75 mg BID EMILY Administration Prochlorperazine 10 mg 11/23/17 18:31 11/30/17 14:30 Compazine Tab* PO 10 mg Q8H PRN Administration NAUSEA Senna 2 tab 11/26/17 21:00 12/03/17 21:20 Senokot Tab* PO 2 tab BEDTIME EMILY Administration Sodium Biphosphate/Sodium Phosphate 1 bottle 11/24/17 10:26 Fleet Enema* [place] DAILY PRN CONSTIPATION Throat Lozenges 1 eric 11/28/17 16:04 11/30/17 10:00 Chloraseptic Eric* PO 1 eric Q6H PRN Administration COUGH Trazodone HCl 50 mg 11/23/17 21:00 12/03/17 21:19 Desyrel Tab* PO 50 mg BEDTIME EMILY Administration Vital Signs: Vital Signs Temp Pulse Resp BP Pulse Ox 98.9 F 71 20 116/63 98 12/03/17 17:22 12/03/17 20:59 12/03/17 21:28 12/03/17 17:22 12/03/17 20:59 Exam: HEENT: EOMI LUNGS: Clear HEART: reg rhythm ABDOMEN: soft, distended. +BS EXTREMITIES: Resting tremor NEUROLOGIC: some rigidity. Assessment/Plan: 1. Parkinson's Disease: Sinemet. PT/OT. 2. Nausea: compazine PRN 3. Elevated WBC: Asymptomatic. 4. Constipation: Had BMs yesterday. Resumed Miralax 5. COPD: Dulera 6. DVT Prophylaxis: Heparin S/Q 7. Advanced Directives: Full code 8. Back pain: Percocet 9. Anxiety: Diazepam PRN 10. CAD: Lipitor/ASA 11. Fibromyalgia: On Lyrica. May need to increase to 100 BID 12/03/17 21:43
[2017-12-04] MEDS: Omeprazole CAP* 20 MG PO SCH (05:45)
[2017-12-04] MEDS: Heparin VIAL(*) 5000 UNITS/ML VIAL (FIVE THOUSAND) SUBCUT SCH ×3 (05:47→21:08)
[2017-12-04] MEDS: Aspirin TAB* 325 MG PO SCH (09:09)
[2017-12-04] MEDS: CARBIDOPA PO SCH ×4 (09:09→21:09)
[2017-12-04] MEDS: Docusate CAP* 100 MG PO SCH ×2 (09:09→21:10)
[2017-12-04] MEDS: Polyethylene Glycol 3350* 17 GM PACKET PO SCH (09:09)
[2017-12-04] MEDS: LEVODOP PO SCH ×4 (09:09→21:09)
[2017-12-04] MEDS: oxyCODONE/Acetamin 5/325 MG* TAB PO PRN ×4 (09:10→21:09)
[2017-12-04] MEDS: Metoprolol Tartrate TAB* 25 MG PO SCH ×2 (09:10→21:09)
[2017-12-04] MEDS: Pregabalin CAP(*) 25 MG PO SCH ×2 (09:10→21:08)
[2017-12-04] MEDS: Mometasone/Formoter 100/5 MDI INH SCH ×2 (09:17→21:10)
[2017-12-04] MEDS: Prochlorperazine TAB* 10 MG PO PRN ×2 (09:21→17:11)
--- NOTE | 2017-12-04 12:15 | PN ---
Progress Note Date of Service: 12/04/17 Note: TIMOTHY DELGADO was visited. Nursing and therapy notes read and reviewed. No chest pain, shortness of breath or abdominal pain. He has been coughing, even before admission which he thinks is improving, but is now seen by speech for swallowing. Current Medications: Active Medications Generic Name Dose Route Start Last Admin Trade Name Freq PRN Reason Stop Dose Admin Acetaminophen 650 mg 11/23/17 13:18 11/30/17 16:44 Tylenol Tab* PO 650 mg Q6H PRN Administration FEVER/HEADACHE Aspirin 325 mg 11/24/17 09:00 12/04/17 09:09 Aspirin Tab* PO 325 mg DAILY EMILY Administration Atorvastatin Calcium 20 mg 11/23/17 17:00 12/03/17 17:38 Lipitor* PO 20 mg 1700 EMILY Administration Bisacodyl 10 mg 11/24/17 13:25 11/24/17 14:42 Dulcolax Supp* [place] 10 mg DAILY PRN Administration CONSTIPATION Carbidopa/Levodopa 1 tab 11/23/17 17:00 12/04/17 09:09 Sinemet 25/100 Tab(*) PO 1 tab QID EMILY Administration Diazepam 10 mg 11/24/17 16:16 12/03/17 12:53 Valium Tab(*) PO 10 mg Q8H PRN Administration ANXIETY Docusate Sodium 100 mg 11/23/17 21:00 12/04/17 09:09 Colace Cap* PO 100 mg BID EMILY Administration Heparin Sodium (Porcine) 5,000 units 11/23/17 14:00 12/04/17 05:47 Heparin Vial(*) SUBCUT 5,000 units Q8HR EMILY Administration Magnesium Hydroxide 30 ml 11/23/17 13:18 11/24/17 07:43 Milk Of Magnesia Liq* PO 30 ml Q6H PRN Administration CONSTIPATION Metoprolol Tartrate 25 mg 11/23/17 21:00 12/04/17 09:10 Lopressor Tab* PO 25 mg BID EMILY Administration Mometasone Furoate/Formoterol Fumar 2 puff 11/23/17 21:00 12/04/17 09:17 Dulera 100/5 Mdi* INH 2 puff BID EMILY Administration Omeprazole 20 mg 11/24/17 06:00 12/04/17 05:45 Prilosec Cap* PO 20 mg 0600 EMILY Administration Oxycodone/Acetaminophen 1 tab 11/23/17 13:37 12/04/17 09:10 Percocet 5/325 Tab* PO 1 tab Q4H PRN Administration PAIN - MODERATE TO SEVERE Polyethylene Glycol/Electrolytes 17 gm 11/27/17 09:00 12/04/17 09:09 Miralax* PO 17 gm DAILY EMILY Administration Pregabalin 75 mg 11/29/17 21:00 12/04/17 09:10 Lyrica Cap(*) PO 75 mg BID EMILY Administration Prochlorperazine 10 mg 11/23/17 18:31 12/04/17 09:21 Compazine Tab* PO 10 mg Q8H PRN Administration NAUSEA Senna 2 tab 11/26/17 21:00 12/03/17 21:20 Senokot Tab* PO 2 tab BEDTIME EMILY Administration Sodium Biphosphate/Sodium Phosphate 1 bottle 11/24/17 10:26 Fleet Enema* [place] DAILY PRN CONSTIPATION Throat Lozenges 1 eric 11/28/17 16:04 11/30/17 10:00 Chloraseptic Eric* PO 1 eric Q6H PRN Administration COUGH Trazodone HCl 50 mg 11/23/17 21:00 12/03/17 21:19 Desyrel Tab* PO 50 mg BEDTIME EMILY Administration Vital Signs: Vital Signs Temp Pulse Resp BP Pulse Ox 98.2 F 54 18 112/60 97 12/04/17 05:38 12/04/17 05:38 12/04/17 09:10 12/04/17 05:38 12/04/17 05:38 Exam: GEN: no acute distress. Alert and appropriate. LUNGS: Clear to auscultation bilaterally. HEART: regular rate and rhythm ABDOMEN: +BS, soft, non-tender, non-distended EXTREMITIES: No edema NEUROLOGIC: Resting tremors bilaterally in arms/hands primarily. Assessment/Plan: 72yo man with Parkinson's disease s/p admission for exacerbation and treated for URI. 1. Parkinson's Disease: Sinemet. PT/OT. 2. Nausea: compazine PRN 3. Elevated WBC: resolved on labs 12/02. 4. Constipation: Miralax daily 5. COPD: Dulera 6. DVT Prophylaxis: Heparin S/Q 7. Advanced Directives: Full code 8. Back pain: Percocet 9. Anxiety: Diazepam PRN 10. CAD: Lipitor/ASA 11. Fibromyalgia: On Lyrica. May need to increase to 100 BID 12. Cough/dysphagia: speech. Recheck chest x-ray given persistent cough. 12/04/17 12:15
--- NOTE | 2017-12-04 16:35 | RAD ---
Indication: Parkinson's disease. Hypertension. Cardiac disease. Comparison: November 21, 2017 Technique: Sitting AP and lateral views Report: Elevated lung volumes and mild prominence of the interstitial markings without change. No focal pulmonary lesion, compelling alveolar consolidation, pleural effusion, pneumothorax. The heart, pulmonary vasculature, and mediastinal contours are unremarkable. Dorsal column stimulator leads noted. Mild thoracic degenerative spondylosis. IMPRESSION: Stigmata of obstructive lung disease. Interval resolution of previous LEFT basilar linear opacity most consistent with resolution of atelectasis.
[2017-12-04] MEDS: Atorvastatin* 20 MG TAB PO SCH (17:11)
[2017-12-04] MEDS: traZODone TAB* 50 MG TAB PO SCH (21:09)
[2017-12-04] MEDS: Senna TAB PO SCH (21:09)
[2017-12-05] MEDS: Omeprazole CAP* 20 MG PO SCH (05:50)
[2017-12-05] MEDS: oxyCODONE/Acetamin 5/325 MG* TAB PO PRN ×3 (05:50→20:59)
[2017-12-05] MEDS: Heparin VIAL(*) 5000 UNITS/ML VIAL (FIVE THOUSAND) SUBCUT SCH ×3 (05:51→21:10)
[2017-12-05] MEDS: Prochlorperazine TAB* 10 MG PO PRN (08:23)
[2017-12-05] MEDS: LEVODOP PO SCH ×4 (08:24→21:00)
[2017-12-05] MEDS: CARBIDOPA PO SCH ×4 (08:24→21:00)
[2017-12-05] MEDS: Metoprolol Tartrate TAB* 25 MG PO SCH ×2 (08:25→20:59)
[2017-12-05] MEDS: Aspirin TAB* 325 MG PO SCH (08:25)
[2017-12-05] MEDS: Docusate CAP* 100 MG PO SCH ×2 (08:26→21:00)
[2017-12-05] MEDS: Polyethylene Glycol 3350* 17 GM PACKET PO SCH (08:29)
[2017-12-05] MEDS: Pregabalin CAP(*) 25 MG PO SCH ×2 (09:15→20:59)
[2017-12-05] MEDS: Mometasone/Formoter 100/5 MDI INH SCH ×2 (09:16→21:08)
--- NOTE | 2017-12-05 10:16 | PN ---
Progress Note Date of Service: 12/05/17 Note: TIMOTHY DELGADO was visited. Nursing and therapy notes read and reviewed. No new pains. No chest pain, shortness of breath or abdominal pain. His will be in today and for family training on Thursday. Current Medications: Active Medications Generic Name Dose Route Start Last Admin Trade Name Freq PRN Reason Stop Dose Admin Acetaminophen 650 mg 11/23/17 13:18 11/30/17 16:44 Tylenol Tab* PO 650 mg Q6H PRN Administration FEVER/HEADACHE Aspirin 325 mg 11/24/17 09:00 12/05/17 08:25 Aspirin Tab* PO 325 mg DAILY EMILY Administration Atorvastatin Calcium 20 mg 11/23/17 17:00 12/04/17 17:11 Lipitor* PO 20 mg 1700 EMILY Administration Bisacodyl 10 mg 11/24/17 13:25 11/24/17 14:42 Dulcolax Supp* [place] 10 mg DAILY PRN Administration CONSTIPATION Carbidopa/Levodopa 1 tab 11/23/17 17:00 12/05/17 08:24 Sinemet 25/100 Tab(*) PO 1 tab QID EMILY Administration Diazepam 10 mg 11/24/17 16:16 12/03/17 12:53 Valium Tab(*) PO 10 mg Q8H PRN Administration ANXIETY Docusate Sodium 100 mg 11/23/17 21:00 12/05/17 08:26 Colace Cap* PO 100 mg BID EMILY Administration Heparin Sodium (Porcine) 5,000 units 11/23/17 14:00 12/05/17 05:51 Heparin Vial(*) SUBCUT 5,000 units Q8HR EMILY Administration Magnesium Hydroxide 30 ml 11/23/17 13:18 11/24/17 07:43 Milk Of Magnesia Liq* PO 30 ml Q6H PRN Administration CONSTIPATION Metoprolol Tartrate 25 mg 11/23/17 21:00 12/05/17 08:25 Lopressor Tab* PO 25 mg BID EMILY Administration Mometasone Furoate/Formoterol Fumar 2 puff 11/23/17 21:00 12/05/17 09:16 Dulera 100/5 Mdi* INH 2 puff BID EMILY Administration Omeprazole 20 mg 11/24/17 06:00 12/05/17 05:50 Prilosec Cap* PO 20 mg 0600 EMILY Administration Oxycodone/Acetaminophen 1 tab 11/23/17 13:37 12/05/17 05:50 Percocet 5/325 Tab* PO 1 tab Q4H PRN Administration PAIN - MODERATE TO SEVERE Polyethylene Glycol/Electrolytes 17 gm 11/27/17 09:00 12/05/17 08:29 Miralax* PO 17 gm DAILY EMILY Administration Pregabalin 75 mg 11/29/17 21:00 12/05/17 09:15 Lyrica Cap(*) PO 75 mg BID EMILY Administration Prochlorperazine 10 mg 11/23/17 18:31 12/05/17 08:23 Compazine Tab* PO 10 mg Q8H PRN Administration NAUSEA Senna 2 tab 11/26/17 21:00 12/04/17 21:09 Senokot Tab* PO 2 tab BEDTIME EMILY Administration Sodium Biphosphate/Sodium Phosphate 1 bottle 11/24/17 10:26 Fleet Enema* [place] DAILY PRN CONSTIPATION Throat Lozenges 1 eric 11/28/17 16:04 11/30/17 10:00 Chloraseptic Eric* PO 1 eric Q6H PRN Administration COUGH Trazodone HCl 50 mg 11/23/17 21:00 12/04/17 21:09 Desyrel Tab* PO 50 mg BEDTIME EMILY Administration Vital Signs: Vital Signs Temp Pulse Resp BP Pulse Ox 99.3 F 62 18 120/72 97 12/05/17 06:01 12/05/17 06:01 12/05/17 10:03 12/05/17 06:01 12/05/17 08:00 Lab Results: Chest x-ray 12/04/17 showed stigmata of COPD and resolution of prior left lower linear atelectasis Exam: GEN: no acute distress. Alert and appropriate. LUNGS: Clear to auscultation bilaterally. HEART: regular rate and rhythm ABDOMEN: +BS, soft, non-tender, non-distended EXTREMITIES: No edema NEUROLOGIC: Resting tremors bilaterally in arms/hands primarily. Assessment/Plan: 72yo man with Parkinson's disease s/p admission for exacerbation and treated for URI. 1. Parkinson's Disease: Sinemet. PT/OT. 2. Nausea: compazine PRN 3. Elevated WBC: resolved on labs 12/02. 4. Constipation: Miralax daily 5. COPD: Dulera 6. DVT Prophylaxis: Heparin S/Q 7. Advanced Directives: Full code 8. Back pain: Percocet 9. Anxiety: Diazepam PRN 10. CAD: Lipitor/ASA 11. Fibromyalgia: On Lyrica. May need to increase to 100 BID 12. Cough/dysphagia: speech therapy. Chest x-ray without signs of pneumonia on . 13. Dispo: Family training on Thursday and hopeful discharge home later in week. 12/05/17 10:17
[2017-12-05] MEDS: Diazepam TAB(*) 5 MG PO PRN (15:30)
[2017-12-05] MEDS: Atorvastatin* 20 MG TAB PO SCH (17:15)
[2017-12-05] MEDS: Senna TAB PO SCH (21:00)
[2017-12-05] MEDS: traZODone TAB* 50 MG TAB PO SCH (21:00)
[2017-12-06] MEDS: Omeprazole CAP* 20 MG PO SCH (05:38)
[2017-12-06] MEDS: Heparin VIAL(*) 5000 UNITS/ML VIAL (FIVE THOUSAND) SUBCUT SCH ×3 (05:38→21:09)
[2017-12-06] MEDS: oxyCODONE/Acetamin 5/325 MG* TAB PO PRN ×3 (06:09→21:07)
[2017-12-06] MEDS: Metoprolol Tartrate TAB* 25 MG PO SCH ×2 (10:38→21:07)
[2017-12-06] MEDS: LEVODOP PO SCH ×4 (10:38→21:07)
[2017-12-06] MEDS: CARBIDOPA PO SCH ×4 (10:38→21:07)
[2017-12-06] MEDS: Pregabalin CAP(*) 25 MG PO SCH ×2 (10:38→21:03)
[2017-12-06] MEDS: Docusate CAP* 100 MG PO SCH ×2 (10:39→21:05)
[2017-12-06] MEDS: Polyethylene Glycol 3350* 17 GM PACKET PO SCH (10:39)
[2017-12-06] MEDS: Aspirin TAB* 325 MG PO SCH (10:39)
[2017-12-06] MEDS: Mometasone/Formoter 100/5 MDI INH SCH ×2 (10:48→21:15)
--- NOTE | 2017-12-06 10:56 | PN ---
Progress Note Date of Service: 12/06/17 Note: TIMOTHY DELGADO was visited. Nursing notes read and reviewed. No chest pain, shortness of breath or abdominal pain. He reports chronic issues with nausea. No vomiting. This was present before admission. On PMRU he has had an order for compazine, and there was concern that this medication might worsen his tremors. He is interested in trying some other medication. Current Medications: Active Medications Generic Name Dose Route Start Last Admin Trade Name Freq PRN Reason Stop Dose Admin Acetaminophen 650 mg 11/23/17 13:18 11/30/17 16:44 Tylenol Tab* PO 650 mg Q6H PRN Administration FEVER/HEADACHE Aspirin 325 mg 11/24/17 09:00 12/06/17 10:39 Aspirin Tab* PO 325 mg DAILY EMILY Administration Atorvastatin Calcium 20 mg 11/23/17 17:00 12/05/17 17:15 Lipitor* PO 20 mg 1700 EMILY Administration Bisacodyl 10 mg 11/24/17 13:25 11/24/17 14:42 Dulcolax Supp* [place] 10 mg DAILY PRN Administration CONSTIPATION Carbidopa/Levodopa 1 tab 11/23/17 17:00 12/06/17 10:38 Sinemet 25/100 Tab(*) PO 1 tab QID EMILY Administration Diazepam 10 mg 11/24/17 16:16 12/05/17 15:30 Valium Tab(*) PO 10 mg Q8H PRN Administration ANXIETY Docusate Sodium 100 mg 11/23/17 21:00 12/06/17 10:39 Colace Cap* PO 100 mg BID EMILY Administration Heparin Sodium (Porcine) 5,000 units 11/23/17 14:00 12/06/17 05:38 Heparin Vial(*) SUBCUT 5,000 units Q8HR EMILY Administration Magnesium Hydroxide 30 ml 11/23/17 13:18 11/24/17 07:43 Milk Of Magnesia Liq* PO 30 ml Q6H PRN Administration CONSTIPATION Metoprolol Tartrate 25 mg 11/23/17 21:00 12/06/17 10:38 Lopressor Tab* PO 25 mg BID EMILY Administration Mometasone Furoate/Formoterol Fumar 2 puff 11/23/17 21:00 12/05/17 21:08 Dulera 100/5 Mdi* INH 2 puff BID EMILY Administration Omeprazole 20 mg 11/24/17 06:00 12/06/17 05:38 Prilosec Cap* PO 20 mg 0600 EMILY Administration Oxycodone/Acetaminophen 1 tab 11/23/17 13:37 12/06/17 06:09 Percocet 5/325 Tab* PO 1 tab Q4H PRN Administration PAIN - MODERATE TO SEVERE Polyethylene Glycol/Electrolytes 17 gm 11/27/17 09:00 12/06/17 10:39 Miralax* PO 17 gm DAILY EMILY Administration Pregabalin 75 mg 11/29/17 21:00 12/06/17 10:38 Lyrica Cap(*) PO 75 mg BID EMILY Administration Senna 2 tab 11/26/17 21:00 12/05/17 21:00 Senokot Tab* PO 2 tab BEDTIME EMILY Administration Sodium Biphosphate/Sodium Phosphate 1 bottle 11/24/17 10:26 Fleet Enema* [place] DAILY PRN CONSTIPATION Throat Lozenges 1 eric 11/28/17 16:04 11/30/17 10:00 Chloraseptic Eric* PO 1 eric Q6H PRN Administration COUGH Trazodone HCl 50 mg 11/23/17 21:00 12/05/17 21:00 Desyrel Tab* PO 50 mg BEDTIME EMILY Administration Vital Signs: Vital Signs Temp Pulse Resp BP Pulse Ox 97.5 F 65 18 145/87 97 12/06/17 07:01 12/06/17 05:39 12/06/17 10:38 12/06/17 05:39 12/06/17 05:39 Lab Results: Chest x-ray 12/04/17 showed stigmata of COPD and resolution of prior left lower linear atelectasis Exam: GEN: no acute distress. Alert and appropriate. LUNGS: Clear to auscultation bilaterally. HEART: regular rate and rhythm ABDOMEN: +BS, soft, non-tender, non-distended EXTREMITIES: No edema NEUROLOGIC: Resting tremors bilaterally in arms/hands primarily. Assessment/Plan: 72yo man with Parkinson's disease s/p admission for exacerbation and treated for URI. 1. Parkinson's Disease: Sinemet. PT/OT. 2. Nausea: discontinue compazine. Order prn zofran. 3. Elevated WBC: resolved on labs 12/02. 4. Constipation: Miralax daily 5. COPD: Dulera 6. DVT Prophylaxis: Heparin S/Q 7. Advanced Directives: Full code 8. Back pain: Percocet 9. Anxiety: Diazepam PRN 10. CAD: Lipitor/ASA 11. Fibromyalgia: On Lyrica. May need to increase to 100 BID 12. Cough/dysphagia: speech therapy. Chest x-ray without signs of pneumonia on . 13. Dispo: Family training on Thursday and hopeful discharge home later in week. 12/06/17 10:55
[2017-12-06] MEDS: Ondansetron ODT TAB* 4 MG SL PRN (11:50)
[2017-12-06] MEDS: Atorvastatin* 20 MG TAB PO SCH (17:09)
[2017-12-06] MEDS: Senna TAB PO SCH (21:05)
[2017-12-06] MEDS: traZODone TAB* 50 MG TAB PO SCH (21:07)
[2017-12-07] MEDS: Heparin VIAL(*) 5000 UNITS/ML VIAL (FIVE THOUSAND) SUBCUT SCH ×3 (06:18→21:08)
[2017-12-07] MEDS: Omeprazole CAP* 20 MG PO SCH (06:19)
[2017-12-07] MEDS: Ondansetron ODT TAB* 4 MG SL PRN ×2 (06:23→14:33)
[2017-12-07] MEDS: Aspirin TAB* 325 MG PO SCH (08:32)
[2017-12-07] MEDS: CARBIDOPA PO SCH ×4 (08:32→21:08)
[2017-12-07] MEDS: LEVODOP PO SCH ×4 (08:32→21:08)
[2017-12-07] MEDS: Docusate CAP* 100 MG PO SCH ×2 (08:32→21:09)
[2017-12-07] MEDS: Metoprolol Tartrate TAB* 25 MG PO SCH ×2 (08:33→21:09)
[2017-12-07] MEDS: Pregabalin CAP(*) 25 MG PO SCH ×2 (08:35→21:13)
[2017-12-07] MEDS: oxyCODONE/Acetamin 5/325 MG* TAB PO PRN ×4 (08:37→21:08)
[2017-12-07] MEDS: Polyethylene Glycol 3350* 17 GM PACKET PO SCH (08:38)
[2017-12-07] MEDS: Mometasone/Formoter 100/5 MDI INH SCH ×2 (08:39→21:08)
--- NOTE | 2017-12-07 15:30 | PN ---
Progress Note Date of Service: 12/07/17 Note: TIMOTHY DELGADO was visited. Therapy notes read and reviewed. He is ready for discharge tomorrow. He still notes pain, wants to stay on Lyrica a little longer to see if it will help. Current Medications: Active Medications Generic Name Dose Route Start Last Admin Trade Name Freq PRN Reason Stop Dose Admin Acetaminophen 650 mg 11/23/17 13:18 11/30/17 16:44 Tylenol Tab* PO 650 mg Q6H PRN Administration FEVER/HEADACHE Aspirin 325 mg 11/24/17 09:00 12/07/17 08:32 Aspirin Tab* PO 325 mg DAILY EMILY Administration Atorvastatin Calcium 20 mg 11/23/17 17:00 12/06/17 17:09 Lipitor* PO 20 mg 1700 EMILY Administration Bisacodyl 10 mg 11/24/17 13:25 11/24/17 14:42 Dulcolax Supp* WI 10 mg DAILY PRN Administration CONSTIPATION Carbidopa/Levodopa 1 tab 11/23/17 17:00 12/07/17 13:23 Sinemet 25/100 Tab(*) PO 1 tab QID EMILY Administration Diazepam 10 mg 11/24/17 16:16 12/05/17 15:30 Valium Tab(*) PO 10 mg Q8H PRN Administration ANXIETY Docusate Sodium 100 mg 11/23/17 21:00 12/07/17 08:32 Colace Cap* PO 100 mg BID EMILY Administration Heparin Sodium (Porcine) 5,000 units 11/23/17 14:00 12/07/17 14:32 Heparin Vial(*) SUBCUT 5,000 units Q8HR EMILY Administration Magnesium Hydroxide 30 ml 11/23/17 13:18 11/24/17 07:43 Milk Of Magnesia Liq* PO 30 ml Q6H PRN Administration CONSTIPATION Metoprolol Tartrate 25 mg 11/23/17 21:00 12/07/17 08:33 Lopressor Tab* PO 25 mg BID EMILY Administration Mometasone Furoate/Formoterol Fumar 2 puff 11/23/17 21:00 12/07/17 08:39 Dulera 100/5 Mdi* INH 2 puff BID EMILY Administration Omeprazole 20 mg 11/24/17 06:00 12/07/17 06:19 Prilosec Cap* PO 20 mg 0600 EMILY Administration Ondansetron HCl 4 mg 12/06/17 10:53 12/07/17 14:33 Zofran Odt Tab* SL 4 mg Q6H PRN Administration NAUSEA/VOMITING Oxycodone/Acetaminophen 1 tab 11/23/17 13:37 12/07/17 13:23 Percocet 5/325 Tab* PO 1 tab Q4H PRN Administration PAIN - MODERATE TO SEVERE Polyethylene Glycol/Electrolytes 17 gm 11/27/17 09:00 12/07/17 08:38 Miralax* PO 17 gm DAILY EMILY Administration Pregabalin 75 mg 11/29/17 21:00 12/07/17 08:35 Lyrica Cap(*) PO 75 mg BID EMILY Administration Senna 2 tab 11/26/17 21:00 12/06/17 21:05 Senokot Tab* PO 2 tab BEDTIME EMILY Administration Sodium Biphosphate/Sodium Phosphate 1 bottle 11/24/17 10:26 Fleet Enema* WI DAILY PRN CONSTIPATION Throat Lozenges 1 eric 11/28/17 16:04 11/30/17 10:00 Chloraseptic Eric* PO 1 eric Q6H PRN Administration COUGH Trazodone HCl 50 mg 11/23/17 21:00 12/06/17 21:07 Desyrel Tab* PO 50 mg BEDTIME EMILY Administration Vital Signs: Vital Signs Temp Pulse Resp BP Pulse Ox 98.1 F 68 20 112/59 97 12/07/17 06:16 12/07/17 06:16 12/07/17 13:23 12/07/17 06:16 12/07/17 06:16 Exam: HEENT: EOMI LUNGS: Clear HEART: reg rhythm ABDOMEN: soft, distended. +BS EXTREMITIES: Resting tremor NEUROLOGIC: some rigidity. Assessment/Plan: 72yo man with Parkinson's disease s/p admission for exacerbation and treated for URI. 1. Parkinson's Disease: Sinemet. PT/OT. 2. Nausea: discontinue compazine. Order prn zofran. 3. Constipation: Miralax daily 6. COPD: Dulera 7. DVT Prophylaxis: Heparin S/Q 8. Advanced Directives: Full code 9. Back pain: Percocet 10. Anxiety: Diazepam PRN 11. CAD: Lipitor/ASA 12. Fibromyalgia: On Lyrica. May need to increase to 100 BID 13. Cough/dysphagia: speech therapy. 14. Dispo: D/c tomorrow 12/07/17 15:30
[2017-12-07] MEDS: Atorvastatin* 20 MG TAB PO SCH (17:37)
[2017-12-07] MEDS: traZODone TAB* 50 MG TAB PO SCH (21:09)
[2017-12-07] MEDS: Senna TAB PO SCH (21:09)
[2017-12-08] MEDS: oxyCODONE/Acetamin 5/325 MG* TAB PO PRN ×3 (03:20→13:25)
[2017-12-08] MEDS: Diazepam TAB(*) 5 MG PO PRN (03:30)
[2017-12-08] MEDS: Omeprazole CAP* 20 MG PO SCH (05:09)
[2017-12-08] MEDS: Heparin VIAL(*) 5000 UNITS/ML VIAL (FIVE THOUSAND) SUBCUT SCH (05:10)
[2017-12-08 05:22] VITALS: BP 136/71
[2017-12-08] MEDS: Polyethylene Glycol 3350* 17 GM PACKET PO SCH (08:27)
[2017-12-08] MEDS: Aspirin TAB* 325 MG PO SCH (08:27)
[2017-12-08] MEDS: LEVODOP PO SCH ×2 (08:28→13:25)
[2017-12-08] MEDS: Metoprolol Tartrate TAB* 25 MG PO SCH (08:28)
[2017-12-08] MEDS: CARBIDOPA PO SCH ×2 (08:28→13:25)
[2017-12-08] MEDS: Mometasone/Formoter 100/5 MDI INH SCH (08:28)
[2017-12-08] MEDS: Docusate CAP* 100 MG PO SCH (08:28)
[2017-12-08] MEDS: Pregabalin CAP(*) 25 MG PO SCH (08:30)
--- NOTE | 2017-12-10 16:12 | DS ---
CC: Filemon Wetzel MD DISCHARGE SUMMARY: DATE OF ADMISSION: 11/23/17 DATE OF DISCHARGE: 12/08/17 DISCHARGE DIAGNOSES: 1. Parkinson's disease. 2. Fibromyalgia. 3. Chronic low back pain. 4. Coronary artery disease. 5. Hypertension. 6. Hyperlipidemia. HISTORY OF PRESENT ILLNESS/HOSPITAL COURSE: For complete history of the events leading up to his [facility] stay, please see the history and physical dictated by me on 11/23/17. While on the rehab unit, daniel briseno patient did report significant pain as he began to do more. He also developed significant constipa tion which pre-dated his stay on the rehab unit. He was given lactulose with eventual results. Foll owing this, the patient was resumed on MiraLAX which he had tried prior to his hospitalization. He a lso had been put on Amitiza which he did not think was helpful. The patient otherwise had intermitte nt nausea which was alleviated by Compazine. The Compazine was later changed to Zofran which had not worked previously for him as he felt the Compazine was making his tremors worse. The patient erik vee was medically stable. He was seen by Physical Therapy and Occupational Therapy while on the reha b unit. He did make gains with both disciplines. With physical therapy at the time of admission, daniel briseno patient required min assist for bed mobility, min assist for transfers, min assist for ambulation. With occupational therapy at the time of admission, the patient required min assist for upper body dr essroma, mod assist for lower body dressing, mod assist for toileting, supervision for toilet transfer s. By the time of discharge, the patient was independent transfers, independent ambulating. He was able to ambulate 150 feet with a walker with occupational therapy. At the time of discharge, the pat ient was min assist for upper body dressing, max assist for lower body dressing, and toileting he sti ll required total assistance. His came in for family training prior to discharge. The patient was discharged home on 12/08/17. The patient also saw speech therapy while on the rehab unit, jaimie briseno of some complaints with his swallowing. He was downgraded to a mechanical soft diet. This seemed to help his swallowing. The patient as mentioned was discharged home on 12/08/17. DISCHARGE DIET: Mechanical ground. DISCHARGE MEDICATIONS: Included: 1. Aspirin 325 mg daily. 2. Sinemet 25/100, 1 tablet 4 times a day. 3. Valium 10 mg every 8 hours as needed. 4. Lopressor 25 mg twice daily. 5. Omeprazole 20 mg daily. 6. Percocet 5/325 mg 1 tablet every 4 hours as needed with a maximum daily dose of 4. 7. MiraLAX 17 g in water daily. 8. Lyrica 75 mg twice daily. 9. Trazodone 50 mg at bedtime. 10. Simvastatin 40 mg daily. SERVICES AFTER DISCHARGE: Through [facility], he will have home nursing, home physical therapy, a nd a home health aide. FOLLOWUP: Follow up with Dr. Filemon Wetzel, his primary care doctor in 4 to 6 weeks. [id number]/[facility] #: [id number]
== END 2017-12-08 13:35 | disposition home or self-care (01) | DRG 57 ==
LOC: PMRU 12:09
PROVIDERS: ADMIT Physical Medicine & Rehabilitation; ATTEND Physical Medicine & Rehabilitation
PROC: F07Z5ZZ Bed Mobility Treatment (ICD-10-PCS; principal; 2017-11-23)
PROC: F07Z9ZZ Gait Training/Functional Ambulation Treatment (ICD-10-PCS; 2017-11-23)
PROC: F07Z8ZZ Transfer Training Treatment (ICD-10-PCS; 2017-11-23)
PROC: F08Z0ZZ Bathing/Showering Techniques Treatment (ICD-10-PCS; 2017-11-23)
PROC: F08Z1ZZ Dressing Techniques Treatment (ICD-10-PCS; 2017-11-23)
PROC: F08Z3ZZ Feeding/Eating Treatment (ICD-10-PCS; 2017-11-23)
DX: G20 Parkinson's disease (principal); I11.9 Hypertensive heart disease without heart failure; J44.9 Chronic obstructive pulmonary disease, unspecified; R13.10 Dysphagia, unspecified; J98.11 Atelectasis; I25.10 Atherosclerotic heart disease of native coronary artery without angina pectoris; E78.5 Hyperlipidemia, unspecified; M54.5 Low back pain; K59.09 Other constipation; F41.9 Anxiety disorder, unspecified; M79.7 Fibromyalgia; R05 Cough; R11.0 Nausea; Z79.82 Long term (current) use of aspirin; Z79.01 Long term (current) use of anticoagulants; Z79.899 Other long term (current) drug therapy
CPT/HCPCS: 36415; 71046; 80053; 85025; 94640; A9270-GY; G0515-GO; J1644; Q0164

== ENCOUNTER 2017-12-26 23:04 | Inpatient (IN) | payer MEDICARE ==
[2017-12-27] MEDS ORDERED: Morphine INJ* 4 MG/ML 1 ML SYRINGE (NEW SYRINGE VERSION) IV ONE (00:40)
[2017-12-27] MEDS ORDERED: Ondansetron INJ* 2 MG/ML VIAL IV ONE (00:41)
[2017-12-27] MEDS ORDERED: Morphine VIAL* 4 MG/ML VIAL (1 ml vial) IV ONE (01:06)
[2017-12-27 01:08] LABS: ABS Basophils 0.1 10^3/ul (0-0.2); ABS Eosinophils 0.1 10^3/ul (0-0.6); ABS Lymphocytes 2.5 10^3/ul (1.0-4.8); ABS Monocytes 0.7 10^3/ul (0-0.8); ABS Neutrophils 6.4 10^3/ul (1.5-7.7); ABS Nucleated RBC 0 10^3/ul; Eosinophil % 1.2 % (0-6); Hematocrit 40 % (42-52); Hemoglobin 13.6 g/dl (14.0-18.0); Lymphocyte % 25.5 % (25-47); Mean Corpuscular HGB Conc 34 g/dl (31-36); Mean Corpuscular Hemoglobin 32 pg (27-31); Mean Corpuscular Volume 93 fL (80-94); Mean Platelet Volume 9.1 um3 (7.4-10.4); Nucleated Red Blood Cells % 0; Platelet Count 172 10^3/ul (150-450); Red Blood Count 4.31 10^6/ul (4.0-5.4); Red Cell Distribution Width 14 % (10.5-15); White Blood Count 9.7 10^3/ul (3.5-10.8)
[2017-12-27 01:15] LABS: INR 0.98 (0.77-1.02)
[2017-12-27 01:19] LABS: EGFR Non-African American 105.3 (>60)
[2017-12-27] MEDS ORDERED: HYDROmorphone INJ* 2 MG/ML CARPUJECT SYRINGE IV SLOW PU ONE (01:25)
--- NOTE | 2017-12-27 01:55 | ED ---
Eric Olson Tecjoon, scribsharon for Tu Ding MD on 12/27/17 at 0039 . GI/ HPI - HPI Summary HPI Summary: This patient is a 72 year old male BIBA to [facility] accompanied by with a chief complaint of bedsore since approx. 5 weeks ago. Patients states that the sores continually comes and goes. The pain is described as burning. The pain is rated 9/10 in severity. Symptoms aggravated by sitting. Symptoms alleviated by nothing. The patient treated the pain with oxycodone. Patient additionally reports myalgia. - History of Current Complaint Chief Complaint: EDSoftTissueLowExtr Time Seen by Provider: 12/26/17 23:22 Stated Complaint: BED SORES Hx Obtained From: Patient Onset/Duration: Started Weeks Ago, Still Present Timing: Constant Severity: Severe Pain Intensity: 9 - /10 Location of Pain: Rectal Associated Signs and Symptoms: Positive: Other: - myalgia Aggravating Factor(s): Nothing Alleviating Factor(s): Nothing - Additional Pertinent History Primary Care Physician: NORBERTO - Allergy/Home Medications Allergies/Adverse Reactions: Allergies Allergy/AdvReac Type Severity Reaction Status Date / Time iohexol Allergy Difficulty Verified 11/18/17 01:56 Breathing PMH/Surg Hx/FS Hx/Imm Hx Previously Healthy: No Endocrine/Hematology History: Reports: Hx Diabetes - BORDERLINE TYPE 2, CONTROLLED WITH DIET, NO MEDS Denies: Hx Anticoagulant Therapy, Hx Systemic Lupus Erythematosus Cardiovascular History: Reports: Hx Angina - NONE SINCE 2006 DC, Hx Coronary Artery Disease - STENT IN RCA, Hx Hypertension - ON MEDICATION FOR, Hx Myocardial Infarction, Hx Rheumatic Fever - YOUNG CHILD Denies: Hx Congestive Heart Failure, Hx Pacemaker/ICD Respiratory History: Denies: Hx Asthma, Hx Chronic Obstructive Pulmonary Disease (COPD) GI History: Reports: Hx Gastroesophageal Reflux Disease - TAKES MEDS JUST PRN, Hx Jaundice - as a child Denies: Other GI Disorders History: Reports: Hx Benign Prostatic Hyperplasia, Hx Kidney Stones - HISTORY OF, Other Problems/Disorders - ENLARGED PROSTATE Denies: Hx Dialysis, Hx Renal Disease Musculoskeletal History: Reports: Hx Arthritis - ALL OVER, Hx Back Problems, Hx Fibromyalgia, Other Musculoskeletal History - parkinsons Denies: Hx Rheumatoid Arthritis Sensory History: Reports: Hx Cataracts - BILATERAL, Hx Contacts or Glasses, Hx Vision Problem Denies: Hx Hearing Aid Opthamlomology History: Reports: Hx Cataracts - BILATERAL, Hx Contacts or Glasses, Hx Vision Problem Neurological History: Reports: Hx Headaches, Hx Migraine, Hx Transient Ischemic Attacks (TIA), Other Neuro Impairments/Disorders - Hx Parkinsons Denies: Hx Dementia, Hx Developmental Delay Psychiatric History: Reports: Hx Anxiety - PRN MEDICATION FOR, Hx Depression - ROUTINE MEDICATION FOR - Cancer History Hx Chemotherapy: No - Surgical History Surgery Procedure, Year, and Place: . 2006 CARDIAC stent placed to [facility] in [place]. 2010 lithotri[place] [facility] [place]. 2010 and 2011 DORSAL STIMULATOR in [place]. 02/2016-HEART CATHETERIZATION-[facility] [place] Hx Anesthesia Reactions: Yes - UNSURE IF THE REACTION 02/2016 WAS FROM CONTRAST OR FROM SEDATION - Immunization History Date of Tetanus Vaccine: 2008 Date of Influenza Vaccine: Has not received Infectious Disease History: No Infectious Disease History: Denies: Hx Clostridium Difficile, Hx Hepatitis, Hx Human Immunodeficiency Virus (HIV), Traveled Outside the [place] in Last 30 Days - Family History Known Family History: Positive: Other - Colon CA - Social History Lives: With Family Alcohol Use: Rare Hx Substance Use: No Substance Use Type: Reports: None Hx Tobacco Use: Yes Smoking Status (MU): Former Smoker Type: Cigarettes Amount Used/How Often: 1 PPD- 1 1/2 PPD X 37 YEARS Have You Smoked in the Last Year: No Review of Systems Negative: Fever Positive: Other - bed sore Positive: Myalgia Positive: Other - pus-filled sore on left cheek All Other Systems Reviewed And Are Negative: Yes Physical Exam - Summary Physical Exam Summary: VITAL SIGNS: Reviewed. GENERAL: Patient is a well-developed and nourished male who is lying comfortable in the stretcher. Patient is not in any acute respiratory distress. HEAD AND FACE: No signs of trauma. No ecchymosis, hematomas or skull depressions. No sinus tenderness. EYES: PERRLA, EOMI x 2, No injected conjunctiva, no nystagmus. EARS: Hearing grossly intact. Ear canals and tympanic membranes are within normal limits. MOUTH: Oropharynx within normal limits. NECK: Supple, trachea is midline, no adenopathy, no JVD, no carotid bruit, no c- spine tenderness, neck with full ROM. CHEST: Symmetric, no tenderness at palpation LUNGS: Clear to auscultation bilaterally. No wheezing or crackles. CVS: Regular rate and rhythm, S1 and S2 present, no murmurs or gallops appreciated. ABDOMEN: Soft, non-tender. No signs of distention. No rebound no guarding, and no masses palpated. Bowel sounds are normal. EXTREMITIES: Static tremors of both upper extremities. RECTAL: Skin abrasion over the secrum area bilateral. NEURO: Alert and oriented x 3. No acute neurological deficits. Speech is normal and follows commands. SKIN: Collection over the left side of cheek, oozing pus, culture sent Triage Information Reviewed: Yes Vital Signs On Initial Exam: Initial Vitals Temp Pulse Resp BP Pulse Ox 98.6 F 80 20 132/83 95 12/26/17 23:20 12/26/17 23:20 12/26/17 23:20 12/26/17 23:20 12/26/17 23:20 Vital Signs Reviewed: Yes Diagnostics - Vital Signs Vital Signs Temp Pulse Resp BP Pulse Ox 12/26/17 23:20 98.6 F 80 20 132/83 95 - Laboratory Result Diagrams: 12/27/17 00:55 12/27/17 00:55 Lab Statement: Any lab studies that have been ordered have been reviewed, and results considered in the medical decision making process. GIGU Course/Dx - Course Course Of Treatment: This patient is a 72 year old male BIBA to [facility] accompanied by with a chief complaint of bedsore since approx. 5 weeks ago. Patients states that the sores continually comes and goes. Bloodwork Obtained. Urinalysis Obtained Test results with no significant abnormalities. In the ED course the patient was given hydromorphone, morphine, Zofran. We discussed patient care with Dr. Tay (Hospitalist) and they agreed to accept the patient. Patient will be admitted with a dx of decubitus ulcer, low back pain, Parkinsons disease. The patient is agreeable with this plan. - Diagnoses Provider Diagnoses: Low back pain, Parkinson disease, Decubitus ulcer - Physician Notifications Discussed Care Of Patient With: Carlos Tay - Hospitalist Time Discussed With Above Provider: 01:45 - We discussed patient care with Dr. Tay (Hospitalist) and they agreed to accept the patient. Instructed by Provider To: Admit As Inpatient Discharge - Sign-Out/Discharge Documenting (check all that apply): Discharge - admit - Discharge Plan Condition: Stable Disposition: ADMITTED TO [facility] Referrals: Filemon Wetzel MD [Primary Care Provider] - The documentation as recorded by the Eric lamar Tecjoon accurately reflects the service I personally performed and the decisions made by , Tu Ding MD.
[2017-12-27 02:05] LABS: Urine Appearance Clear; Urine Blood 1+ (Negative); Urine Color Yellow; Urine Ketones Trace (Negative); Urine Protein Negative (Negative); Urine Specific Gravity 1.014 (1.010-1.030); Urine Urobilinogen Negative (Negative)
[2017-12-27] MEDS ORDERED: oxyCODONE/Acetamin 5/325 MG* TAB PO PRN (02:50)
[2017-12-27] MEDS ORDERED: Nitroglycerin TAB 0.4 MG* 0.4 MG TAB SL PRN (02:50)
[2017-12-27] MEDS ORDERED: Acetaminophen TAB* 325 MG PO PRN (02:50)
[2017-12-27] MEDS ORDERED: Meclizine TAB* 12.5 MG PO PRN (02:50)
[2017-12-27] MEDS ORDERED: Enoxaparin(*) 40 MG/0.4 ML SYR SUBCUT SCH (04:00)
[2017-12-27] MEDS: Mometasone/Formoter 100/5 MDI INH SCH ×2 (07:28→21:12)
[2017-12-27] MEDS: Carbidopa/Levodop 25/100 MG TAB(*) PO SCH ×4 (08:48→20:10)
[2017-12-27] MEDS: Multivitamins/Minerals TAB PO SCH (08:48)
[2017-12-27] MEDS: Metoprolol Tartrate TAB* 25 MG PO SCH ×2 (08:48→20:10)
[2017-12-27] MEDS: Pregabalin CAP(*) 25 MG PO SCH ×2 (08:48→20:10)
[2017-12-27] MEDS: Senna TAB PO SCH (08:48)
[2017-12-27] MEDS: Aspirin TAB* 325 MG PO SCH (08:48)
[2017-12-27] MEDS: Ibuprofen TAB* 400 MG PO PRN (08:48)
[2017-12-27] MEDS: Polyethylene Glycol 3350* 17 GM PACKET PO SCH (08:49)
--- NOTE | 2017-12-27 10:11 | HP ---
CC: Dr. Wetzel * HISTORY AND PHYSICAL: DATE OF ADMISSION: 12/27/17 CHIEF COMPLAINT: Back pain. HISTORY OF PRESENT ILLNESS: Mr. Ruiz is a 72-year-old man with advanced Parkinson's disease, who came to the emergency department this evening with weeks of worsening low back and buttocks pain. The patient has a known bedsore on his buttocks, which has progressed at home and also wax and wane according to his . The patient spends all his time in a recliner chair and cannot get up on his own, his cannot get him up. They do report they have a new gel pad for the recliner, which seemed to help for a few days, but then did not help. The patient was admitted to this hospital 11/18/17 to 11/23/17 on the acute medical floor for weakness and decubitus ulcers. He was once again transferred to [facility] from 11/23/17 to 12/08/17 where he had improvement in his ability to move around and was walking with a walker upon discharge with minimal assist to get up from the chair. The decubiti had healed according to his . However, the patient still cannot walk when he gets up and she has trouble getting him up from the chair. Today what led to the immediate trip to the emergency department was one bandage removed from the buttocks further skin tore. The pain was intractable. He has not been able to sleep for 2 days. PAST MEDICAL HISTORY: Includes coronary artery disease, history of [place], Parkinson's disease, hyperlipidemia, hypertension, chronic back pain, history of TIA, fibromyalgia, COPD, and kidney stones. PAST SURGICAL HISTORY: He has had 2 spinal stimulators implanted, rotator cuff surgery on the left, right knee meniscus repair on the right. MEDICATIONS: On admission are: 1. Acetaminophen as needed. 2. Aspirin 325 mg p.o. daily. 3. Carbidopa/levodopa 25/100 one tab p.o. q.i.d. 4. Valium 10 mg p.o. q.8 hours p.r.n. pain or muscle spasm. 5. Ibuprofen 400 mg p.o. q.6 hours p.r.n. pain. 6. Meclizine 12.5 to 25 mg p.o. t.i.d. p.r.n. 7. Metoprolol tartrate 25 mg p.o. b.i.d. 8. Mometasone/formoterol 2 puffs inhaled b.i.d. 9. Multivitamin 1 tab p.o. everyday. 10. Nitroglycerin 0.4 mg sublingual q.5 minutes x3 p.r.n. chest pain. 11. Oxycodone/acetaminophen 5/325 one tablet p.o. q.4 hours p.r.n. pain. 12. MiraLAX 17 g p.o. daily mixed with water. 13. Lyrica 75 mg p.o. b.i.d. 14. Senna 1 tab p.o. everyday. 15. Simvastatin 40 mg p.o. q.h.s. 16. Trazodone 50 mg p.o. q.h.s. ALLERGIES: To IOHEXOL, which caused dyspnea. FAMILY HISTORY: Notable for mother of unknown causes. Father of CVA and colon cancer. His son of an aircraft accident. SOCIAL HISTORY: He is retired from [employer]. He is . He has 1 child. His is his healthcare proxy. He quit tobacco in 1988. No alcohol or drug use. REVIEW OF SYSTEMS: The patient denies any fevers, weight loss, anorexia. The patient denies any cough or hemoptysis. The patient denies any chest pain or palpitations. The patient denies any hematuria or dysuria. Remainder of 14- point review of systems is negative other than mentioned in the HPI. PHYSICAL EXAMINATION GENERAL: He is alert, in no acute distress. VITAL SIGNS: Temperature is 37.0, pulse is 80, respirations 18, blood pressure is 132/83, oxygen saturation is 95%. HEENT: Head is normocephalic, atraumatic. Sclerae anicteric. Pupils are equal , round, reactive to light and accommodation. Oropharynx is moist. No lesions. NECK: No JVD. No carotid bruits. No thyromegaly. LUNGS: Clear to auscultation and percussion bilaterally. HEART: Regular rate and rhythm with 2/6 systolic murmur at the left upper sternal border. ABDOMEN: Distended, soft, nontender. Positive bowel sounds. No masses. EXTREMITIES: No peripheral edema. MUSCULOSKELETAL: Notable for overall stiffness and tenderness at all bony prominences. SKIN: Notable for sacrum looked fine. The buttocks has a 2 x 3 cm irregular stage II ulcers on matching sides of the buttocks and gluteal folds superior to the anus and inferior to the gluteal crease. The left cheek of his face has a 1 -cm sebaceous cyst with draining purulent material. NEUROLOGIC: Cranial nerves II through XII are intact. He has resting tremors that are severe in both hands and his mouth. He is alert and oriented x3. LABORATORY DATA: Sodium 139, potassium 4.4, chloride 104, bicarb 29, BUN 24, creatinine 0.73, glucose 105, calcium 9.5, magnesium 2.0, albumin 4.0. AST 14, ALT 3, bilirubin 0.5. INR 0.98, PTT is 33.6. White count 9.7, hemoglobin 13.6 , hematocrit 40%, platelets 172. Urinalysis was trace ketones, 1+ blood, 2+ red cells. ASSESSMENT AND PLAN: A 72-year-old man with Parkinson's, who has failed to stay mobilized at home and has now developed decubitus ulcers on his buttocks. The patient will be admitted to the hospital. These are noninfected decubitus ulcers with turning and positioning and air mattress. Nursing can work to get him up to his feet every day. There is some risk of infection and sepsis from the decubiti, but at this point, they do not look infected. Caution was taken in the emergency room, this could be followed and we can start antibiotics if symptoms develop. The patient essentially needs to have alf facility placement as he has failed to do well at home despite almost 3 weeks stay with acute rehab here at this hospital. I reviewed his medication list and I do not think that 10 mg 3 times a day of Valium is necessarily safe at this age group. I will reduce the dose to 5 mg. We will see how he does. Code status is full. This was discussed with the patient and his . DVT prophylaxis will be with subcutaneous Lovenox due to his bedbound status and his age. [id number]/[facility] #: [id number] [facility]
--- NOTE | 2017-12-27 10:42 | PN ---
Subjective Date of Service: 12/27/17 Interval History: Patient seen and examined at bedside. Denies fever, chills, shortness of breath , chest discomfort, N/V/D. Pt states that he has a a large cyst on his left side of face for awhile and about a week ago it opened up at home and has been draining a liquid drainage. He has a history of sebaceous cysts in the past. He also complaints of pain to his buttocks. Discussed with his the need for HA vs SNF. Family History: Unchanged from Admission Social History: Unchanged from Admission Past Medical History: Unchanged from Admission Objective Active Medications: Acetaminophen (Tylenol Tab*) 650 mg PO Q6H PRN Reason: FEVER/PAIN Aspirin (Aspirin Tab*) 325 mg PO DAILY [facility] Atorvastatin Calcium (Lipitor*) 20 mg PO BEDTIME [facility] Carbidopa/Levodopa (Sinemet 25/100 Tab(*)) 1 tab PO QID [facility] Diazepam (Valium Tab(*)) 5 mg PO Q8H PRN Reason: ANXIETY Enoxaparin Sodium (Lovenox(*)) 40 mg SUBCUT DAILY@0600 [facility] Ibuprofen (Motrin Tab*) 400 mg PO Q6H PRN Reason: fever/pain Meclizine HCl (Antivert Tab*) 12.5 mg PO TID PRN Reason: DIZZINESS Metoprolol Tartrate (Lopressor Tab*) 25 mg PO BID [facility] Mometasone Furoate/Formoterol Fumar (Dulera 100/5 Mdi*) 2 puff INH BID [facility] Multivitamins/Minerals (Theragran/Minerals Tab*) 1 tab PO DAILY [facility] Nitroglycerin (Nitroglycerin Tab 0.4 Mg*) 0.4 mg SL Q5M PRN Reason: PAIN Oxycodone/Acetaminophen (Percocet 5/325 Tab*) 1 tab PO Q4H PRN Reason: PAIN - MODERATE TO SEVERE Polyethylene Glycol/Electrolytes (Miralax*) 17 gm PO DAILY [facility] Pregabalin (Lyrica Cap(*)) 75 mg PO BID [facility] Senna (Senokot Tab*) 1 tab PO DAILY [facility] Trazodone HCl (Desyrel Tab*) 50 mg PO BEDTIME [facility] Vital Signs - 8 hr 12/27/17 12/27/17 12/27/17 03:20 04:08 04:54 Temperature 98.0 F 97.4 F Pulse Rate 85 74 Respiratory 20 18 18 Rate Blood Pressure 142/83 125/63 (mmHg) O2 Sat by Pulse 98 97 Oximetry 12/27/17 12/27/17 12/27/17 07:29 07:33 08:48 Temperature Pulse Rate 78 Respiratory 14 14 18 Rate Blood Pressure (mmHg) O2 Sat by Pulse 96 Oximetry Oxygen Devices in Use Now: None Appearance: NAD, laying in bed Respiratory: Symmetrical Chest Expansion and Respiratory Effort, Clear to Auscultation Cardiovascular: NL Sounds; No Murmurs; No JVD, RRR Abdominal: NL Sounds; No Tenderness; No Distention Extremities: No Edema Skin: - - Area to right and left buttock with redness. Draining cyst to left cheeck Neurological: Alert and Oriented x 3, NL Muscle Strength and Tone Nutrition: Taking PO's Result Diagrams: 12/27/17 00:55 12/27/17 00:55 Assess/Plan/Problems-Billing Assessment: Mr. Ruiz is a 72 yo male with PMH significant for Parkinson's disease, HTN, HLD , fibromyalgia, vertigo, [place], TIA, chronic back pain, CAD who presented to the emergency room with complaints of a decubitus ulcer on his buttocks. - Patient Problems (1) Sacral decubitus ulcer Comment: - Healing - Wound care consult, pending - Continue wound care - Recommended off loading device, frequent T+P, and zinc cream (2) Parkinson disease Code(s): G20 - PARKINSON'S DISEASE SNOMED Code(s): 57439273 Comment: - No changes in medical management at this time - Continue supportive care (3) Sebaceous cyst Code(s): L72.3 - SEBACEOUS CYST SNOMED Code(s): 138232535 Comment: - Left cheek - Draining purulent drainage - Wash with warm water and apply bacitracin ointment - Will give a 5 day course of Keflex (4) HTN (hypertension) Code(s): I10 - ESSENTIAL (PRIMARY) HYPERTENSION SNOMED Code(s): 81028814 Comment: - SBP 120-140's - Continue metoprolol (5) HLD (hyperlipidemia) Code(s): E78.5 - HYPERLIPIDEMIA, UNSPECIFIED SNOMED Code(s): 42040813 Comment: - Continue statin (6) CAD (coronary artery disease) Code(s): I25.10 - ATHSCL HEART DISEASE OF [place] CORONARY ARTERY W/O ANG PCTRS SNOMED Code(s): 80707070 Comment: - Asymptomatic - Continue aspirin, Metoprolol and statin (7) COPD exacerbation Code(s): J44.1 - CHRONIC OBSTRUCTIVE PULMONARY DISEASE W (ACUTE) EXACERBATION SNOMED Code(s): 166348578 Comment: - No signs of exacerbation - COPD suspected based on symptoms, cxray findings and decades long history of smoking. - Continue dulera. - Recommend outpatient follow up with PFTs for definitive diagnosis. (8) Chronic pain Code(s): G89.29 - OTHER CHRONIC PAIN SNOMED Code(s): 99497219 Comment: - Continue percocet PRN (9) History of TIA (transient ischemic attack) Comment: - Continue ASA and statin (10) DVT prophylaxis Code(s): XJS7965 - SNOMED Code(s): 485398329 Comment: - Lovenox (11) Full code status Code(s): Z78.9 - OTHER SPECIFIED HEALTH STATUS SNOMED Code(s): 390313782 Status and Disposition: Inpatient. Plan for HA vs SNF. Attending: Marina Padilla
[2017-12-27] MEDS: oxyCODONE/Acetamin 5/325 MG* TAB PO PRN ×2 (12:42→17:03)
[2017-12-27] MEDS: Cephalexin CAP* 500 MG PO SCH ×2 (12:43→20:10)
[2017-12-27] MEDS: Atorvastatin* 20 MG TAB PO SCH (20:10)
[2017-12-27] MEDS: traZODone TAB* 50 MG TAB PO SCH (20:10)
[2017-12-28] MEDS: Enoxaparin(*) 40 MG/0.4 ML SYR SUBCUT SCH (05:27)
[2017-12-28] MEDS: oxyCODONE/Acetamin 5/325 MG* TAB PO PRN ×5 (05:27→22:32)
[2017-12-28] MEDS: Mometasone/Formoter 100/5 MDI INH SCH ×2 (09:12→20:51)
[2017-12-28] MEDS: Carbidopa/Levodop 25/100 MG TAB(*) PO SCH ×4 (10:00→22:31)
[2017-12-28] MEDS: Diazepam TAB(*) 5 MG PO PRN (10:01)
[2017-12-28] MEDS: Cephalexin CAP* 500 MG PO SCH ×3 (11:55→22:31)
[2017-12-28] MEDS: Polyethylene Glycol 3350* 17 GM PACKET PO SCH (12:03)
[2017-12-28] MEDS: Pregabalin CAP(*) 25 MG PO SCH ×2 (12:06→22:31)
[2017-12-28] MEDS: Senna TAB PO SCH (12:07)
[2017-12-28] MEDS: Multivitamins/Minerals TAB PO SCH (12:07)
[2017-12-28] MEDS: Metoprolol Tartrate TAB* 25 MG PO SCH ×2 (12:07→22:31)
[2017-12-28] MEDS: Aspirin TAB* 325 MG PO SCH (12:07)
--- NOTE | 2017-12-28 14:07 | PN ---
Subjective Date of Service: 12/28/17 Interval History: Patient seen and examined at bedside with present. Pt reports increase in lower back pain since he was placed in a lift earlier today. Additionally he complains of new right hip and leg pain. Pt is unable to move right foot or toes and states that this is new today. Pt's states that Pt previously had a minor right foot drop. Pt also reports numbness to his right leg, but has good feeling. When asked to describe the numbness, he reports feeling like it is asleep. Pt is requesting increased pain medications, we discussed that narcotics are not recommended with back pain and that the Percocet was increased and is helping the pain. We also discussed trying non-pharmacological treatments for his pain. Family History: Unchanged from Admission Social History: Unchanged from Admission Past Medical History: Unchanged from Admission Objective Active Medications: Acetaminophen (Tylenol Tab*) 650 mg PO Q6H PRN Reason: FEVER/PAIN Aspirin (Aspirin Tab*) 325 mg PO DAILY [facility] Atorvastatin Calcium (Lipitor*) 20 mg PO BEDTIME [facility] Carbidopa/Levodopa (Sinemet 25/100 Tab(*)) 1 tab PO QID [facility] Cephalexin HCl (Keflex Cap*) 500 mg PO TID [facility] Stop: 01/01/18 13:59 Diazepam (Valium Tab(*)) 5 mg PO Q8H PRN Reason: ANXIETY Enoxaparin Sodium (Lovenox(*)) 40 mg SUBCUT DAILY@0600 [facility] Ibuprofen (Motrin Tab*) 400 mg PO Q6H PRN Reason: fever/pain Meclizine HCl (Antivert Tab*) 12.5 mg PO TID PRN Reason: DIZZINESS Metoprolol Tartrate (Lopressor Tab*) 25 mg PO BID [facility] Mometasone Furoate/Formoterol Fumar (Dulera 100/5 Mdi*) 2 puff INH BID [facility] Multivitamins/Minerals (Theragran/Minerals Tab*) 1 tab PO DAILY [facility] Nitroglycerin (Nitroglycerin Tab 0.4 Mg*) 0.4 mg SL Q5M PRN Reason: PAIN Oxycodone/Acetaminophen (Percocet 5/325 Tab*) 2 tab PO Q4H PRN Reason: PAIN - MODERATE TO SEVERE Oxycodone/Acetaminophen (Percocet 5/325 Tab*) 1 tab PO Q4H PRN Reason: PAIN - MILD TO MODERATE Polyethylene Glycol/Electrolytes (Miralax*) 17 gm PO DAILY [facility] Pregabalin (Lyrica Cap(*)) 75 mg PO BID [facility] Senna (Senokot Tab*) 1 tab PO DAILY [facility] Trazodone HCl (Desyrel Tab*) 50 mg PO BEDTIME [facility] Vital Signs - 8 hr 12/28/17 12/28/17 12/28/17 07:49 10:00 10:01 Temperature 97.6 F Pulse Rate 81 Respiratory 18 20 20 Rate Blood Pressure 118/63 (mmHg) O2 Sat by Pulse 92 Oximetry 12/28/17 12/28/17 12:06 13:26 Temperature Pulse Rate Respiratory 18 18 Rate Blood Pressure (mmHg) O2 Sat by Pulse Oximetry Oxygen Devices in Use Now: None Appearance: NAD, laying in bed Respiratory: Symmetrical Chest Expansion and Respiratory Effort, Clear to Auscultation Cardiovascular: NL Sounds; No Murmurs; No JVD, RRR Abdominal: NL Sounds; No Tenderness; No Distention Extremities: - - Unable to plantar or dorsi flex the right foot, unable to wiggle the toes on the right. Skin: - - Subaceous Cyst to left cheek Neurological: Alert and Oriented x 3, - - Good sensation to the right LE. Bilateral LE tremors Nutrition: Taking PO's Result Diagrams: 12/27/17 00:55 12/27/17 00:55 Assess/Plan/Problems-Billing Assessment: Mr. Ruiz is a 72 yo male with PMH significant for Parkinson's disease, HTN, HLD , fibromyalgia, vertigo, [place], TIA, chronic back pain, CAD who presented to the emergency room with complaints of a decubitus ulcer on his buttocks. - Patient Problems (1) Sacral decubitus ulcer Comment: - Not really sacral, but more bilateral buttocks - Healing - Wound care consult, pending - Recommend off loading device, frequent T+P, and zinc cream (2) Parkinson disease Code(s): G20 - PARKINSON'S DISEASE SNOMED Code(s): 24042242 Comment: - No changes in medical management at this time - Continue supportive care (3) Sebaceous cyst Code(s): L72.3 - SEBACEOUS CYST SNOMED Code(s): 870905081 Comment: - Left cheek, draining purulent drainage - Wound culture pending - Wash with warm water and apply bacitracin ointment - Continue Keflex, day 2/5 (4) HTN (hypertension) Code(s): I10 - ESSENTIAL (PRIMARY) HYPERTENSION SNOMED Code(s): 30948771 Comment: - SBP 110-120's - Continue metoprolol (5) HLD (hyperlipidemia) Code(s): E78.5 - HYPERLIPIDEMIA, UNSPECIFIED SNOMED Code(s): 48606028 Comment: - Continue statin (6) CAD (coronary artery disease) Code(s): I25.10 - ATHSCL HEART DISEASE OF [place] CORONARY ARTERY W/O ANG PCTRS SNOMED Code(s): 40797215 Comment: - Asymptomatic - Continue aspirin, Metoprolol and statin (7) COPD exacerbation Code(s): J44.1 - CHRONIC OBSTRUCTIVE PULMONARY DISEASE W (ACUTE) EXACERBATION SNOMED Code(s): 237343575 Comment: - No signs of exacerbation - COPD suspected based on symptoms, cxray findings and decades long history of smoking. - Continue dulera. - Recommend outpatient follow up with PFTs for definitive diagnosis. (8) Chronic pain Code(s): G89.29 - OTHER CHRONIC PAIN SNOMED Code(s): 98782304 Comment: - Chronic back - Now with complaints of right sided sciatica, unclear if this is really new or old. Now also has a worsened right foot drop - Will check a lumbar CT, unable to get an MRI d/t hx spinal stimulator - Continue percocet PRN (increased) (9) History of TIA (transient ischemic attack) Comment: - Continue ASA and statin (10) DVT prophylaxis Code(s): NOL8009 - SNOMED Code(s): 627076867 Comment: - Lovenox (11) Full code status Code(s): Z78.9 - OTHER SPECIFIED HEALTH STATUS SNOMED Code(s): 539782131 Status and Disposition: Inpatient. Plan for HA vs SNF.
[2017-12-28] MEDS: Ibuprofen TAB* 400 MG PO PRN (17:21)
--- NOTE | 2017-12-28 19:39 | RAD ---
Indication: RIGHT lower extremity and back pain. Comparison: November 04, 2016 CT. Technique: Noncontrast CT lumbar sacral spine. Multiplanar reformation. Report: Assess chronic calcification of normal diameter abdominal aorta and common iliac arteries. Physiologic partial distention of the IVC. 1.3 cm stone at the posterior midpole calyx of the LEFT kidney with interval enlargement. Negative for hydronephrosis. Negative for fracture or spondylolysis at any level. Normal vertebral alignment without significant spondylolisthesis at any level. Multilevel degenerative spondylosis and facet joint osteoarthritis. Moderate disc space narrowing throughout the lumbar sacral spine. T12-L1: Unremarkable disc level for age without acquired spinal stenosis. L1-L2: Minimal vertebral endplate osteophytosis and annular disc bulge. Negative for acquired spinal stenosis. L2-L3: Mild vertebral and plate osteophytosis and annular disc bulge. Posterior element osteoarthritis. Resulting mild alteration in the shape of the thecal sac without significant acquired central canal stenosis. Resulting mild bilateral foraminal stenosis. L3-L4: Mild annular disc bulge along with mild posterior element osteoarthritis results in mild bilateral foraminal stenosis. Mild annular disc bulge along with posterior element osteoarthritis results in mild bilateral foraminal stenosis. L4-L5: Mild annular disc bulge along with mild posterior element osteoarthritis results in mild bilateral foraminal stenosis. Mild annular disc bulge along with posterior element osteoarthritis results in mild bilateral foraminal stenosis. L5-S1: Mild spondylitic ridging and annular disc bulge as well as moderately severe facet joint osteoarthritis with resulting moderate bilateral foraminal stenosis. IMPRESSION: 1. 1.3 cm stone at the posterior midpole calyx of the LEFT kidney with interval enlargement. Negative for hydronephrosis. 2. No significant interval change in multilevel degenerative spondylosis and posterior element osteoarthritis with resulting multilevel predominant mild foraminal stenosis more significant moderate foraminal stenosis bilaterally at L5-S1.
[2017-12-28] MEDS: traZODone TAB* 50 MG TAB PO SCH (22:31)
[2017-12-28] MEDS: Atorvastatin* 20 MG TAB PO SCH (22:31)
[2017-12-29] MEDS: Enoxaparin(*) 40 MG/0.4 ML SYR SUBCUT SCH (06:06)
[2017-12-29] MEDS: oxyCODONE/Acetamin 5/325 MG* TAB PO PRN ×3 (06:12→22:09)
[2017-12-29] MEDS: Pregabalin CAP(*) 25 MG PO SCH ×2 (07:45→22:08)
[2017-12-29] MEDS: Carbidopa/Levodop 25/100 MG TAB(*) PO SCH ×4 (07:45→22:09)
[2017-12-29] MEDS: Senna TAB PO SCH (07:45)
[2017-12-29] MEDS: Aspirin TAB* 325 MG PO SCH (07:45)
[2017-12-29] MEDS: Multivitamins/Minerals TAB PO SCH (07:45)
[2017-12-29] MEDS: Cephalexin CAP* 500 MG PO SCH ×3 (07:45→22:09)
[2017-12-29] MEDS: Polyethylene Glycol 3350* 17 GM PACKET PO SCH (07:46)
[2017-12-29] MEDS: Metoprolol Tartrate TAB* 25 MG PO SCH ×2 (07:46→22:09)
[2017-12-29] MEDS: Mometasone/Formoter 100/5 MDI INH SCH ×2 (08:13→19:51)
[2017-12-29] MEDS: Diazepam TAB(*) 5 MG PO PRN (13:04)
--- NOTE | 2017-12-29 18:13 | PN ---
Subjective Date of Service: 12/29/17 Interval History: Patient seen and examined. Patient states his back hurts 2/2 to being moved in elio lift yesterday. Extensive discussion regarding his chronic back issues and the fact that he was told be several neurosurgeons that he is inoperable and CT scan is negative for new patho and that he has already failed two stimulators. Also discussed that escalating doses of narcotics are dangerous. Offered IV steroids to see if we can make him more comfortable but cautioned that it may not help. Patient and agreeable. No futher complaints, denies SOB, no chest pain, no fevers or chills. Family History: Unchanged from Admission Social History: Unchanged from Admission Past Medical History: Unchanged from Admission Objective Active Medications: Acetaminophen (Tylenol Tab*) 650 mg PO Q6H PRN PRN Reason: FEVER/PAIN Last Admin: 12/27/17 20:10 Dose: 650 mg Aspirin (Aspirin Tab*) 325 mg PO DAILY [facility] Last Admin: 12/29/17 07:45 Dose: 325 mg Atorvastatin Calcium (Lipitor*) 20 mg PO BEDTIME [facility] Last Admin: 12/28/17 22:31 Dose: 20 mg Carbidopa/Levodopa (Sinemet 25/100 Tab(*)) 1 tab PO QID [facility] Last Admin: 12/29/17 16:52 Dose: 1 tab Cephalexin HCl (Keflex Cap*) 500 mg PO TID [facility] Stop: 01/01/18 13:59 Last Admin: 12/29/17 12:32 Dose: 500 mg Dexamethasone Sodium Phosphate (Decadron Iv*) 4 mg IV SLOW PU Q8HR [facility] Diazepam (Valium Tab(*)) 5 mg PO Q8H PRN PRN Reason: ANXIETY Last Admin: 12/29/17 13:04 Dose: 5 mg Enoxaparin Sodium (Lovenox(*)) 40 mg SUBCUT DAILY@0600 [facility] Last Admin: 12/29/17 06:06 Dose: 40 mg Ibuprofen (Motrin Tab*) 400 mg PO Q6H PRN PRN Reason: fever/pain Last Admin: 12/28/17 17:21 Dose: 400 mg Meclizine HCl (Antivert Tab*) 12.5 mg PO TID PRN PRN Reason: DIZZINESS Metoprolol Tartrate (Lopressor Tab*) 25 mg PO BID [facility] Last Admin: 12/29/17 07:46 Dose: 25 mg Mometasone Furoate/Formoterol Fumar (Dulera 100/5 Mdi*) 2 puff INH BID [facility] Last Admin: 12/29/17 08:13 Dose: 2 puff Multivitamins/Minerals (Theragran/Minerals Tab*) 1 tab PO DAILY [facility] Last Admin: 12/29/17 07:45 Dose: 1 tab Nitroglycerin (Nitroglycerin Tab 0.4 Mg*) 0.4 mg SL Q5M PRN PRN Reason: PAIN Oxycodone/Acetaminophen (Percocet 5/325 Tab*) 2 tab PO Q4H PRN PRN Reason: PAIN - MODERATE TO SEVERE Last Admin: 12/29/17 12:32 Dose: 2 tab Oxycodone/Acetaminophen (Percocet 5/325 Tab*) 1 tab PO Q4H PRN PRN Reason: PAIN - MILD TO MODERATE Last Admin: 12/28/17 22:32 Dose: 1 tab Polyethylene Glycol/Electrolytes (Miralax*) 17 gm PO DAILY [facility] Last Admin: 12/29/17 07:46 Dose: Not Given Pregabalin (Lyrica Cap(*)) 75 mg PO BID [facility] Last Admin: 12/29/17 07:45 Dose: 75 mg Senna (Senokot Tab*) 1 tab PO DAILY [facility] Last Admin: 12/29/17 07:45 Dose: 1 tab Trazodone HCl (Desyrel Tab*) 50 mg PO BEDTIME [facility] Last Admin: 12/28/17 22:31 Dose: 50 mg Vital Signs - 8 hr 12/29/17 12/29/17 12/29/17 12:14 12:32 13:04 Temperature 97.7 F Pulse Rate 66 Respiratory 16 16 18 Rate Blood Pressure 120/75 (mmHg) O2 Sat by Pulse 98 Oximetry 12/29/17 12/29/17 12/29/17 13:32 13:33 16:36 Temperature 97.4 F Pulse Rate 72 Respiratory 16 16 16 Rate Blood Pressure 125/80 (mmHg) O2 Sat by Pulse 96 Oximetry Oxygen Devices in Use Now: None Appearance: Alert, NAD Ears/Nose/Mouth/Throat: Mucous Membranes Moist Neck: Trachea Midline Respiratory: Symmetrical Chest Expansion and Respiratory Effort, Clear to Auscultation Cardiovascular: NL Sounds; No Murmurs; No JVD, RRR, No Edema Extremities: No Edema, No Clubbing, Cyanosis Neurological: Alert and Oriented x 3, NL Sensation, - - advanced tremors 2/2 PD , decreased sensation and motor to RLE 2/2 drop foot Nutrition: Taking PO's Result Diagrams: 12/27/17 00:55 12/27/17 00:55 Diagnostic Imaging: Patient Name: TIMOTHY RUIZ Medical Record#: [id number] Ordering Physician: MARTA De Luna Acct.#: [id number] : 1945 Age: 72 Sex: M Location: [address] [place] [address] MEDICAL Exam Date: 12/28/171725 ADM Status: ADM IN Order Information: CT SPINE LUMBAR W/O Accession Number: [id number] CPT: 77490 Indication: RIGHT lower extremity and back pain. Comparison: November 04, 2016 CT. Technique: Noncontrast CT lumbar sacral spine. Multiplanar reformation. Report: Assess chronic calcification of normal diameter abdominal aorta and common iliac arteries. Physiologic partial distention of the IVC. 1.3 cm stone at the posterior midpole calyx of the LEFT kidney with interval enlargement. Negative for hydronephrosis. Negative for fracture or spondylolysis at any level. Normal vertebral alignment without significant spondylolisthesis at any level. Multilevel degenerative spondylosis and facet joint osteoarthritis. Moderate disc space narrowing throughout the lumbar sacral spine. T12-L1: Unremarkable disc level for age without acquired spinal stenosis. L1-L2: Minimal vertebral endplate osteophytosis and annular disc bulge. Negative for acquired spinal stenosis. L2-L3: Mild vertebral and plate osteophytosis and annular disc bulge. Posterior element osteoarthritis. Resulting mild alteration in the shape of the thecal sac without significant acquired central canal stenosis. Resulting mild bilateral foraminal stenosis. L3-L4: Mild annular disc bulge along with mild posterior element osteoarthritis results in mild bilateral foraminal stenosis. Mild annular disc bulge along with posterior element osteoarthritis results in mild bilateral foraminal stenosis. L4-L5: Mild annular disc bulge along with mild posterior element osteoarthritis results in mild bilateral foraminal stenosis. Mild annular disc bulge along with posterior element osteoarthritis results in mild bilateral foraminal stenosis. L5-S1: Mild spondylitic ridging and annular disc bulge as well as moderately severe facet joint osteoarthritis with resulting moderate bilateral foraminal stenosis. IMPRESSION: 1. 1.3 cm stone at the posterior midpole calyx of the LEFT kidney with interval enlargement. Negative for hydronephrosis. 2. No significant interval change in multilevel degenerative spondylosis and posterior element osteoarthritis with resulting multilevel predominant mild foraminal stenosis more significant moderate foraminal stenosis bilaterally at L5-S1. <Electronically signed by Tito Jacobs MD in [place]> 12/28/171934 Dictated By: Tito Jacobs MD Dictated Date/Time: 12/28/171934 Transcribed Date/Time: 12/28/171927 Copy to: 1 of 2 Assess/Plan/Problems-Billing Assessment: Mr. Ruiz is a 72 yo male with PMH significant for Parkinson's disease, HTN, HLD , fibromyalgia, vertigo, [place], TIA, chronic back pain, CAD who presented to the emergency room with complaints of a decubitus ulcer on his buttocks, now with additional back pain, acute on chronic. - Patient Problems (1) Sebaceous cyst Code(s): L72.3 - SEBACEOUS CYST SNOMED Code(s): 609571853 Comment: - Left cheek, draining purulent drainage - Wound negative - Wash with warm water and apply bacitracin ointment - Continue Keflex, day 3/5 (2) Parkinson disease Code(s): G20 - PARKINSON'S DISEASE SNOMED Code(s): 51827364 Comment: - No changes in medical management at this time - Continue supportive care (3) Sacral decubitus ulcer Comment: - Sacrum intact, but more bilateral buttocks - Healing, does not appear infected - Recommend off loading device, frequent T+P, and zinc cream (4) Weakness Code(s): R53.1 - WEAKNESS SNOMED Code(s): 49394107 Comment: - 2/2 parkinson's and chronic lumbar radiculopathy - PT/OT consult, max assist - Plan for subacute rehab (5) Chronic pain Code(s): G89.29 - OTHER CHRONIC PAIN SNOMED Code(s): 56873922 Comment: - Chronic back pain - Lumbar CT as above - Also with right foot drop - Per patient's own report, degen spine issues are inoperative - Will trial IV decadron and monitor for effect - Continue percocet and lyrica (6) HTN (hypertension) Code(s): I10 - ESSENTIAL (PRIMARY) HYPERTENSION SNOMED Code(s): 02950735 Comment: - SBP 110-120's - Continue metoprolol (7) CAD (coronary artery disease) Code(s): I25.10 - ATHSCL HEART DISEASE OF [place] CORONARY ARTERY W/O ANG PCTRS SNOMED Code(s): 80851149 Comment: - Asymptomatic/stable - Continue aspirin, Metoprolol and statin (8) Full code status Code(s): Z78.9 - OTHER SPECIFIED HEALTH STATUS SNOMED Code(s): 351916090 Comment: Status and Disposition: Inpatient. Plan for rehab tomorrow
[2017-12-29] MEDS: Dexamethasone IV* 4 MG/ML 1 ML (4 MG) IV SLOW PU SCH (18:22)
[2017-12-29] MEDS: traZODone TAB* 50 MG TAB PO SCH (22:09)
[2017-12-29] MEDS: Atorvastatin* 20 MG TAB PO SCH (22:09)
[2017-12-30] MEDS: Dexamethasone IV* 4 MG/ML 1 ML (4 MG) IV SLOW PU SCH ×2 (02:05→10:01)
[2017-12-30] MEDS: Enoxaparin(*) 40 MG/0.4 ML SYR SUBCUT SCH (06:05)
[2017-12-30] MEDS: Mometasone/Formoter 100/5 MDI INH SCH (07:57)
[2017-12-30] MEDS: Pregabalin CAP(*) 25 MG PO SCH (09:57)
[2017-12-30] MEDS: Cephalexin CAP* 500 MG PO SCH (09:58)
[2017-12-30] MEDS: Metoprolol Tartrate TAB* 25 MG PO SCH (09:58)
[2017-12-30] MEDS: Carbidopa/Levodop 25/100 MG TAB(*) PO SCH (09:58)
[2017-12-30] MEDS: Aspirin TAB* 325 MG PO SCH (09:58)
[2017-12-30] MEDS: Multivitamins/Minerals TAB PO SCH (09:59)
[2017-12-30] MEDS: Senna TAB PO SCH (10:00)
[2017-12-30] MEDS: oxyCODONE/Acetamin 5/325 MG* TAB PO PRN (10:00)
[2017-12-30] MEDS: Polyethylene Glycol 3350* 17 GM PACKET PO SCH (10:00)
[2017-12-30 10:03] LABS: Urine Appearance Cloudy; Urine Blood Negative (Negative); Urine Color Yellow; Urine Ketones Negative (Negative); Urine Protein Negative (Negative); Urine Specific Gravity 1.015 (1.010-1.030); Urine Urobilinogen Negative (Negative)
[2017-12-30 10:27] VITALS: BP 118/61
--- NOTE | 2017-12-30 10:30 | DS ---
CC: Dr. Wetzel * DISCHARGE SUMMARY: DATE OF ADMISSION: 12/27/17 DATE OF DISCHARGE: 12/30/17 ATTENDING PHYSICIAN: Dr. Silvano Cano.* (DICTATED BY BASILIA REEDER NP) PRIMARY CARE PHYSICIAN: Dr. Filemon Wetzel. HOSPITAL COURSE: This is a 72-year-old gentleman well known to our service with a history of advanced Parkinson's disease, was recently hospitalized few months ago for refractory symptoms from his Parkinson's and generalized weakness , pain, and inability to ambulate. Patient had been discharged back to home in September per the request of the family as he is cared for by his ; however, on 12/27/17, patient and his had reported some worsening low back pain and pain to the buttocks region. Patient had a pressure ulcer not on his sacrum, but essentially on the buttocks themselves, it has been progressive secondary to the patient's gait dysfunction because of his advanced Parkinson's condition. Also, patient has chronic low back pain issues, having failed 2 stimulators and is reportedly nonoperable secondary to his comorbidities. He was told by several neurosurgeons that he had failed most treatments and then even with the stimulators being implanted, he still would have chronic pain issues. Upon presentation to the emergency department, he seemed to be lethargic as well. He is on higher dose diazepam and narcotics as well. The diazepam was reduced to 5 mg 3 times a day. Also it was noted that in addition to the sacral wounds, he has a sebaceous cyst on the left cheek that was draining, which had also been a new issue for him. He had been admitted with no active infection in the wounds, no leukocytosis and no fever. However, it was noted with physical therapy that the patient does definitively have an inability to ambulate and would benefit from more of a custodial environment. Patient was given his pain medication. He was also started on Decadron low dose 4 mg q.8 hours and had a lumbar CT, which showed his persistent degenerative changes and osteophyte formation, which was contributing to his right lower extremity radiculopathy and footdrop. Again, patient was started on steroids, difficult to say whether he is having good effect from this or not because he is essentially bedbound at this point; however, he does report his pain is to be more intermittent now as opposed to persistent while he has been in bed. Patient had a wound care consult recommending offloading, frequent turning and repositioning and zinc cream. Also for the wound to the left cheek, continue to wash and he was placed on Keflex for a 5-day course, he is currently on day 4 of 5. For the rest of his comorbidities, his home medications were continued. Physical Therapy evaluation showed that the patient would benefit from custodial and physical rehab. Patient was agreeable to this plan. DISCHARGE DIAGNOSES: 1. Sacral decubitus ulcer, noninfected. 2. Advanced Parkinson's disease. 3. Sebaceous cyst. 4. Hypertension. 5. Hyperlipidemia. 6. History of coronary artery disease. 7. Chronic obstructive pulmonary disease, not in exacerbation. 8. Lumbar radiculopathy and chronic back pain. 9. History of transient ischemic attack. DISCHARGE MEDICATIONS: 1. Tylenol 650 mg q.6 hours as needed. 2. Aspirin 324 mg daily. 3. Lipitor 20 mg at bedtime. 4. Sinemet 25/100 one tablet 4 times a day. 5. Keflex 500 mg 3 times a day for 2 more days. 6. Diazepam 5 mg q.8 hours as needed. 7. Meclizine 12.5 mg 3 times a day as needed. 8. Metoprolol tartrate 25 mg 2 times a day. 9. Multivitamin 1 tablet daily. 10. Percocet 5/325 mg 1 tablet q.4 hours as needed. 11. Lyrica 75 mg 2 times a day. 12. Trazodone 50 mg at bedtime. PHYSICAL EXAMINATION: On day of discharge, patient is alert, no acute distress. Vital Signs: Blood pressure 124/68, heart rate 65, temperature 98.8, respiratory rate 16. HEENT: The patient is atraumatic, normocephalic. PERRLA with nonicteric sclerae. Neck is supple, nontender. No JVD noted. No thyromegaly appreciated. Cardiovascular: S1, S2 are present. No gallops or rubs noted. Lungs are clear bilaterally to auscultation at the apices, diminished at the bases. No wheezing, rhonchi, or rales appreciated. Abdomen is soft, nontender, nondistended. Positive bowel sounds in all 4 quadrants. Musculoskeletal: There is no clubbing and no cyanosis. He has +2 distal pulses palpable. Neurologic: He has baseline parkinsonian tremor at rest. Also has decreased motor and sensation to the right lower extremity with a mild amount of right footdrop. Psychiatric: He is cooperative and appropriate. LABORATORY DATA: WBCs 9.7, RBCs 4.31, hemoglobin 13.6, hematocrit 40, platelets 172. Sodium 139, potassium 4.4, chloride 104, CO2 29, creatinine 0.73 , GFR 105.3, BUN 24, glucose 105, calcium 9.5, magnesium 2.0. Bilirubin 0.50, AST 14, ALT 3. Alk phos 62. CRP 4.3. Total protein 6.4, albumin 4.0, globulin 2.4. DISCHARGE DISPOSITION: The patient was discharged in stable condition to [facility]. All questions were answered. I had an extensive discussion with the patient and his about his plan for discharge for added medication being the patient was on Decadron, I will also send him to [facility] on a tapering dose of prednisone for his radicular pain, and patient is agreeable to that. BASILIA REEDER NP [id number]/CPS #: [id number] NANI
== END 2017-12-30 11:15 | DRG 594 ==
LOC: ED 23:04 → MED 12-27 02:47
PROVIDERS: ADMIT Internal Medicine; ATTEND Internal Medicine
DX: L89.152 Pressure ulcer of sacral region, stage 2 (principal); G20 Parkinson's disease; E78.5 Hyperlipidemia, unspecified; I25.10 Atherosclerotic heart disease of native coronary artery without angina pectoris; I11.9 Hypertensive heart disease without heart failure; L72.3 Sebaceous cyst; J44.9 Chronic obstructive pulmonary disease, unspecified; M54.16 Radiculopathy, lumbar region; M54.89 Other dorsalgia; M79.7 Fibromyalgia; Z86.73 Personal history of transient ischemic attack (TIA), and cerebral infarction without residual deficits; I25.2 Old myocardial infarction; Z79.1 Long term (current) use of non-steroidal anti-inflammatories (NSAID); Z79.82 Long term (current) use of aspirin; Z79.891 Long term (current) use of opiate analgesic; Z79.899 Other long term (current) drug therapy; Z88.8 Allergy status to other drugs, medicaments and biological substances; Z82.3 Family history of stroke; Z80.0 Family history of malignant neoplasm of digestive organs; Z87.891 Personal history of nicotine dependence
CPT/HCPCS: 36415; 72131; 80053; 81003; 81015; 83735; 85025; 85610; 85730; 86140; 87070; 87077; 87205; 87640; 87641; 94640; 94760; 99284; A9270-GY; G8978-GP-CJ; G8978-GP-CK; G8979-GP-CI; J1100; J1170; J1650; J2270; J2405

== ENCOUNTER 2017-12-27 00:31 | Emergency (ER) | payer MEDICARE | END 2017-12-27 02:48 | LOC: ED 00:31 | DX: R53.1 Weakness (principal) | CPT/HCPCS: 99284 ==